=== PATIENT | female | born 1970 | race African-American/Black ===

== ENCOUNTER 2017-08-26 23:00 | Emergency (ER) | payer SELFPAY ==
[~2017-08-26] VITALS: Ht 157.5 cm; Wt 52.2 kg
[~2017-08-26 23:00] MED LIST: AMOXICILLIN500 MG; AZITHROMYCIN600 MG; BACTRIM-DS1 EA ORAL; CEFUROXIME250 MG; FLUCONAZOLE100 MG; FLUCONAZOLE100 MG ORAL; GARAMYCIN 0.3%1 DROP; IBUPROFEN600 MG ORAL; NYSTATIN100000 UN1; PERCOCET 5-3251 EACH ORAL; SULFAMETHOXAZO1 EAC2; TIVICAY50 MG PO; TRAMADOL HCL50 MG; TRUVADA 200 MG1 EAC1 ORAL; VALCYTE450 MG ORAL; ZITHROMAX600 MG ORAL
[2017-08-26 23:10] VITALS: BP 125/87
[2017-08-27] MEDS ORDERED: TRUFORM COMPRE1 EAC1 MC (00:12)
[2017-08-27 00:20] VITALS: BP 122/84
--- NOTE | 2017-08-28 00:44 | Emergency Room Report ---
History of Present Illness General Chief Complaint: Pain Source: Medical Record Present Illness HPI 47-year-old female presents ED for evaluation. Brought in by EMS. States she feels generalized weakness for many weeks now. Also complaining of swelling in her bilateral legs. On-and-off for years. Denies chest pain or shortness of breath. Denies fevers or chills. No other aggravating relieving factors. Denies any other associated symptoms Allergies: Coded Allergies: AZITHROMYCIN (Verified Adverse Reaction, Unknown, aphasic, altered, ) Patient History Past Medical History: none Past Surgical History: none Pertinent Family History: none Social History: Denies: smoking, alcohol use, drug use Last Menstrual Period: spotted this month Now: No Immunizations: UTD Reviewed Nursing Documentation: PMH: Agreed, PSxH: Agreed Nursing Documentation-PMH Hx Cardiac Problems: No Hx Cancer: No Hx Gastrointestinal Problems: No Hx Neurological Problems: Yes - cmv Hx Head Trauma: Yes Review of Systems All Other Systems: negative except mentioned in HPI Physical Exam Vital Signs Date Time Temp Pulse Resp B/P (MAP) Pulse Ox O2 Delivery O2 Flow Rate FiO2 08/26/17 22:58 98.5 92 18 127/88 99 Room Air 98.4 Sp02 EP Interpretation: reviewed, normal General Appearance: no apparent distress, alert, GCS 15, non-toxic Head: normocephalic, atraumatic Eyes: bilateral eye normal inspection, bilateral eye PERRL ENT: hearing grossly normal, normal pharynx, no angioedema, normal voice Neck: full range of motion, supple/symm/no masses Respiratory: chest non-tender, lungs clear, normal breath sounds, speaking full sentences Cardiovascular #1: regular rate, rhythm, no edema Cardiovascular #2: 2+ carotid (R), 2+ carotid (L), 2+ radial (R), 2+ radial (L) , 2+ dorsalis pedis (R), 2+ dorsalis pedis (L) Gastrointestinal: normal bowel sounds, non tender, soft, non-distended, no guarding, no rebound Rectal: deferred Genitourinary: normal inspection, no CVA tenderness Musculoskeletal: back normal, gait/station normal, normal range of motion, non- tender, swelling - 1+ pitting edema b/l LEs Neurologic: alert, oriented x3, responsive, motor strength/tone normal, sensory intact, speech normal Psychiatric: judgement/insight normal, memory normal, mood/affect normal, no suicidal/homicidal ideation Reflexes: 3+ bicep (R), 3+ bicep (L), 3+ tricep (R), 3+ tricep (L), 3+ knee (R) , 3+ knee (L) Skin: normal color, no rash, warm/dry, well hydrated Lymphatic: no adenopathy Medical Decision Making Diagnostic Impression: Primary Impression: Pedal edema ER Course 47-year-old female presents ED complaining of generalized weakness, also complaining of bilateral leg swelling DifferentialCHF, viral syndrome, dehydration, Patient placed in chair. Initial history and physical reveals a middle-aged female in no acute distress. Lungs clear. Heart sounds normal. Abdomen soft. Mucous membranes are moist. Good capillary refill. There is 1+ pitting edema to bilateral lower extremities. No calf tenderness. Patient states his condition is chronic for years. Suspicion for DVT is low. We will prescribe compression stockings Diagnosispedal edema Stable and discharged home with compression stockings. Follow-up with PMD. Return to ED if symptoms recur or worsen Last Vital Signs Date Time Temp Pulse Resp B/P (MAP) Pulse Ox O2 Delivery O2 Flow Rate FiO2 08/27/17 00:20 [id number] 78 16 122/84 100 Room Air 208.8 Status: improved Disposition: HOME, SELF-CARE Condition: Stable Scripts Comp.stocking,Knee,Regular,Med (Truform Compression Stocking) 1 Each Each EACH , #2 Prov: JOON JENKINS M.D. 08/27/17 Referrals: NOT CHOSEN MIO/,REFERRING (PCP) Patient Instructions: Edema, [id number] JOON JENKINS M.D. Aug 28, 2017 00:44
== END 2017-08-27 00:25 | disposition home or self-care (01) ==
LOC: EDBD 23:00 → EMR 23:16
DX: R60.0 Localized edema (principal); R53.1 Weakness; Z88.1 Allergy status to other antibiotic agents
CPT/HCPCS: 99283

== ENCOUNTER 2017-12-12 20:15 | Inpatient (IN) | payer SELFPAY ==
[~2017-12-12] VITALS: Ht 157.5 cm; Wt 52.2 kg
[~2017-12-12 20:15] MED LIST changes: +TRUFORM COMPRE1 EAC1 MC
[2017-12-12] MEDS ORDERED: Cefepime HCl 1 GM in NS 55 ML IV STA (20:26)
[2017-12-12 20:30] VITALS: BP 130/64
[2017-12-12] MEDS ORDERED: NS 1000ml 1,600 ML IVLG ONE (20:30)
[2017-12-12 21:11] LABS: APPEARANCE,URINE CLOUDY; BILIRUBIN, URINE NEGATIVE (NEGATIVE); COLOR,URINE PALE YELLOW; GLUCOSE, URINE (UA) NEGATIVE (NEGATIVE); HEMATOCRIT 19.5 % (37.0-47.0); KETONES,URINE NEGATIVE (NEGATIVE); LEUKOCYTE ESTERASE ,URINE 3+ (NEGATIVE); MEAN CORPUSCULAR VOLUME 87 FL (80-99); NITRITE,URINE NEGATIVE (NEGATIVE); PH,URINE 6 (4.5-8.0); PLATELET COUNT 287 K/UL (150-450); PROTEIN,URINE 3+ (NEGATIVE); RED BLOOD COUNT 2.23 M/UL (4.20-5.40); RED CELL DISTRIBUTION WIDTH 20.3 % (11.6-14.8); UROBILINOGEN,URINE 1 MG/DL (0.0-1.0); WHITE BLOOD COUNT 7.2 K/UL (4.8-10.8)
[2017-12-12 21:23] LABS: INR 1.1 (0.9-1.1)
[2017-12-12 21:30] VITALS: BP 114/60
[2017-12-12 21:37] LABS: ALANINE AMINOTRANSFERASE 14 U/L (12-78); ALBUMIN 2.4 G/DL (3.4-5.0); ALBUMIN/GLOBULIN RATIO 0.4 (1.0-2.7); ALKALINE PHOSPHATASE 68 U/L (46-116); ANION GAP 8 mmol/L (5-15); ASPARTATE AMINO TRANSFERASE 18 U/L (15-37); BILIRUBIN,TOTAL 0.3 MG/DL (0.2-1.0); BLOOD UREA NITROGEN 5 mg/dL (7-18); CALCIUM 9.1 MG/DL (8.5-10.1); CARBON DIOXIDE 28 MMOL/L (21-32); CHLORIDE 99 MMOL/L (98-107); CREATINE KINASE 35 U/L (26-308); SODIUM 136 MMOL/L (136-145)
[2017-12-12 21:40] LABS: POTASSIUM 2.6 MMOL/L (3.5-5.1)
--- NOTE | 2017-12-12 21:47 | Emergency Room Report ---
History of Present Illness General Chief Complaint: Generalized Weakness Source: Patient Present Illness HPI Patient presents with fevers chills weakness and myalgias and arthralgias. According to paramedics she had similar complaints and was taken to [facility] last week. She states she was kept there for 2 days and then discharged. She had complained to paramedics of generalized weakness. O2 sat 98% in field. She denies pain to RN. She states she was on antivirals in the past for HIV, then states she was stopped and no longer taking. She claims the h/o HIV was in error. She was admitted in 2013 with AIDS. Seen in August with edema and generalized weakness. No cough, sore throat, headache, NVD, dysuria, extremity pain. Denies depression. Some questionable answers to questions by RN, suggesting some delusional thinking. 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 - according to paramedics, she is homeless Last Menstrual Period: n/a Reviewed Nursing Documentation: PMH: Agreed; PSxH: Agreed Nursing Documentation-PMH Past Medical History: No Stated History Hx Cardiac Problems: No Hx Cancer: No Hx Gastrointestinal Problems: No Hx Neurological Problems: Yes - cmv Hx Head Trauma: Yes Review of Systems All Other Systems: negative except mentioned in HPI Physical Exam Vital Signs Date Time Temp Pulse Resp B/P (MAP) Pulse Ox O2 Delivery O2 Flow Rate FiO2 12/12/17 20:14 102.8 121 16 123/65 95 Room Air 102.7 Sp02 EP Interpretation: reviewed, normal General Appearance: no apparent distress, GCS 15, thin, Chronically Ill Head: normocephalic Eyes: bilateral eye PERRL, bilateral eye EOMI, bilateral eye conjunctivae pale ENT: moist mucus membranes Neck: supple Respiratory: lungs clear, normal breath sounds Cardiovascular #1: tachycardia Cardiovascular #2: 2+ radial (R) Gastrointestinal: normal inspection, normal bowel sounds, non tender, no mass, non-distended, scaphoid Rectal: heme negative stool Genitourinary: no CVA tenderness Musculoskeletal: back normal, gait/station normal, normal range of motion Neurologic: alert, motor strength/tone normal, DTRs symmetric, sensory intact, normal gait - hesitant with weakness, speech normal, oriented - X2 Psychiatric: no suicidal/homicidal ideation, other - slightly delusional Skin: normal inspection, warm/dry Medical Decision Making Diagnostic Impression: Primary Impression: Sepsis Qualified Codes: A41.9 - Sepsis, unspecified organism Additional Impressions: Profound anemia Qualified Codes: D64.9 - Anemia, unspecified Hypokalemia H/O human immunodeficiency virus infection UTI (urinary tract infection) Qualified Codes: N39.0 - Urinary tract infection, site not specified Protein calorie malnutrition Qualified Codes: E44.0 - Moderate protein-calorie malnutrition Delusions ER Course Patient presents with fever and chills and weakness with possible HIV and non- compliance. DDx: pna, uti, sepsis, electrolyte abnormalities amongst others. Evaluation with BC, lactate, CXR, EKG. Treatment with IV hydration and tylenol. Will consider antibiotics based on findings. The fact she might be immune compromised will necesitate broad spectrum antibiotics. Her history is variable and she is somewhat delusional telling RN "I am white and my skin color will change in a few minutes". May need psychiatric consultation. Not suicidal. EKG without injury. CXR clear. Labs with normal WBC (seen in past with leukopenia) with L shift, profound anemia, low potassium, pyuria. Initial lactate slightly elevated. (Prior H/H was normal 2013.) Potassium given PO. Antibiotics begun to cover urine. Blood ordered as expected drop in H/H with hydration. No evidence of active bleeding. Discussed risks and benefits of blood. Patient agrees with transfusion. Transfusion ordered. Patient clinically improved but still somewhat delusional. VS somewhat improved. Admit tele Dr. Jeffery. Laboratory Tests Test 12/12/17 20:40 White Blood Count 7.2 K/UL (4.8-10.8) Red Blood Count 2.23 M/UL (4.20-5.40) L Hemoglobin 6.0 G/DL (12.0-16.0) *L Hematocrit 19.5 % (37.0-47.0) L Mean Corpuscular Volume 87 FL (80-99) Mean Corpuscular Hemoglobin 26.8 PG (27.0-31.0) L Mean Corpuscular Hemoglobin Concent 30.6 G/DL (32.0-36.0) L Red Cell Distribution Width 20.3 % (11.6-14.8) H Platelet Count 287 K/UL (150-450) Mean Platelet Volume 6.5 FL (6.5-10.1) Neutrophils (%) (Auto) % (45.0-75.0) Lymphocytes (%) (Auto) % (20.0-45.0) Monocytes (%) (Auto) % (1.0-10.0) Eosinophils (%) (Auto) % (0.0-3.0) Basophils (%) (Auto) % (0.0-2.0) Differential Total Cells Counted 100 Neutrophils % (Manual) 81 % (45-75) H Lymphocytes % (Manual) 11 % (20-45) L Monocytes % (Manual) 7 % (1-10) Eosinophils % (Manual) 0 % (0-3) Basophils % (Manual) 0 % (0-2) Band Neutrophils 1 % (0-8) Platelet Estimate Adequate Platelet Morphology Normal Polychromasia 1+ Hypochromasia 2+ Anisocytosis 2+ Prothrombin Time 11.4 SEC (9.30-11.50) Prothrombin Time INR 1.1 (0.9-1.1) PTT 35 SEC (23-33) H Urine Color Pale yellow Urine Appearance Cloudy Urine pH 6 (4.5-8.0) Urine Specific [place] 1.010 (1.005-1.035) Urine Protein 3+ (NEGATIVE) H Urine Glucose (UA) Negative (NEGATIVE) Urine Ketones Negative (NEGATIVE) Urine Occult Blood 3+ (NEGATIVE) H Urine Nitrite Negative (NEGATIVE) Urine Bilirubin Negative (NEGATIVE) Urine Urobilinogen 1 MG/DL (0.0-1.0) H Urine Leukocyte Esterase 3+ (NEGATIVE) H Urine RBC 2-4 /HPF (0 - 2) H Urine WBC Tntc /HPF (0 - 2) H Urine Squamous Epithelial Cells Few /LPF (NONE/OCC) Urine Bacteria Many /HPF (NONE) H Sodium Level 136 MMOL/L (136-145) Potassium Level 2.6 MMOL/L (3.5-5.1) *L Chloride Level 99 MMOL/L (98-107) Carbon Dioxide Level 28 MMOL/L (21-32) Anion Gap 8 mmol/L (5-15) Blood Urea Nitrogen 5 mg/dL (7-18) L Creatinine 1.0 MG/DL (0.55-1.30) Estimate Glomerular Filtration Rate > 60 mL/min (>60) Glucose Level 90 MG/DL (74-106) Lactic Acid Level 2.10 mmol/L (0.4-2.0) H Calcium Level 9.1 MG/DL (8.5-10.1) Total Bilirubin 0.3 MG/DL (0.2-1.0) Aspartate Amino Transferase (AST) 18 U/L (15-37) Alanine Aminotransferase (ALT) 14 U/L (12-78) Alkaline Phosphatase 68 U/L (46-116) Total Creatine Kinase 35 U/L (26-308) Pro-B-Type Natriuretic Peptide 179 pg/mL (0-125) H Total Protein 7.8 G/DL (6.4-8.2) Albumin 2.4 G/DL (3.4-5.0) L Globulin 5.4 g/dL Albumin/Globulin Ratio 0.4 (1.0-2.7) L EKG Diagnostic Results Rate: tachycardiac ST Segments: no acute changes Rhythm Strip Diag. Results EP Interpretation: yes Rhythm: no PVC's, no ectopy, other - ST Chest X-Ray Diagnostic Results Chest X-Ray Diagnostic Results : Chest X-Ray Ordered: Yes # of Views/Limited/Complete: 1 View Indication: Other EP Interpretation: Yes Interpretation: no consolidation, no effusion, no pneumothorax Impression: No acute disease Electronically Signed by: Electronically signed by Yonas Soto MD Last Vital Signs Date Time Temp Pulse Resp B/P (MAP) Pulse Ox O2 Delivery O2 Flow Rate FiO2 12/13/17 00:00 98.4 89 18 98.4 12/12/17 22:30 112/67 99 Room Air Status: improved Disposition: ADMITTED INPATIENT Condition: Serious Referrals: NOT CHOSEN MIO/,REFERRING (PCP) Yonas Soto M.D. Dec 12, 2017 21:47
[2017-12-12 22:30] VITALS: BP 112/67
[2017-12-12 23:30] VITALS: BP 110/63
[2017-12-13 00:30] VITALS: BP 104/66
[2017-12-13 04:00] VITALS: BP 102/67
--- NOTE | 2017-12-13 07:39 | Infectious Diseases Prog Note ---
Assessment/Plan Problems: (1) Sepsis Assessment & Plan: will send blood culture and start vancomycin with cefepime empirically , add zithromax to cover for possible atypical pneumonia since she is immunocompromised (2) UTI (urinary tract infection) Assessment & Plan: will start cefepime pending urine culture (3) Fever Assessment & Plan: due to the above , continue antibiotics , and tylenol (4) HIV (human immunodeficiency virus infection) Assessment & Plan: not on any treatment since 2016, will order viral load and CD4 to assess her compliance and stage , will screen for syphilis, chlamydia and gonorrhoea Subjective Allergies: Coded Allergies: No Known Allergies (Unverified , 12/12/17) Objective Vital Signs Last 24 Hour Vital Signs Date Time Temp Pulse Resp B/P (MAP) Pulse Ox O2 Delivery O2 Flow Rate FiO2 12/13/17 04:00 97.2 75 18 102/67 98 Room Air 97.2 12/13/17 04:00 78 12/13/17 01:15 98.4 88 16 104/64 98 Room Air 12/13/17 00:30 98.4 78 18 104/66 99 Room Air 98.4 12/13/17 00:00 98.4 89 18 98.4 12/12/17 23:45 98.4 87 16 98.4 12/12/17 23:30 98.8 87 16 110/63 99 Room Air 98.8 12/12/17 22:30 99.4 89 16 112/67 99 Room Air 99.4 12/12/17 21:30 99.9 108 16 114/60 98 Room Air 99.9 12/12/17 21:07 102.7 12/12/17 20:30 102.7 121 16 130/64 97 Room Air 102.7 12/12/17 20:14 102.8 121 16 123/65 95 Room Air 102.7 Height (Feet): 5 Height (Inches): 2.00 Weight (Pounds): 115 Laboratory Tests Test 12/12/17 20:40 12/12/17 22:45 White Blood Count 7.2 K/UL (4.8-10.8) Red Blood Count 2.23 M/UL (4.20-5.40) L Hemoglobin 6.0 G/DL (12.0-16.0) *L Hematocrit 19.5 % (37.0-47.0) L Mean Corpuscular Volume 87 FL (80-99) Mean Corpuscular Hemoglobin 26.8 PG (27.0-31.0) L Mean Corpuscular Hemoglobin Concent 30.6 G/DL (32.0-36.0) L Red Cell Distribution Width 20.3 % (11.6-14.8) H Platelet Count 287 K/UL (150-450) Mean Platelet Volume 6.5 FL (6.5-10.1) Neutrophils (%) (Auto) % (45.0-75.0) Lymphocytes (%) (Auto) % (20.0-45.0) Monocytes (%) (Auto) % (1.0-10.0) Eosinophils (%) (Auto) % (0.0-3.0) Basophils (%) (Auto) % (0.0-2.0) Differential Total Cells Counted 100 Neutrophils % (Manual) 81 % (45-75) H Lymphocytes % (Manual) 11 % (20-45) L Monocytes % (Manual) 7 % (1-10) Eosinophils % (Manual) 0 % (0-3) Basophils % (Manual) 0 % (0-2) Band Neutrophils 1 % (0-8) Platelet Estimate Adequate Platelet Morphology Normal Polychromasia 1+ Hypochromasia 2+ Anisocytosis 2+ Prothrombin Time 11.4 SEC (9.30-11.50) Prothromb Time International Ratio 1.1 (0.9-1.1) Activated Partial Thromboplast Time 35 SEC (23-33) H Urine Color Pale yellow Urine Appearance Cloudy Urine pH 6 (4.5-8.0) Urine Specific [place] 1.010 (1.005-1.035) Urine Protein 3+ (NEGATIVE) H Urine Glucose (UA) Negative (NEGATIVE) Urine Ketones Negative (NEGATIVE) Urine Occult Blood 3+ (NEGATIVE) H Urine Nitrite Negative (NEGATIVE) Urine Bilirubin Negative (NEGATIVE) Urine Urobilinogen 1 MG/DL (0.0-1.0) H Urine Leukocyte Esterase 3+ (NEGATIVE) H Urine RBC 2-4 /HPF (0 - 2) H Urine WBC Tntc /HPF (0 - 2) H Urine Squamous Epithelial Cells Few /LPF (NONE/OCC) Urine Bacteria Many /HPF (NONE) H Sodium Level 136 MMOL/L (136-145) Potassium Level 2.6 MMOL/L (3.5-5.1) *L Chloride Level 99 MMOL/L (98-107) Carbon Dioxide Level 28 MMOL/L (21-32) Anion Gap 8 mmol/L (5-15) Blood Urea Nitrogen 5 mg/dL (7-18) L Creatinine 1.0 MG/DL (0.55-1.30) Estimat Glomerular Filtration Rate > 60 mL/min (>60) Glucose Level 90 MG/DL (74-106) Lactic Acid Level 2.10 mmol/L (0.4-2.0) H 0.90 mmol/L (0.66-2.22) Calcium Level 9.1 MG/DL (8.5-10.1) Total Bilirubin 0.3 MG/DL (0.2-1.0) Aspartate Amino Transf (AST/SGOT) 18 U/L (15-37) Alanine Aminotransferase (ALT/SGPT) 14 U/L (12-78) Alkaline Phosphatase 68 U/L (46-116) Total Creatine Kinase 35 U/L (26-308) Pro-B-Type Natriuretic Peptide 179 pg/mL (0-125) H Total Protein 7.8 G/DL (6.4-8.2) Albumin 2.4 G/DL (3.4-5.0) L Globulin 5.4 g/dL Albumin/Globulin Ratio 0.4 (1.0-2.7) L Current Medications Medications (Trade) Dose Ordered Sig/Thierno Route PRN Reason Start Time Stop Time Status Last Admin Dose Admin Acetaminophen (Tylenol) 650 mg Q6H PRN ORAL Mild Pain/Temp > 100.5 12/13/17 07:00 01/12/18 06:59 Azithromycin (Zithromax) 250 mg DAILY ORAL 12/13/17 09:00 12/20/17 08:59 UNV Cefepime HCl 2 gm/ Dextrose 55 ml @ 110 mls/hr EVERY 12 HOURS IVPB 12/13/17 09:00 12/20/17 08:59 UNV Pantoprazole (Protonix) 40 mg DAILY IVP 12/13/17 09:00 01/12/18 08:59 Sodium Chloride 1,000 ml @ 100 mls/hr Q10H IV 12/13/17 08:00 01/12/18 07:59 Vancomycin HCl (Vanco rx to dose) 1 ea DAILY PRN MISC Per rx protocol 12/13/17 07:45 01/12/18 07:44 Vesta Valiente M.D. Dec 13, 2017 07:39
[2017-12-13 07:55] VITALS: BP 107/73
[2017-12-13] MEDS: Cefepime HCl 2 GM in D5W 110 ML IVPB SCH ×2 (08:44→22:04)
[2017-12-13] MEDS: Pantoprazole Inj IVP SCH (08:44)
[2017-12-13] MEDS: Azithromycin 250mg tab ORAL SCH (08:45)
--- NOTE | 2017-12-13 08:54 | General Progress Note ---
Assessment/Plan Assessment/Plan patient is seen and examined. Dictation in progress Subjective Allergies: Coded Allergies: No Known Allergies (Unverified , 12/12/17) Objective Last 24 Hour Vital Signs Date Time Temp Pulse Resp B/P (MAP) Pulse Ox O2 Delivery O2 Flow Rate FiO2 12/13/17 07:55 99.6 88 18 107/73 100 Room Air 99.6 12/13/17 04:00 97.2 75 18 102/67 98 Room Air 97.2 12/13/17 04:00 78 12/13/17 01:15 98.4 88 16 104/64 98 Room Air 12/13/17 00:30 98.4 78 18 104/66 99 Room Air 98.4 12/13/17 00:00 98.4 89 18 98.4 12/12/17 23:45 98.4 87 16 98.4 12/12/17 23:30 98.8 87 16 110/63 99 Room Air 98.8 12/12/17 22:30 99.4 89 16 112/67 99 Room Air 99.4 12/12/17 21:30 99.9 108 16 114/60 98 Room Air 99.9 12/12/17 21:07 102.7 12/12/17 20:30 102.7 121 16 130/64 97 Room Air 102.7 12/12/17 20:14 102.8 121 16 123/65 95 Room Air 102.7 Intake and Output 12/12/17 12/13/17 19:00 07:00 Intake Total 1000 ml Balance 1000 ml IV Total 1000 ml # Voids 6 # Bowel Movements 1 Laboratory Tests 12/12/17 20:40: White Blood Count 7.2, Red Blood Count 2.23L, Hemoglobin 6.0*L, Hematocrit 19.5L , Mean Corpuscular Volume 87, Mean Corpuscular Hemoglobin 26.8L, Mean Corpuscular Hemoglobin Concent 30.6L, Red Cell Distribution Width 20.3H, Platelet Count 287, Mean Platelet Volume 6.5, Neutrophils (%) (Auto) , Lymphocytes (%) (Auto) , Monocytes (%) (Auto) , Eosinophils (%) (Auto) , Basophils (%) (Auto) , Differential Total Cells Counted 100, Neutrophils % ( Manual) 81H, Lymphocytes % (Manual) 11L, Monocytes % (Manual) 7, Eosinophils % ( Manual) 0, Basophils % (Manual) 0, Band Neutrophils 1, Platelet Estimate Adequate, Platelet Morphology Normal, Polychromasia 1+, Hypochromasia 2+, Anisocytosis 2+, Prothrombin Time 11.4, Prothromb Time International Ratio 1.1, Activated Partial Thromboplast Time 35H, Urine Color Pale yellow, Urine Appearance Cloudy, Urine pH 6, Urine Specific [place] 1.010, Urine Protein 3+H, Urine Glucose (UA) Negative, Urine Ketones Negative, Urine Occult Blood 3+H, Urine Nitrite Negative, Urine Bilirubin Negative, Urine Urobilinogen 1H, Urine Leukocyte Esterase 3+H, Urine RBC 2-4H, Urine WBC TntcH, Urine Squamous Epithelial Cells Few, Urine Bacteria ManyH, Sodium Level 136, Potassium Level 2.6*L, Chloride Level 99, Carbon Dioxide Level 28, Anion Gap 8, Blood Urea Nitrogen 5L, Creatinine 1.0, Estimat Glomerular Filtration Rate > 60, Glucose Level 90, Lactic Acid Level 2.10H, Calcium Level 9.1, Total Bilirubin 0.3, Aspartate Amino Transf (AST/SGOT) 18, Alanine Aminotransferase (ALT/SGPT) 14, Alkaline Phosphatase 68, Total Creatine Kinase 35, Pro-B-Type Natriuretic Peptide 179H, Total Protein 7.8, Albumin 2.4L, Globulin 5.4, Albumin/Globulin Ratio 0.4L 12/12/17 22:45: Lactic Acid Level 0.90 Height (Feet): 5 Height (Inches): 2.00 Weight (Pounds): 115 Padmini Jeffery MD Dec 13, 2017 08:54
[2017-12-13] MEDS ORDERED: Cefepime HCl 1 GM in D5W 55 ML IVPB SCH (09:00)
[2017-12-13] MEDS ORDERED: Vancomycin 1250mg/D5W 250ml IVPB ONE (10:00)
[2017-12-13 10:55] LABS: HEMATOCRIT 28.3 % (37.0-47.0); MEAN CORPUSCULAR VOLUME 90 FL (80-99); PLATELET COUNT 255 K/UL (150-450); RED BLOOD COUNT 3.14 M/UL (4.20-5.40); RED CELL DISTRIBUTION WIDTH 16.8 % (11.6-14.8); WHITE BLOOD COUNT 5.2 K/UL (4.8-10.8)
[2017-12-13 10:58] LABS: HEMOGLOBIN 8.9 G/DL (12.0-16.0)
--- NOTE | 2017-12-13 11:13 | Diagnostic Imaging Report ---
Indication: Dyspnea Comparison: 09/20/2013 A single view chest radiograph was obtained. Findings: Cardiomediastinal appearance is within normal limits for age. Pulmonary vascularity is appropriate. The diaphragmatic contour is smooth and costophrenic angles are sharp. No pleural effusions are identified. The bones are unremarkable. Impression: No acute findings
[2017-12-13 11:15] LABS: ALANINE AMINOTRANSFERASE 12 U/L (12-78); ALBUMIN 2.1 G/DL (3.4-5.0); ALBUMIN/GLOBULIN RATIO 0.5 (1.0-2.7); ALKALINE PHOSPHATASE 62 U/L (46-116); ANION GAP 14 mmol/L (5-15); ASPARTATE AMINO TRANSFERASE 14 U/L (15-37); BILIRUBIN,TOTAL 0.3 MG/DL (0.2-1.0); BLOOD UREA NITROGEN 6 mg/dL (7-18); CALCIUM 7.7 MG/DL (8.5-10.1); CARBON DIOXIDE 21 MMOL/L (21-32); CHLORIDE 107 MMOL/L (98-107); CREATININE 0.7 MG/DL (0.55-1.30); POTASSIUM 3.3 MMOL/L (3.5-5.1); SODIUM 142 MMOL/L (136-145)
[2017-12-13] MEDS ORDERED: LORazepam 1mg tab ORAL PRN (12:00)
[2017-12-13 12:03] VITALS: BP 110/70
--- NOTE | 2017-12-13 12:41 | Consultation ---
History of Present Illness General Date patient seen: Dec 13, 2017 Chief Complaint: Generalized Weakness Present Illness HPI 47 yo female with hx of schizophrenia and mmp who presents with fevers chills weakness and myalgias and arthralgias. The pt has anxiety and agitation. In addition, the pt is delusional and was disorganized. the pt was unable to have a rational conversation. The pt has poor insight. the pt was responding to internal. Allergies: Coded Allergies: No Known Allergies (Unverified , 12/12/17) Medication History Scheduled Dolutegravir Sodium (Tivicay), 50 MG PO DAILY, (Reported) Emtricitabine/Tenofovir 200-300MG* (Truvada 200-300MG*), 1 TAB ORAL DAILY, ( Reported) Durable Medical Equipment Comp.stocking,Knee,Regular,Med (Truform Compression Stocking), EACH [facility], (DME) Patient History Limited by: medical condition History Provided By: Patient, Medical Record, PMD Healthcare decision maker Resuscitation status Full Code Advanced Directive on File Past Medical/Surgical History Past Medical/Surgical History: (1) [id number] (2) Head trauma (3) Adverse drug reaction (4) Altered level of consciousness (5) Acute HIV infection syndrome (6) Acute confusion due to infection (7) Thrush (8) Leucopenia (9) 65129 (10) 297102 (11) Headache (12) Headache (13) Pedal edema (14) HIV (human immunodeficiency virus infection) (15) Protein calorie malnutrition (16) H/O human immunodeficiency virus infection (17) Profound anemia (18) Hypokalemia (19) Fever (20) Sepsis (21) UTI (urinary tract infection) Review of Systems Psychiatric: Reports: prior hx, anxiety, depressed feelings, emotional problems Physical Exam General Appearance: no apparent distress, alert, confused, agitated Last 24 Hour Vital Signs Date Time Temp Pulse Resp B/P (MAP) Pulse Ox O2 Delivery O2 Flow Rate FiO2 12/13/17 12:03 98.2 83 18 110/70 (83) 100 98.2 12/13/17 09:00 Room Air 12/13/17 08:00 81 12/13/17 07:55 99.6 88 18 107/73 100 Room Air 99.6 12/13/17 04:00 97.2 75 18 102/67 98 Room Air 97.2 12/13/17 04:00 78 12/13/17 01:15 98.4 88 16 104/64 98 Room Air 12/13/17 00:30 98.4 78 18 104/66 99 Room Air 98.4 12/13/17 00:00 98.4 89 18 98.4 12/12/17 23:45 98.4 87 16 98.4 12/12/17 23:30 98.8 87 16 110/63 99 Room Air 98.8 12/12/17 22:30 99.4 89 16 112/67 99 Room Air 99.4 12/12/17 21:30 99.9 108 16 114/60 98 Room Air 99.9 12/12/17 21:07 102.7 12/12/17 20:30 102.7 121 16 130/64 97 Room Air 102.7 12/12/17 20:14 102.8 121 16 123/65 95 Room Air 102.7 Intake and Output 12/12/17 12/13/17 19:00 07:00 Intake Total 1000 ml Balance 1000 ml IV Total 1000 ml # Voids 6 # Bowel Movements 1 Laboratory Tests Test 12/12/17 20:40 12/12/17 22:45 12/13/17 10:10 White Blood Count 7.2 K/UL (4.8-10.8) 5.2 K/UL (4.8-10.8) Red Blood Count 2.23 M/UL (4.20-5.40) L 3.14 M/UL (4.20-5.40) L Hemoglobin 6.0 G/DL (12.0-16.0) *L 8.9 G/DL (12.0-16.0) #L Hematocrit 19.5 % (37.0-47.0) L 28.3 % (37.0-47.0) #L Mean Corpuscular Volume 87 FL (80-99) 90 FL (80-99) Mean Corpuscular Hemoglobin 26.8 PG (27.0-31.0) L 28.3 PG (27.0-31.0) Mean Corpuscular Hemoglobin Concent 30.6 G/DL (32.0-36.0) L 31.5 G/DL (32.0-36.0) L Red Cell Distribution Width 20.3 % (11.6-14.8) H 16.8 % (11.6-14.8) H Platelet Count 287 K/UL (150-450) 255 K/UL (150-450) Mean Platelet Volume 6.5 FL (6.5-10.1) 6.5 FL (6.5-10.1) Neutrophils (%) (Auto) % (45.0-75.0) % (45.0-75.0) Lymphocytes (%) (Auto) % (20.0-45.0) % (20.0-45.0) Monocytes (%) (Auto) % (1.0-10.0) % (1.0-10.0) Eosinophils (%) (Auto) % (0.0-3.0) % (0.0-3.0) Basophils (%) (Auto) % (0.0-2.0) % (0.0-2.0) Differential Total Cells Counted 100 Neutrophils % (Manual) 81 % (45-75) H Pending Lymphocytes % (Manual) 11 % (20-45) L Pending Monocytes % (Manual) 7 % (1-10) Eosinophils % (Manual) 0 % (0-3) Basophils % (Manual) 0 % (0-2) Band Neutrophils 1 % (0-8) Platelet Estimate Adequate Pending Platelet Morphology Normal Pending Polychromasia 1+ Hypochromasia 2+ Anisocytosis 2+ Prothrombin Time 11.4 SEC (9.30-11.50) Prothromb Time International Ratio 1.1 (0.9-1.1) Activated Partial Thromboplast Time 35 SEC (23-33) H Urine Color Pale yellow Urine Appearance Cloudy Urine pH 6 (4.5-8.0) Urine Specific [place] 1.010 (1.005-1.035) Urine Protein 3+ (NEGATIVE) H Urine Glucose (UA) Negative (NEGATIVE) Urine Ketones Negative (NEGATIVE) Urine Occult Blood 3+ (NEGATIVE) H Urine Nitrite Negative (NEGATIVE) Urine Bilirubin Negative (NEGATIVE) Urine Urobilinogen 1 MG/DL (0.0-1.0) H Urine Leukocyte Esterase 3+ (NEGATIVE) H Urine RBC 2-4 /HPF (0 - 2) H Urine WBC Tntc /HPF (0 - 2) H Urine Squamous Epithelial Cells Few /LPF (NONE/OCC) Urine Bacteria Many /HPF (NONE) H Sodium Level 136 MMOL/L (136-145) 142 MMOL/L (136-145) Potassium Level 2.6 MMOL/L (3.5-5.1) *L 3.3 MMOL/L (3.5-5.1) L Chloride Level 99 MMOL/L (98-107) 107 MMOL/L (98-107) Carbon Dioxide Level 28 MMOL/L (21-32) 21 MMOL/L (21-32) Anion Gap 8 mmol/L (5-15) 14 mmol/L (5-15) Blood Urea Nitrogen 5 mg/dL (7-18) L 6 mg/dL (7-18) L Creatinine 1.0 MG/DL (0.55-1.30) 0.7 MG/DL (0.55-1.30) Estimat Glomerular Filtration Rate > 60 mL/min (>60) > 60 mL/min (>60) Glucose Level 90 MG/DL (74-106) 83 MG/DL (74-106) Lactic Acid Level 2.10 mmol/L (0.4-2.0) H 0.90 mmol/L (0.66-2.22) Calcium Level 9.1 MG/DL (8.5-10.1) 7.7 MG/DL (8.5-10.1) L Total Bilirubin 0.3 MG/DL (0.2-1.0) 0.3 MG/DL (0.2-1.0) Aspartate Amino Transf (AST/SGOT) 18 U/L (15-37) 14 U/L (15-37) L Alanine Aminotransferase (ALT/SGPT) 14 U/L (12-78) 12 U/L (12-78) Alkaline Phosphatase 68 U/L (46-116) 62 U/L (46-116) Total Creatine Kinase 35 U/L (26-308) Pro-B-Type Natriuretic Peptide 179 pg/mL (0-125) H Total Protein 7.8 G/DL (6.4-8.2) 6.7 G/DL (6.4-8.2) Albumin 2.4 G/DL (3.4-5.0) L 2.1 G/DL (3.4-5.0) L Globulin 5.4 g/dL 4.6 g/dL Albumin/Globulin Ratio 0.4 (1.0-2.7) L 0.5 (1.0-2.7) L Lymphocytes Pending Percent CD3 Cells Pending Absolute CD3 Count Pending Percent CD4 Cells Pending Absolute CD4 Count Pending T-Lymphocyte CD4/CD8 Ratio Pending Percent CD8 Cells Pending Absolute CD8 Count Pending Rapid Plasma Reagin Pending HIV-1 RNA (PCR) log10 Value Pending HIV-1 RNA Ultraquantitative (PCR) Pending Microbiology Date/Time Source Procedure Growth Status 12/12/17 20:40 Urine,Clean Catch Urine Culture - Preliminary Gram Negative Bacillus 1 Resulted Height (Feet): 5 Height (Inches): 2.00 Weight (Pounds): 115 Medications Current Medications Medications (Trade) Dose Ordered Sig/Thierno Route PRN Reason Start Time Stop Time Status Last Admin Dose Admin Acetaminophen (Tylenol) 650 mg Q6H PRN ORAL Mild Pain/Temp > 100.5 12/13/17 07:00 01/12/18 06:59 Azithromycin (Zithromax) 250 mg DAILY ORAL 12/13/17 09:00 12/20/17 08:59 12/13/17 08:45 Cefepime HCl 2 gm/ Dextrose 110 ml @ 220 mls/hr EVERY 12 HOURS IVPB 12/13/17 09:00 12/20/17 08:59 12/13/17 08:44 Dextrose 1,000 ml @ 100 mls/hr Q10H IV 12/13/17 08:45 01/12/18 08:44 12/13/17 08:45 Haloperidol Decanoate (Haldol) 50 mg ONCE ONCE IM 12/13/17 14:00 12/13/17 14:01 Lorazepam (Ativan) 2 mg Q6H PRN ORAL For Anxiety 12/13/17 12:00 12/20/17 11:59 Pantoprazole (Protonix) 40 mg DAILY IVP 12/13/17 09:00 01/12/18 08:59 12/13/17 08:44 Risperidone (RisperDAL) 2 mg BEDTIME ORAL 12/13/17 21:00 01/12/18 20:59 Vancomycin HCl (Vanco rx to dose) 1 ea DAILY PRN MISC Per rx protocol 12/13/17 07:45 01/12/18 07:44 Vancomycin HCl 1 gm/Dextrose 275 ml @ 183.708 mls/hr Q24H IVPB 12/14/17 10:00 12/19/17 09:59 Assessment/Plan Status: stable Assessment/Plan Schizophrenia Haldol dec risperdal 2mg qhs the pt should be discharged after medically cleared. Wesley Pérez MD Dec 13, 2017 12:41
[2017-12-13] MEDS ORDERED: Haloperidol Decanoate 50mg Inj IM ONE (14:00)
[2017-12-13 16:03] VITALS: BP 100/63
--- NOTE | 2017-12-13 19:40 | Cardiology Progress Note ---
Assessment/Plan Assessment/Plan The patient is seen and examined, full consult note will be dictated. Objective Last 24 Hour Vital Signs Date Time Temp Pulse Resp B/P (MAP) Pulse Ox O2 Delivery O2 Flow Rate FiO2 12/13/17 16:03 98.5 82 18 100/63 (75) 100 98.5 12/13/17 16:00 94 12/13/17 12:03 98.2 83 18 110/70 (83) 100 98.2 12/13/17 12:00 73 12/13/17 09:00 Room Air 12/13/17 08:00 81 12/13/17 07:55 99.6 88 18 107/73 100 Room Air 99.6 12/13/17 04:00 97.2 75 18 102/67 98 Room Air 97.2 12/13/17 04:00 78 12/13/17 01:15 98.4 88 16 104/64 98 Room Air 12/13/17 00:30 98.4 78 18 104/66 99 Room Air 98.4 12/13/17 00:00 98.4 89 18 98.4 12/12/17 23:45 98.4 87 16 98.4 12/12/17 23:30 98.8 87 16 110/63 99 Room Air 98.8 12/12/17 22:30 99.4 89 16 112/67 99 Room Air 99.4 12/12/17 21:30 99.9 108 16 114/60 98 Room Air 99.9 12/12/17 21:07 102.7 12/12/17 20:30 102.7 121 16 130/64 97 Room Air 102.7 12/12/17 20:14 102.8 121 16 123/65 95 Room Air 102.7 Intake and Output 12/12/17 12/13/17 19:00 07:00 Intake Total 1000 ml Balance 1000 ml IV Total 1000 ml # Voids 6 # Bowel Movements 1 Laboratory Tests Test 12/12/17 20:40 12/12/17 22:45 12/13/17 10:10 White Blood Count 7.2 K/UL (4.8-10.8) 5.2 K/UL (4.8-10.8) Red Blood Count 2.23 M/UL (4.20-5.40) L 3.14 M/UL (4.20-5.40) L Hemoglobin 6.0 G/DL (12.0-16.0) *L 8.9 G/DL (12.0-16.0) #L Hematocrit 19.5 % (37.0-47.0) L 28.3 % (37.0-47.0) #L Mean Corpuscular Volume 87 FL (80-99) 90 FL (80-99) Mean Corpuscular Hemoglobin 26.8 PG (27.0-31.0) L 28.3 PG (27.0-31.0) Mean Corpuscular Hemoglobin Concent 30.6 G/DL (32.0-36.0) L 31.5 G/DL (32.0-36.0) L Red Cell Distribution Width 20.3 % (11.6-14.8) H 16.8 % (11.6-14.8) H Platelet Count 287 K/UL (150-450) 255 K/UL (150-450) Mean Platelet Volume 6.5 FL (6.5-10.1) 6.5 FL (6.5-10.1) Neutrophils (%) (Auto) % (45.0-75.0) % (45.0-75.0) Lymphocytes (%) (Auto) % (20.0-45.0) % (20.0-45.0) Monocytes (%) (Auto) % (1.0-10.0) % (1.0-10.0) Eosinophils (%) (Auto) % (0.0-3.0) % (0.0-3.0) Basophils (%) (Auto) % (0.0-2.0) % (0.0-2.0) Differential Total Cells Counted 100 100 Neutrophils % (Manual) 81 % (45-75) H 86 % (45-75) H Lymphocytes % (Manual) 11 % (20-45) L 7 % (20-45) L Monocytes % (Manual) 7 % (1-10) 7 % (1-10) Eosinophils % (Manual) 0 % (0-3) 0 % (0-3) Basophils % (Manual) 0 % (0-2) 0 % (0-2) Band Neutrophils 1 % (0-8) 0 % (0-8) Platelet Estimate Adequate Adequate Platelet Morphology Normal Normal Polychromasia 1+ Hypochromasia 2+ 2+ Anisocytosis 2+ 1+ Prothrombin Time 11.4 SEC (9.30-11.50) Prothromb Time International Ratio 1.1 (0.9-1.1) Activated Partial Thromboplast Time 35 SEC (23-33) H Urine Color Pale yellow Urine Appearance Cloudy Urine pH 6 (4.5-8.0) Urine Specific [place] 1.010 (1.005-1.035) Urine Protein 3+ (NEGATIVE) H Urine Glucose (UA) Negative (NEGATIVE) Urine Ketones Negative (NEGATIVE) Urine Occult Blood 3+ (NEGATIVE) H Urine Nitrite Negative (NEGATIVE) Urine Bilirubin Negative (NEGATIVE) Urine Urobilinogen 1 MG/DL (0.0-1.0) H Urine Leukocyte Esterase 3+ (NEGATIVE) H Urine RBC 2-4 /HPF (0 - 2) H Urine WBC Tntc /HPF (0 - 2) H Urine Squamous Epithelial Cells Few /LPF (NONE/OCC) Urine Bacteria Many /HPF (NONE) H Sodium Level 136 MMOL/L (136-145) 142 MMOL/L (136-145) Potassium Level 2.6 MMOL/L (3.5-5.1) *L 3.3 MMOL/L (3.5-5.1) L Chloride Level 99 MMOL/L (98-107) 107 MMOL/L (98-107) Carbon Dioxide Level 28 MMOL/L (21-32) 21 MMOL/L (21-32) Anion Gap 8 mmol/L (5-15) 14 mmol/L (5-15) Blood Urea Nitrogen 5 mg/dL (7-18) L 6 mg/dL (7-18) L Creatinine 1.0 MG/DL (0.55-1.30) 0.7 MG/DL (0.55-1.30) Estimat Glomerular Filtration Rate > 60 mL/min (>60) > 60 mL/min (>60) Glucose Level 90 MG/DL (74-106) 83 MG/DL (74-106) Lactic Acid Level 2.10 mmol/L (0.4-2.0) H 0.90 mmol/L (0.66-2.22) Calcium Level 9.1 MG/DL (8.5-10.1) 7.7 MG/DL (8.5-10.1) L Total Bilirubin 0.3 MG/DL (0.2-1.0) 0.3 MG/DL (0.2-1.0) Aspartate Amino Transf (AST/SGOT) 18 U/L (15-37) 14 U/L (15-37) L Alanine Aminotransferase (ALT/SGPT) 14 U/L (12-78) 12 U/L (12-78) Alkaline Phosphatase 68 U/L (46-116) 62 U/L (46-116) Total Creatine Kinase 35 U/L (26-308) Pro-B-Type Natriuretic Peptide 179 pg/mL (0-125) H Total Protein 7.8 G/DL (6.4-8.2) 6.7 G/DL (6.4-8.2) Albumin 2.4 G/DL (3.4-5.0) L 2.1 G/DL (3.4-5.0) L Globulin 5.4 g/dL 4.6 g/dL Albumin/Globulin Ratio 0.4 (1.0-2.7) L 0.5 (1.0-2.7) L Lymphocytes Pending Percent CD3 Cells Pending Absolute CD3 Count Pending Percent CD4 Cells Pending Absolute CD4 Count Pending T-Lymphocyte CD4/CD8 Ratio Pending Percent CD8 Cells Pending Absolute CD8 Count Pending Rapid Plasma Reagin Pending HIV-1 RNA (PCR) log10 Value Pending HIV-1 RNA Ultraquantitative (PCR) Pending Microbiology Date/Time Source Procedure Growth Status 12/12/17 20:40 Urine,Clean Catch Urine Culture - Preliminary Gram Negative Bacillus 1 Resulted Ander Gallardo MD Dec 13, 2017 19:40
[2017-12-13 20:00] VITALS: BP 109/72
--- NOTE | 2017-12-13 21:15 | Consultation ---
DATE OF CONSULTATION: 12/13/2017 INFECTIOUS DISEASE CONSULTATION CONSULTING PHYSICIAN: Vesta Dunn M.D. REQUESTING PHYSICIAN: Padmini Jeffery M.D. REASON FOR CONSULTATION: Fever, chills, sepsis, and possible pneumonia in HIV patient. Recommendation for antibiotics treatment. HISTORY OF PRESENT ILLNESS: The patient is a 47-year-old female with history of human immunodeficiency virus since 2013, who has not been on any anti-retroviral treatment since 2016 , presented to [facility] with fever, chills, weakness, malaise, and arthralgia. The patient was evaluated at [facility] last week and she was monitored for two days over there and discharged home. The patient complained of cough productive of yellowish phlegm. No hemoptysis. No diarrhea. No nausea or vomiting. In the emergency room, the patient had a chest x-ray that showed no acute infiltration, but her temperature was significantly elevated at 102.8 with normal white count. So, she was started on antibiotics treatment and Infectious Disease consultation was requested for further evaluation and management. PAST MEDICAL HISTORY: Significant for human immunodeficiency virus since 2013, stopped treatment in 2015 and head trauma. PAST SURGICAL HISTORY: Not on record. MEDICATIONS: She received cefepime in the emergency room. For the rest of her medications, please refer to [facility]. ALLERGIES: No known drug allergy. SOCIAL HISTORY: The patient lives at home by herself. Denied using any drugs, tobacco, or alcohol currently. REVIEW OF SYSTEMS: A 14-point of system reviewed were all negative apart from the one I mentioned above in my History and Physical. PHYSICAL EXAMINATION: VITAL SIGNS: Temperature 98.5, down from 102.8. GENERAL: A middle-aged female, lying in bed, awake, alert, coughing, not in acute distress. HEENT: Normocephalic and atraumatic. Pupils reactive to light equally. Moist oral mucosa. No exudate. No thrush. NECK: Supple. No lymphadenopathy. CARDIOVASCULAR: Regular rate and rhythm. No murmur. LUNGS: She has wheezing diffusely with diminished breathing sounds at the bases. No rhonchi. ABDOMEN: Soft, nontender, and nondistended. Normal bowel sounds. No hepatosplenomegaly or ascites. EXTREMITY: No edema or cyanosis. SKIN: No rash. No hives. LABORATORY DATA: Laboratory showed white count of 5.2,, hemoglobin of 8.9, and platelet count of 255,00. BUN of 6 and creatinine of 0.7. Urinalysis, positive for infection with +3 leukocyte esterase and many bacteria. MICROBIOLOGY: Urine culture is growing gram-negative bacillus. IMAGING: Chest x-ray showed no acute findings. ASSESSMENT AND RECOMMENDATION: 1. Sepsis, unclear source at this point. We will send blood culture and start vancomycin with cefepime empiric coverage. We will add Zithromax to cover for possible atypical pneumonia since she is immunocompromised. 2. Urinary tract infection. We will start cefepime pending urine culture. 3. Fever due to the above. Continue antibiotics and Tylenol as needed. 4. Human immunodeficiency virus. The patient has not been on treatment since 2016 thinking that she does not have it. We will confirm with viral load and CD4 count to assess her compliance and we will screen for syphilis since she is homeless and we will order Chlamydia and gonorrhea test. Thank you for the consult. ID will continue to follow. Vesta Dunn M.D. DR: SEDA JOB#: [id number] CC:
[2017-12-14] VITALS: BP 131/73
--- NOTE | 2017-12-14 03:15 | Consultation ---
DATE OF CONSULTATION: 12/13/2017 CONSULTING PHYSICIAN: Ander Gallardo M.D. REFERRING PHYSICIAN: Dr. Padmini Jeffery. REASON FOR CONSULTATION: Management of tachycardia. HISTORY OF PRESENT ILLNESS: The patient is a very unfortunate 47-year-old lady who presents to the hospital with complaints of fever, chills, weakness, myalgias, and arthralgias. She was having similar symptoms just about a week ago and was taken to [facility]. She stayed there for about a couple of days and was discharged home. At the time of arrival to the hospital, vital signs revealed blood pressure 133/65 mmHg, heart rate of 121, O2 saturation 95% on room air. She was admitted to telemetry for further evaluation and management of possible sepsis. Cardiology consultation was made to assess and evaluate tachycardia. At the time of arrival to the hospital, a 12-lead electrocardiogram revealed sinus tachycardia, rate of [address] and T-wave abnormalities and normal QT interval. PAST MEDICAL HISTORY: 1. HIV disease/AIDS. 2. CMV. 3. Noncompliance with medication. SOCIAL HISTORY: She is apparently homeless. Currently lives with her who is depressed. She has a report of alcohol use, but denies any tobacco or illicit drug use. PAST SURGICAL HISTORY: None. MEDICATIONS: List of medication, Tivicay 50 mg p.o. daily, Truvada 200-300 one tablet by mouth daily, Truform compression stockings. The patient although despite the above medication claims that she does not take any HIV medications. REVIEW OF SYSTEMS: A 12-system review done, essentially negative except what is mentioned in the history of present illness. PHYSICAL EXAMINATION: VITAL SIGNS: Blood pressure was 133/65, respirations of 16, pulse of 121, temperature 102.8 degrees Fahrenheit, and O2 saturation 95% on room air. GENERAL: The patient is a very cachectic 47-year-old female, chronically ill. No apparent respiratory distress. Alert and oriented x4. HEENT: Atraumatic and normocephalic. Anicteric. Pupils are equal, round, and reactive to light and accommodation. Bitemporal wasting. Conjunctival pallor. NECK: JVP less than 5 cm. No carotid bruits. Carotid upstrokes 2+ bilaterally. CARDIOVASCULAR: Normal S1 and S2. Tachycardic. No murmurs, gallops, or rubs. LUNGS: Clear to auscultation bilaterally. ABDOMEN: Soft, nontender, and nondistended. No hepatosplenomegaly. Positive bowel sounds. EXTREMITIES: No evidence of edema, clubbing, or cyanosis. LABORATORY FINDINGS: WBC 7.2, hemoglobin of 6.0, hematocrit of 19.5, and platelet count is 287, low indices. Sodium is 136, potassium is 2.6, chloride 99, bicarbonate 28, BUN of 5, creatinine 1.0, glucose is 90, ProBNP was 179, albumin is 2.4, and INR is 1.1. Chest x-ray shows no acute cardiopulmonary disease. A 12-lead electrocardiogram shows sinus tachycardia, rate of 112, no ST and T-wave abnormalities. ASSESSMENT AND PLAN: The patient is a very unfortunate 47-year-old female, seen in Cardiology consultation at the request of Dr. Jeffery. 1. Sinus tachycardia. This is most likely secondary to intravascular volume depletion. There is presence of contraction alkalosis. Also clinically, the patient appears to be hypovolemic. 1.1. We will replace electrolytes and administer hydration, mainly D5NS. 1.2. Continue monitoring chemistry in the next few days. 2. HIV/AIDS. 3. Hypokalemia, potassium supplements were ordered. 4. Protein-calorie malnutrition. 5. History of CMV. 6. Dysphagia, possibly [place] esophagitis. I will recommend gastrointestinal consultation for possible endoscopy. I would like to thank Dr. Jeffery for the courtesy of this consultation. Ander Gallardo M.D. DR: TALITA JOB#: [id number] CC:
[2017-12-14 04:00] VITALS: BP 110/76
[2017-12-14 08:00] VITALS: BP 109/77
[2017-12-14] MEDS: Pantoprazole Inj IVP SCH (08:42)
[2017-12-14] MEDS: Azithromycin 250mg tab ORAL SCH (08:42)
[2017-12-14] MEDS: Cefepime HCl 2 GM in D5W 110 ML IVPB SCH ×2 (08:42→20:35)
--- NOTE | 2017-12-14 08:45 | Consultation ---
DATE OF CONSULTATION: 12/13/2017 HEMATOLOGY/ONCOLOGY CONSULTATION CONSULTING PHYSICIAN: Selvin Mahmood M.D. REQUESTING PHYSICIAN: Padmini Jeffery M.D. REASON FOR CONSULTATION: Management of anemia. IDENTIFYING DATA: Dear Dr. Jeffery, The patient is a pleasant 47-year-old female with history of HIV since 2013, stopped treatment of anti-retroviral therapy for two years, who at this time presents to [facility] with fevers, malaise, weakness, failure to thrive. She is noted to have a fever. Chest x-ray showed no acute infiltrate. Normal white count. Temperature elevated at this time to 102.8. Started her on antibiotics. Hematology Service was consulted for further evaluation and treatment. PAST MEDICAL HISTORY: HIV/AIDS, stopped treatment in 2015. SURGICAL HISTORY: None noted. MEDICATIONS: Reviewed. SOCIAL HISTORY: Lives at home. No alcohol, tobacco, or illicit drug use. REVIEW OF SYSTEMS: CONSTITUTIONAL: No fevers, chills, or night sweats. SKIN: No rashes, bumps, or itching. HEENT: No headache, hearing or vision changes. BREASTS: No lumps, pain, or discharge. PULMONARY: No cough, sputum, or shortness of breath. GASTROINTESTINAL: No nausea, vomiting, or diarrhea. GENITOURINARY: No dysuria, frequency, or urgency. MUSCULOSKELETAL: No muscle pain, joint swelling, or trauma. PHYSICAL EXAMINATION: VITAL SIGNS: Reviewed. GENERAL: No acute distress. PULMONARY: Decreased breath sounds. CARDIOVASCULAR: Regular rate. No S3 or S4. ABDOMEN: Soft, nontender, and nondistended. EXTREMITIES: A 1+ edema. LABORATORY DATA: , hemoglobin 8.9, hematocrit , and platelet count . ASSESSMENT AND RECOMMENDATIONS: 1. 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 Obtain anemia workup. 2. . 3. Leukocytosis, history of UTI . 4. HIV/AIDS. She has been off of treatment. Further monitor with ID Service. due to above. On antibiotics. Tylenol as needed. Selvin Mahmood M.D. DR: EMEKA JOB#: [id number] CC:
[2017-12-14 08:59] LABS: HEMATOCRIT 27.3 % (37.0-47.0); HEMOGLOBIN 8.5 G/DL (12.0-16.0); MEAN CORPUSCULAR VOLUME 90 FL (80-99); PLATELET COUNT 272 K/UL (150-450); RED BLOOD COUNT 3.05 M/UL (4.20-5.40); RED CELL DISTRIBUTION WIDTH 17.2 % (11.6-14.8); WHITE BLOOD COUNT 2.3 K/UL (4.8-10.8)
[2017-12-14 09:22] LABS: ALANINE AMINOTRANSFERASE 12 U/L (12-78); ALBUMIN/GLOBULIN RATIO 0.4 (1.0-2.7); ALKALINE PHOSPHATASE 58 U/L (46-116); ANION GAP 9 mmol/L (5-15); ASPARTATE AMINO TRANSFERASE 17 U/L (15-37); BILIRUBIN,TOTAL 0.2 MG/DL (0.2-1.0); BLOOD UREA NITROGEN 7 mg/dL (7-18); CALCIUM 8.4 MG/DL (8.5-10.1); CARBON DIOXIDE 24 MMOL/L (21-32); CHLORIDE 107 MMOL/L (98-107); CREATININE 0.9 MG/DL (0.55-1.30); POTASSIUM 3.4 MMOL/L (3.5-5.1); SODIUM 140 MMOL/L (136-145)
[2017-12-14 09:37] LABS: FERRITIN 1102 NG/ML (8-388); LACTATE DEHYDROGENASE 161 U/L (81-234)
[2017-12-14 09:43] LABS: % IRON SATURATION 33 % (15-50); IRON 45 ug/dL (50-175); TOTAL IRON BINDING CAPACITY 138 ug/dL (250-450)
[2017-12-14] MEDS ORDERED: Vancomycin 1gm/D5W 275ml IVPB SCH ×2 (10:00)
--- NOTE | 2017-12-14 11:12 | General Progress Note ---
Assessment/Plan Assessment/Plan patient is seen and examined. Dictation in progress Subjective Allergies: Coded Allergies: No Known Allergies (Unverified , 12/12/17) Objective Last 24 Hour Vital Signs Date Time Temp Pulse Resp B/P (MAP) Pulse Ox O2 Delivery O2 Flow Rate FiO2 12/14/17 04:00 98.1 77 18 110/76 (87) 100 98.1 12/14/17 04:00 84 12/14/17 00:00 98.4 84 18 131/73 (92) 100 98.4 12/14/17 00:00 80 12/13/17 21:00 Room Air 12/13/17 20:00 98.7 79 19 109/72 (84) 100 98.7 12/13/17 20:00 83 12/13/17 16:03 98.5 82 18 100/63 (75) 100 98.5 12/13/17 16:00 94 12/13/17 12:03 98.2 83 18 110/70 (83) 100 98.2 12/13/17 12:00 73 Intake and Output 12/13/17 12/14/17 19:00 07:00 Intake Total 1030 ml Balance 1030 ml Intake Oral 120 ml IV Total 910 ml # Voids 3 3 # Bowel Movements 4 Laboratory Tests 12/14/17 07:10: White Blood Count 2.3#L, Red Blood Count 3.05L, Hemoglobin 8.5L, Hematocrit 27.3L, Mean Corpuscular Volume 90, Mean Corpuscular Hemoglobin 27.9, Mean Corpuscular Hemoglobin Concent 31.1L, Red Cell Distribution Width 17.2H, Platelet Count 272, Mean Platelet Volume 6.5, Neutrophils (%) (Auto) , Lymphocytes (%) (Auto) , Monocytes (%) (Auto) , Eosinophils (%) (Auto) , Basophils (%) (Auto) , Neutrophils % (Manual) [Pending], Lymphocytes % (Manual) [Pending], Platelet Estimate [Pending], Platelet Morphology [Pending], Reticulocyte Count [Pending], Fibrinogen 532H, Sodium Level 140, Potassium Level 3.4L, Chloride Level 107, Carbon Dioxide Level 24, Anion Gap 9, Blood Urea Nitrogen 7, Creatinine 0.9, Estimat Glomerular Filtration Rate > 60, Glucose Level 82, Calcium Level 8.4L, Iron Level 45L, Total Iron Binding Capacity 138L, Percent Iron Saturation 33, Unsaturated Iron Binding 93L, Ferritin 1102H, Total Bilirubin 0.2, Aspartate Amino Transf (AST/SGOT) 17, Alanine Aminotransferase (ALT/SGPT) 12, Alkaline Phosphatase 58, Lactate Dehydrogenase 161, Total Protein 6.9, Albumin 2.0L, Globulin 4.9, Albumin/ Globulin Ratio 0.4L, Folate 6.4L, Thyroid Stimulating Hormone (TSH) 1.413 Height (Feet): 5 Height (Inches): 2.00 Weight (Pounds): 115 Padmini Jeffery MD Dec 14, 2017 11:11
[2017-12-14 12:00] VITALS: BP 122/78
--- NOTE | 2017-12-14 12:43 | General Progress Note ---
Assessment/Plan Status: stable Assessment/Plan #. 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 Poor control of HIV/AIDS, CD4 count of 1 --> Anemia workup has been reviewed, will rend daily --> hgb goal >7 --> 7 Hgb stable at 8.5 --> evaluate for opportunistic infections given low cd4 count #. Leukopenia likely related to underlying hiv/aids, history of UTI --> Pt on antibiotics #. Coagulopathy, elevated ptt --> evaluate with a new ptt/inr #. HIV/AIDS. She has been off of treatment. --> Further monitor with ID Service. Subjective Date patient seen: Dec 14, 2017 ROS Limited/Unobtainable: Yes Hematologic/Lymphatic: Reports: anemia Allergies: Coded Allergies: No Known Allergies (Unverified , 12/12/17) All Systems: reviewed and negative except above Subjective Pt is a/o x3, verbally responsive. No sob. No acute events. Vitals are stable. Objective Last 24 Hour Vital Signs Date Time Temp Pulse Resp B/P (MAP) Pulse Ox O2 Delivery O2 Flow Rate FiO2 12/14/17 04:00 98.1 77 18 110/76 (87) 100 98.1 12/14/17 04:00 84 12/14/17 00:00 98.4 84 18 131/73 (92) 100 98.4 12/14/17 00:00 80 12/13/17 21:00 Room Air 12/13/17 20:00 98.7 79 19 109/72 (84) 100 98.7 12/13/17 20:00 83 12/13/17 16:03 98.5 82 18 100/63 (75) 100 98.5 12/13/17 16:00 94 Intake and Output 12/13/17 12/14/17 19:00 07:00 Intake Total 1030 ml Balance 1030 ml Intake Oral 120 ml IV Total 910 ml # Voids 3 3 # Bowel Movements 4 Laboratory Tests 12/14/17 07:10: White Blood Count 2.3#L, Red Blood Count 3.05L, Hemoglobin 8.5L, Hematocrit 27.3L, Mean Corpuscular Volume 90, Mean Corpuscular Hemoglobin 27.9, Mean Corpuscular Hemoglobin Concent 31.1L, Red Cell Distribution Width 17.2H, Platelet Count 272, Mean Platelet Volume 6.5, Neutrophils (%) (Auto) , Lymphocytes (%) (Auto) , Monocytes (%) (Auto) , Eosinophils (%) (Auto) , Basophils (%) (Auto) , Differential Total Cells Counted 100, Neutrophils % ( Manual) 66, Lymphocytes % (Manual) 21, Monocytes % (Manual) 13H, Eosinophils % ( Manual) 0, Basophils % (Manual) 0, Band Neutrophils 0, Platelet Estimate Adequate, Platelet Morphology Normal, Hypochromasia 2+, Anisocytosis 1+, Reticulocyte Count [Pending], Fibrinogen 532H, Sodium Level 140, Potassium Level 3.4L, Chloride Level 107, Carbon Dioxide Level 24, Anion Gap 9, Blood Urea Nitrogen 7, Creatinine 0.9, Estimat Glomerular Filtration Rate > 60, Glucose Level 82, Calcium Level 8.4L, Iron Level 45L, Total Iron Binding Capacity 138L, Percent Iron Saturation 33, Unsaturated Iron Binding 93L, Ferritin 1102H, Total Bilirubin 0.2, Aspartate Amino Transf (AST/SGOT) 17, Alanine Aminotransferase (ALT/SGPT) 12, Alkaline Phosphatase 58, Lactate Dehydrogenase 161, Total Protein 6.9, Albumin 2.0L, Globulin 4.9, Albumin/ Globulin Ratio 0.4L, Folate 6.4L, Thyroid Stimulating Hormone (TSH) 1.413 Height (Feet): 5 Height (Inches): 2.00 Weight (Pounds): 115 General Appearance: no apparent distress, alert EENT: PERRL/EOMI Neck: normal alignment Cardiovascular: normal peripheral pulses Respiratory/Chest: no respiratory distress Abdomen: non tender Selvin Mahmood MD Dec 14, 2017 12:43
--- NOTE | 2017-12-14 15:19 | Infectious Diseases Prog Note ---
Assessment/Plan Problems: (1) Sepsis Assessment & Plan: with gram negative rods , source suspect UTI , already on cefepime empirically , await final culture. stop vancomycin (2) UTI (urinary tract infection) Assessment & Plan: with pansensitive E coli , continue cefepime pending final blood culture (3) Fever Assessment & Plan: due to the above , improving , continue antibiotics , and tylenol (4) HIV (human immunodeficiency virus infection) Assessment & Plan: with AIDS, not on any treatment since 2016, await viral load , CD4 is 1 , screening for syphilis is negative , screening for chlamydia and gonorrhoea is pending . D/W son and patiet the need to establish care with HIV provider so she can start ART as soon as possible . Subjective Constitutional: Reports: fatigue, anorexia HEENT: Reports: no symptoms Respiratory: Reports: productive cough Breasts: Reports: no symptoms Cardiovascular: Reports: no symptoms Gastrointestinal/Abdominal: Reports: bloating Genitourinary: Reports: no symptoms Neurologic: Reports: headache, weakness Psychiatric: Reports: depression Skin: Reports: no symptoms Endocrine: Reports: no symptoms Hematologic: Reports: no symptoms Musculoskeletal: Reports: no symptoms Allergies: Coded Allergies: No Known Allergies (Unverified , 12/12/17) Objective Vital Signs Last 24 Hour Vital Signs Date Time Temp Pulse Resp B/P (MAP) Pulse Ox O2 Delivery O2 Flow Rate FiO2 12/14/17 12:00 97.0 74 18 122/78 (93) 100 97.0 12/14/17 09:00 Room Air 12/14/17 08:00 97.3 78 18 109/77 (88) 100 97.3 12/14/17 04:00 98.1 77 18 110/76 (87) 100 98.1 12/14/17 04:00 84 12/14/17 00:00 98.4 84 18 131/73 (92) 100 98.4 12/14/17 00:00 80 12/13/17 21:00 Room Air 12/13/17 20:00 98.7 79 19 109/72 (84) 100 98.7 12/13/17 20:00 83 12/13/17 16:03 98.5 82 18 100/63 (75) 100 98.5 12/13/17 16:00 94 Height (Feet): 5 Height (Inches): 2.00 Weight (Pounds): 115 General Appearance: WD/WN, no acute distress, cachetic HEENT: normocephalic, atraumatic, anicteric, mucous membranes moist Respiratory/Chest: chest wall non-tender, no respiratory distress, no accessory muscle use, decreased breath sounds, crackles/rales Cardiovascular: normal peripheral pulses, normal rate, regular rhythm, no JVD Abdomen: normal bowel sounds, soft, non tender, no organomegaly, non distended , no mass, no scars Extremities: no cyanosis, no clubbing Skin: no rash, no lesions, no ulcers Neurologic/Psychiatric: alert, oriented x 3 Microbiology Date/Time Source Procedure Growth Status 12/12/17 20:40 Blood Blood Culture - Preliminary Resulted 12/12/17 20:25 Blood Blood Culture - Preliminary Resulted 12/12/17 22:22 Nasal Nares MRSA Culture - Final NO METHICILLIN RESISTANT STAPH AUREUS... Complete 12/12/17 20:40 Urine,Clean Catch Urine Culture - Final Escherichia Coli Complete Laboratory Tests Test 12/14/17 07:10 White Blood Count 2.3 K/UL (4.8-10.8) #L Red Blood Count 3.05 M/UL (4.20-5.40) L Hemoglobin 8.5 G/DL (12.0-16.0) L Hematocrit 27.3 % (37.0-47.0) L Mean Corpuscular Volume 90 FL (80-99) Mean Corpuscular Hemoglobin 27.9 PG (27.0-31.0) Mean Corpuscular Hemoglobin Concent 31.1 G/DL (32.0-36.0) L Red Cell Distribution Width 17.2 % (11.6-14.8) H Platelet Count 272 K/UL (150-450) Mean Platelet Volume 6.5 FL (6.5-10.1) Neutrophils (%) (Auto) % (45.0-75.0) Lymphocytes (%) (Auto) % (20.0-45.0) Monocytes (%) (Auto) % (1.0-10.0) Eosinophils (%) (Auto) % (0.0-3.0) Basophils (%) (Auto) % (0.0-2.0) Differential Total Cells Counted 100 Neutrophils % (Manual) 66 % (45-75) Lymphocytes % (Manual) 21 % (20-45) Monocytes % (Manual) 13 % (1-10) H Eosinophils % (Manual) 0 % (0-3) Basophils % (Manual) 0 % (0-2) Band Neutrophils 0 % (0-8) Platelet Estimate Adequate Platelet Morphology Normal Hypochromasia 2+ Anisocytosis 1+ Reticulocyte Count 1.3 % (0.0-2.0) Fibrinogen 532 mg/dL (200-400) H Sodium Level 140 MMOL/L (136-145) Potassium Level 3.4 MMOL/L (3.5-5.1) L Chloride Level 107 MMOL/L (98-107) Carbon Dioxide Level 24 MMOL/L (21-32) Anion Gap 9 mmol/L (5-15) Blood Urea Nitrogen 7 mg/dL (7-18) Creatinine 0.9 MG/DL (0.55-1.30) Estimat Glomerular Filtration Rate > 60 mL/min (>60) Glucose Level 82 MG/DL (74-106) Calcium Level 8.4 MG/DL (8.5-10.1) L Iron Level 45 ug/dL (50-175) L Total Iron Binding Capacity 138 ug/dL (250-450) L Percent Iron Saturation 33 % (15-50) Unsaturated Iron Binding 93 ug/dL (112-346) L Ferritin 1102 NG/ML (8-388) H Total Bilirubin 0.2 MG/DL (0.2-1.0) Aspartate Amino Transf (AST/SGOT) 17 U/L (15-37) Alanine Aminotransferase (ALT/SGPT) 12 U/L (12-78) Alkaline Phosphatase 58 U/L (46-116) Lactate Dehydrogenase 161 U/L (81-234) Total Protein 6.9 G/DL (6.4-8.2) Albumin 2.0 G/DL (3.4-5.0) L Globulin 4.9 g/dL Albumin/Globulin Ratio 0.4 (1.0-2.7) L Folate 6.4 NG/ML (8.6-58.9) L Thyroid Stimulating Hormone (TSH) 1.413 uiU/mL (0.358-3.740) Current Medications Medications (Trade) Dose Ordered Sig/Thierno Route PRN Reason Start Time Stop Time Status Last Admin Dose Admin Acetaminophen (Tylenol) 650 mg Q6H PRN ORAL Mild Pain/Temp > 100.5 12/13/17 07:00 01/12/18 06:59 Azithromycin (Zithromax) 250 mg DAILY ORAL 12/13/17 09:00 12/20/17 08:59 12/14/17 08:42 Cefepime HCl 2 gm/ Dextrose 110 ml @ 220 mls/hr EVERY 12 HOURS IVPB 12/13/17 09:00 12/20/17 08:59 12/14/17 08:42 Dextrose 1,000 ml @ 100 mls/hr Q10H IV 12/13/17 08:45 01/12/18 08:44 12/14/17 04:45 Lorazepam (Ativan) 2 mg Q6H PRN ORAL For Anxiety 12/13/17 12:00 12/20/17 11:59 Pantoprazole (Protonix) 40 mg DAILY IVP 12/13/17 09:00 01/12/18 08:59 12/14/17 08:42 Risperidone (RisperDAL) 2 mg BEDTIME ORAL 12/13/17 21:00 01/12/18 20:59 Vancomycin HCl (Vanco rx to dose) 1 ea DAILY PRN MISC Per rx protocol 12/13/17 07:45 01/12/18 07:44 Vancomycin HCl 1 gm/Dextrose 275 ml @ 183.708 mls/hr Q24H IVPB 12/14/17 10:00 12/19/17 09:59 12/14/17 10:20 Vesta Dunn M.D. Dec 14, 2017 15:19
[2017-12-14 16:00] VITALS: BP 141/92
--- NOTE | 2017-12-14 19:45 | History and Physical Report ---
DATE OF ADMISSION: 12/12/2017 SOURCE OF INFORMATION: The patient and EMR. HISTORY OF PRESENT ILLNESS: The patient is a 47-year-old female with history of HIV, who presented to the hospital after passing out. She was transferred through the 911 call. At the time of initial evaluation, the patient was found to be markedly anemic. The patient received blood transfusion and was transferred to the floor. PAST MEDICAL HISTORY: HIV, otherwise denies. MEDICATIONS: Current hospital medications including, but not limited to Risperdal, potassium supplements, cefepime, and D5W. ALLERGIES: NKDA. SOCIAL HISTORY: The patient denies history of illicit drug abuse, smoking, or alcohol abuse. FAMILY HISTORY: Reviewed and noncontributory. PHYSICAL EXAMINATION: VITAL SIGNS: Blood pressure 105/80, temperature 98.2 degrees, pulse oximetry 98% on room air, respiratory rate 18, and temperature 98.2 degrees. GENERAL: The patient is cachectic. HEAD AND NECK: Atraumatic and normocephalic. CHEST: Clear to auscultation. HEART: S1 and S2. Regular rate and rhythm. ABDOMEN: Soft. LABORATORY DATA: Labs dated 12/12/2017 shows WBC 7.2, hemoglobin of 6, and platelets of 286,000. Sodium 142, potassium 3.3, BUN 6, and creatinine 0.7. Lactic acid of 2.5. UA is positive for 3+ for bacteria. ASSESSMENT: 1. Sepsis, source unknown. 2. Human immunodeficiency virus. 3. Anemia. 4. Hypokalemia. 5. Gastrointestinal and deep vein thrombosis prophylaxes. PLAN OF CARE: Agree with the telemetry admission. We will start the empiric antibiotic treatment. Infectious Disease, Nephrology, and Oncology have been consulted. COMMENTS: This dictation has been done at the time of admission on 12/12/2017. The original dictation cannot be found. Therefore, this duplicate dictation is provided. Padmini Jeffery M.D. DR: Sanchez JOB#: [id number] CC:
[2017-12-14 20:00] VITALS: BP 128/86
[2017-12-15] VITALS: BP 123/87
[2017-12-15 04:00] VITALS: BP 125/84
[2017-12-15 08:00] VITALS: BP 110/68
[2017-12-15] MEDS: Pantoprazole Inj IVP SCH (08:57)
[2017-12-15] MEDS: Cefepime HCl 2 GM in D5W 110 ML IVPB SCH (08:58)
[2017-12-15] MEDS: Azithromycin 250mg tab ORAL SCH (08:59)
--- NOTE | 2017-12-15 11:02 | General Progress Note ---
Assessment/Plan Status: stable Assessment/Plan #. 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 Poor control of HIV/AIDS, CD4 count of 1 --> Anemia workup has been reviewed, will rend daily --> hgb goal >7 --> closely monitor for improvement --> evaluate for opportunistic infections given low cd4 count #. Leukopenia likely related to underlying hiv/aids, history of UTI --> Pt on antibiotics #. Coagulopathy, elevated ptt --> evaluate with a new ptt/inr #. HIV/AIDS. She has been off of treatment. --> Further monitor with ID Service. The time the note was entered does not necessarily correspond to the time the patient was seen. Subjective Date patient seen: Dec 15, 2017 Hematologic/Lymphatic: Reports: anemia Allergies: Coded Allergies: No Known Allergies (Unverified , 12/12/17) All Systems: reviewed and negative except above Subjective No acute events. Vitals are stable. Objective Last 24 Hour Vital Signs Date Time Temp Pulse Resp B/P (MAP) Pulse Ox O2 Delivery O2 Flow Rate FiO2 12/15/17 09:00 Room Air 12/15/17 08:00 98.1 86 20 110/68 (82) 100 98.1 12/15/17 05:28 99.0 12/15/17 04:00 99.0 89 20 125/84 (98) 100 99.0 12/15/17 04:00 76 12/15/17 00:00 74 12/15/17 00:00 99.3 80 20 123/87 (99) 100 99.3 12/14/17 21:00 Room Air 12/14/17 20:00 100.0 84 20 128/86 (100) 100 100.0 12/14/17 20:00 74 12/14/17 16:00 75 12/14/17 16:00 97.2 70 18 141/92 (108) 100 97.2 12/14/17 12:00 92 12/14/17 12:00 97.0 74 18 122/78 (93) 100 97.0 Intake and Output 12/14/17 12/15/17 19:00 07:00 Intake Total 970 ml 1770 ml Balance 970 ml 1770 ml Intake Oral 960 ml 450 ml IV Total 10 ml 1320 ml # Voids 3 # Bowel Movements 4 Height (Feet): 5 Height (Inches): 2.00 Weight (Pounds): 115 General Appearance: no apparent distress, alert EENT: PERRL/EOMI Neck: normal alignment, supple Cardiovascular: normal peripheral pulses, normal rate, regular rhythm Respiratory/Chest: normal breath sounds, no respiratory distress Abdomen: soft Selvin Mahmood MD Dec 15, 2017 11:02
[2017-12-15 12:00] VITALS: BP 140/82
--- NOTE | 2017-12-15 12:10 | Cardiology Progress Note ---
Assessment/Plan Assessment/Plan 1. Sinus tachycardia, likely secondary to intravascular volume depletion, resolved, continue hydration. 2. HIV/AIDS with low CD4 counts. 3. Hypokalemia, will replace potassium. 4. Protein-calorie malnutrition. 5. History of CMV. 6. Dysphagia, possibly [place] esophagitis. Subjective Subjective Sinus rhythm at 86. Objective Last 24 Hour Vital Signs Date Time Temp Pulse Resp B/P (MAP) Pulse Ox O2 Delivery O2 Flow Rate FiO2 12/15/17 09:00 Room Air 12/15/17 08:00 98.1 86 20 110/68 (82) 100 98.1 12/15/17 05:28 99.0 12/15/17 04:00 99.0 89 20 125/84 (98) 100 99.0 12/15/17 04:00 76 12/15/17 00:00 74 12/15/17 00:00 99.3 80 20 123/87 (99) 100 99.3 12/14/17 21:00 Room Air 12/14/17 20:00 100.0 84 20 128/86 (100) 100 100.0 12/14/17 20:00 74 12/14/17 16:00 75 12/14/17 16:00 97.2 70 18 141/92 (108) 100 97.2 Intake and Output 12/14/17 12/15/17 19:00 07:00 Intake Total 970 ml 1770 ml Balance 970 ml 1770 ml Intake Oral 960 ml 450 ml IV Total 10 ml 1320 ml # Voids 3 # Bowel Movements 4 Microbiology Date/Time Source Procedure Growth Status 12/12/17 20:40 Blood Blood Culture - Preliminary Gram Negative Bacillus 1 Resulted 12/12/17 20:25 Blood Blood Culture - Preliminary Gram Negative Bacillus 1 Resulted 12/12/17 22:22 Nasal Nares MRSA Culture - Final NO METHICILLIN RESISTANT STAPH AUREUS... Complete 12/12/17 20:40 Urine,Clean Catch Urine Culture - Final Escherichia Coli Complete 12/12/17 22:22 Rectum VRE Culture - Final NO VANCOMYCIN RESISTANT ENTEROCOCCUS ... Complete 12/12/17 22:22 Rectum - Final NO CARBAPENEM-RESISTANT ENTEROBACTERI... Complete Objective HEENT: Atraumatic and normocephalic. Anicteric. Pupils are equal, round, and reactive to light and accommodation. Bitemporal wasting. Conjunctival pallor. NECK: JVP less than 5 cm. No carotid bruits. Carotid upstrokes 2+ bilaterally. CARDIOVASCULAR: Normal S1 and S2. Tachycardic. No murmurs, gallops, or rubs. LUNGS: Clear to auscultation bilaterally. ABDOMEN: Soft, nontender, and nondistended. No hepatosplenomegaly. Positive bowel sounds. EXTREMITIES: No evidence of edema, clubbing, or cyanosis. Ander Gallardo MD Dec 15, 2017 12:09
--- NOTE | 2017-12-15 13:09 | General Progress Note ---
Assessment/Plan Assessment/Plan S: I want to go home O: Lack of insight . Appears comfortable. PHYSICAL EXAMINATION:GENERAL: The patient is cachectic. HEAD AND NECK: Atraumatic and normocephalic. CHEST: Clear to auscultation. HEART: S1 and S2. Regular rate and rhythm. ABDOMEN: Soft. meds: Reviewed and reconciled including Cefepim ASSESSMENT: 1. Sepsis, source unknown. 2. Human immunodeficiency virus. 3. Anemia. 4. Hypokalemia. 5. Gastrointestinal and deep vein thrombosis prophylaxes. 6. Refusal of care: Refusing IV line PLAN OF CARE: Current psych management Ok to Transfer to Med surge Ok to change the Meds to PO Subjective Allergies: Coded Allergies: No Known Allergies (Unverified , 12/12/17) Objective Last 24 Hour Vital Signs Date Time Temp Pulse Resp B/P (MAP) Pulse Ox O2 Delivery O2 Flow Rate FiO2 12/15/17 09:00 Room Air 12/15/17 08:00 98.1 86 20 110/68 (82) 100 98.1 12/15/17 05:28 99.0 12/15/17 04:00 99.0 89 20 125/84 (98) 100 99.0 12/15/17 04:00 76 12/15/17 00:00 74 12/15/17 00:00 99.3 80 20 123/87 (99) 100 99.3 12/14/17 21:00 Room Air 12/14/17 20:00 100.0 84 20 128/86 (100) 100 100.0 12/14/17 20:00 74 12/14/17 16:00 75 12/14/17 16:00 97.2 70 18 141/92 (108) 100 97.2 Intake and Output 12/14/17 12/15/17 19:00 07:00 Intake Total 970 ml 1770 ml Balance 970 ml 1770 ml Intake Oral 960 ml 450 ml IV Total 10 ml 1320 ml # Voids 3 # Bowel Movements 4 Height (Feet): 5 Height (Inches): 2.00 Weight (Pounds): 115 Padmini Jeffery MD Dec 15, 2017 13:09
--- NOTE | 2017-12-15 14:48 | Infectious Diseases Prog Note ---
Assessment/Plan Problems: (1) Sepsis Assessment & Plan: with gram negative rods , source suspect UTI , already on cefepime empirically , will switch to ceftriaxon IM pending final culture. stop cefepime (2) UTI (urinary tract infection) Assessment & Plan: with pansensitive E coli , continue cefepime pending final blood culture (3) Fever Assessment & Plan: due to the above , improving , continue antibiotics , and tylenol (4) HIV (human immunodeficiency virus infection) Assessment & Plan: with AIDS, not on any treatment since 2016, await viral load , CD4 is 1 , screening for syphilis is negative , screening for chlamydia and gonorrhoea is pending . D/W son and patiet the need to establish care with HIV provider so she can start ART as soon as possible . prognosis is poor . Subjective Constitutional: Reports: fatigue HEENT: Reports: no symptoms Respiratory: Reports: no symptoms Breasts: Reports: no symptoms Cardiovascular: Reports: no symptoms Gastrointestinal/Abdominal: Reports: no symptoms Genitourinary: Reports: no symptoms Neurologic: Reports: weakness, confusion Psychiatric: Reports: anxiety Skin: Reports: no symptoms Endocrine: Reports: no symptoms Hematologic: Reports: no symptoms Musculoskeletal: Reports: no symptoms Allergies: Coded Allergies: No Known Allergies (Unverified , 12/12/17) Objective Vital Signs Last 24 Hour Vital Signs Date Time Temp Pulse Resp B/P (MAP) Pulse Ox O2 Delivery O2 Flow Rate FiO2 12/15/17 12:00 97.9 89 20 140/82 (101) 100 97.9 12/15/17 12:00 79 12/15/17 09:00 Room Air 12/15/17 08:00 98.1 86 20 110/68 (82) 100 98.1 12/15/17 08:00 87 12/15/17 05:28 99.0 12/15/17 04:00 99.0 89 20 125/84 (98) 100 99.0 12/15/17 04:00 76 12/15/17 00:00 74 12/15/17 00:00 99.3 80 20 123/87 (99) 100 99.3 12/14/17 21:00 Room Air 12/14/17 20:00 100.0 84 20 128/86 (100) 100 100.0 12/14/17 20:00 74 7/7/18 16:00 75 12/14/17 16:00 97.2 70 18 141/92 (108) 100 97.2 Height (Feet): 5 Height (Inches): 2.00 Weight (Pounds): 115 General Appearance: WD/WN, no acute distress HEENT: normocephalic, atraumatic, anicteric, mucous membranes moist Respiratory/Chest: chest wall non-tender, normal breath sounds, no respiratory distress, no accessory muscle use, decreased breath sounds Cardiovascular: normal peripheral pulses, normal rate, regular rhythm, no gallop/murmur, no JVD Abdomen: normal bowel sounds, soft, non tender, no organomegaly, non distended , no mass, no scars Extremities: no cyanosis, no clubbing Skin: no rash, no lesions, no ulcers Neurologic/Psychiatric: alert, oriented x 3 Microbiology Date/Time Source Procedure Growth Status 12/12/17 20:40 Blood Blood Culture - Preliminary Gram Negative Bacillus 1 Resulted 12/12/17 20:25 Blood Blood Culture - Preliminary Gram Negative Bacillus 1 Resulted 12/12/17 22:22 Nasal Nares MRSA Culture - Final NO METHICILLIN RESISTANT STAPH AUREUS... Complete 12/12/17 20:40 Urine,Clean Catch Urine Culture - Final Escherichia Coli Complete 12/12/17 22:22 Rectum VRE Culture - Final NO VANCOMYCIN RESISTANT ENTEROCOCCUS ... Complete 12/12/17 22:22 Rectum - Final NO CARBAPENEM-RESISTANT ENTEROBACTERI... Complete Current Medications Medications (Trade) Dose Ordered Sig/Thierno Route PRN Reason Start Time Stop Time Status Last Admin Dose Admin Acetaminophen (Tylenol) 650 mg Q6H PRN ORAL Mild Pain/Temp > 100.5 12/13/17 07:00 01/12/18 06:59 12/15/17 05:28 Azithromycin (Zithromax) 250 mg DAILY ORAL 12/13/17 09:00 12/20/17 08:59 12/15/17 08:59 Cefepime HCl 2 gm/ Dextrose 110 ml @ 220 mls/hr EVERY 12 HOURS IVPB 12/13/17 09:00 12/20/17 08:59 12/15/17 08:58 Lorazepam (Ativan) 2 mg Q6H PRN ORAL For Anxiety 12/13/17 12:00 12/20/17 11:59 12/15/17 10:36 Pantoprazole (Protonix) 40 mg DAILY IVP 12/13/17 09:00 01/12/18 08:59 12/15/17 08:57 Risperidone (RisperDAL) 2 mg BEDTIME ORAL 12/13/17 21:00 01/12/18 20:59 12/14/17 20:35 Vesta Dunn M.D. Dec 15, 2017 14:48
[2017-12-15 16:00] VITALS: BP 119/80
[2017-12-15] MEDS ORDERED: LORazepam 1mg tab ORAL PRN (17:00)
[2017-12-15 20:00] VITALS: BP 128/87
[2017-12-16 00:52] VITALS: BP 116/74
[2017-12-16 04:12] VITALS: BP 128/88
[2017-12-16 07:38] LABS: HEMOGLOBIN 9.3 G/DL (12.0-16.0); MEAN CORPUSCULAR VOLUME 90 FL (80-99); PLATELET COUNT 302 K/UL (150-450); RED BLOOD COUNT 3.32 M/UL (4.20-5.40); RED CELL DISTRIBUTION WIDTH 17.5 % (11.6-14.8)
[2017-12-16 07:53] LABS: ALANINE AMINOTRANSFERASE 14 U/L (12-78); ALBUMIN 2.4 G/DL (3.4-5.0); ALBUMIN/GLOBULIN RATIO 0.4 (1.0-2.7); ALKALINE PHOSPHATASE 76 U/L (46-116); ANION GAP 5 mmol/L (5-15); ASPARTATE AMINO TRANSFERASE 16 U/L (15-37); BILIRUBIN,TOTAL 0.2 MG/DL (0.2-1.0); BLOOD UREA NITROGEN 6 mg/dL (7-18); CALCIUM 8.9 MG/DL (8.5-10.1); CARBON DIOXIDE 28 MMOL/L (21-32); CHLORIDE 106 MMOL/L (98-107); CREATININE 0.8 MG/DL (0.55-1.30); SODIUM 139 MMOL/L (136-145)
[2017-12-16 08:00] VITALS: BP 128/74
[2017-12-16] MEDS ORDERED: Azithromycin 250mg tab ORAL SCH (09:00)
[2017-12-16] MEDS ORDERED: Pantoprazole Inj IVP SCH (09:00)
[2017-12-16] MEDS ORDERED: Lidocaine 1% MPF 10mg/ml 5ml INJ SCH ×2 (09:00)
--- NOTE | 2017-12-16 09:45 | History and Physical Report ---
DATE OF ADMISSION: 12/12/2017 SOURCE OF INFORMATION: The patient and EMR. HISTORY OF PRESENT ILLNESS: The patient is a 47-year-old female who was transferred by a bystander, 911 called. Per the patient, she was feeling dizzy, very weak, and was lying down on the street curbside. Denies any nausea or vomiting. Denies any diarrhea or constipation. Positive for fever. Denies any abnormal bleeding. PAST SURGICAL HISTORY: Denies. ALLERGIES: NKDA. FAMILY HISTORY: Reviewed and noncontributory. SOCIAL HISTORY: The patient denies history of illicit drug abuse, smoking, or alcohol abuse. CURRENT HOME MEDICATIONS: Tivicay and Truvada. PAST MEDICAL HISTORY: HIV, otherwise denies. PHYSICAL EXAMINATION: VITAL SIGNS: Blood pressure 120/60, pulse rate 120. Temperature 102, 100, and 102.8. Pulse oximetry 95% on room air. HEAD AND NECK: Atraumatic and normocephalic. CHEST: Clear to auscultation. No wheezes, no crackles. HEART: S1 and S2. Tachycardic. Negative for S3. Negative for S4. ABDOMEN: Soft. No organomegaly. MUSCULOSKELETAL: No gross lateralized motor deficit. NEUROLOGIC: The patient is awake, alert, and oriented x3. LABORATORY DATA: Labs dated December 12, shows WBC 7.2, hemoglobin of 6, platelets of 287,000. Sodium 136, potassium , BUN , creatinine 1. UA is positive for bacteria and wbc. ASSESSMENT: 1. Sepsis. 2. UTI. 3. HIV - status unknown. 4. Hypokalemia. 5. Severe anemia. 6. GI and DVT prophylaxis. PLAN OF CARE: Continue with the electrolyte supplementation. Status post transfusion. We will monitor. Infectious Disease has been consulted. Padmini Jeffery M.D. DR: Brandan JOB#: [id number] CC:
--- NOTE | 2017-12-16 10:51 | Diagnostic Imaging Report ---
Indication: Altered level of consciousness Technique: Contiguous 5 mm thick transaxial imaging of the head obtained in a Siemens Sensation [address] scanner. Soft tissue and bone windows generated. Automatic Exposure Control was utilized. Total Dose length Product (DLP): 1305.[address] Dose Index Volume (CTDIvol): 70.38 mGy Comparison: 12/08/2013 Findings: There is mild prominence of the ventricles, basal cisterns, and cerebral sulci consistent with atrophy. Mild, nonspecific, white matter hypoattenuation is noted throughout the brain consistent with chronic small vessel disease. There is no midline shift, edema, acute hemorrhage, mass effect, or abnormal extra-axial fluid collections. Bones and extra osseous soft tissues are unremarkable. There is mucosal thickening and opacification of a portion of the left ethmoid sinus and left sphenoid sinus. Impression: No acute intracranial bleed, mass effect or edema. Mild atrophy of the brain. Nonspecific white matter hypoattenuation probably due to chronic small vessel disease. Left ethmoid/sphenoid sinusitis The CT scanner at [facility] is accredited by the [employer] and the scans are performed using dose optimization techniques as appropriate to a performed exam including Automatic Exposure control.
[2017-12-16] MEDS: Cephalexin 500mg cap ORAL SCH ×2 (11:02→13:00)
--- NOTE | 2017-12-16 12:19 | General Progress Note ---
Assessment/Plan Assessment/Plan S: I want to go home O: Appears comfortable. PHYSICAL EXAMINATION:GENERAL: The patient is cachectic. HEAD AND NECK: Atraumatic and normocephalic. CHEST: Clear to auscultation. HEART: S1 and S2. Regular rate and rhythm. ABDOMEN: Soft. meds: Reviewed and reconciled including Keflex. ASSESSMENT: 1. Sepsis, source unknown. 2. AIDS 3. Anemia. 4. Hypokalemia. 5. Gastrointestinal and deep vein thrombosis prophylaxes. 6. Refusal of care: Refusing IV line PLAN OF CARE: Once psych cleares I Medically stable to followup as outpatient for AIDS treatment Subjective Allergies: Coded Allergies: No Known Allergies (Unverified , 12/12/17) Objective Last 24 Hour Vital Signs Date Time Temp Pulse Resp B/P (MAP) Pulse Ox O2 Delivery O2 Flow Rate FiO2 12/16/17 08:00 99.2 94 20 128/74 (92) 100 99.2 12/16/17 04:12 97.9 98 18 128/88 (101) 100 97.9 12/16/17 00:52 99.1 97 18 116/74 (88) 97 99.1 12/15/17 22:52 Room Air 12/15/17 20:00 98.3 95 18 128/87 (101) 98 98.3 12/15/17 16:00 99.0 89 20 119/80 (93) 98 99.0 Intake and Output 12/15/17 12/16/17 19:00 07:00 Intake Total 1160 ml 240 ml Balance 1160 ml 240 ml Intake Oral 1160 ml 240 ml # Voids 5 3 # Bowel Movements 1 Laboratory Tests 12/15/17 19:44: Stool Occult Blood Negative 12/15/17 21:30: Chlamydia trachomatis RNA [Pending] 12/16/17 06:25: White Blood Count 3.0L, Red Blood Count 3.32L, Hemoglobin 9.3L, Hematocrit 30.0L , Mean Corpuscular Volume 90, Mean Corpuscular Hemoglobin 28.1, Mean Corpuscular Hemoglobin Concent 31.0L, Red Cell Distribution Width 17.5H, Platelet Count 302, Mean Platelet Volume 6.6, Neutrophils (%) (Auto) , Lymphocytes (%) (Auto) , Monocytes (%) (Auto) , Eosinophils (%) (Auto) , Basophils (%) (Auto) , Differential Total Cells Counted 100, Neutrophils % ( Manual) 69, Lymphocytes % (Manual) 15L, Monocytes % (Manual) 16H, Eosinophils % (Manual) 0, Basophils % (Manual) 0, Band Neutrophils 0, Platelet Estimate Adequate, Platelet Morphology Normal, Hypochromasia 1+, Anisocytosis 1+, Microcytosis 1+, Ovalocytes 1+, Sodium Level 139, Potassium Level 4.0, Chloride Level 106, Carbon Dioxide Level 28, Anion Gap 5, Blood Urea Nitrogen 6L, Creatinine 0.8, Estimat Glomerular Filtration Rate > 60, Glucose Level 89, Calcium Level 8.9, Total Bilirubin 0.2, Aspartate Amino Transf (AST/SGOT) 16, Alanine Aminotransferase (ALT/SGPT) 14, Alkaline Phosphatase 76, Total Protein 7.8, Albumin 2.4L, Globulin 5.4, Albumin/Globulin Ratio 0.4L Height (Feet): 5 Height (Inches): 2.00 Weight (Pounds): 115 Padmini Jeffery MD Dec 16, 2017 12:19
--- NOTE | 2017-12-16 13:14 | General Progress Note ---
Assessment/Plan Status: stable Assessment/Plan #. 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 Poor control of HIV/AIDS, CD4 count of 1 --> Anemia workup has been reviewed, will rend daily --> hgb goal >7 --> closely monitor for improvement --> evaluate for opportunistic infections given low cd4 count #. Leukopenia likely related to underlying hiv/aids, history of UTI --> Pt on antibiotics #. Coagulopathy, elevated ptt --> evaluate with a new ptt/inr #. HIV/AIDS. She has been off of treatment. --> Further monitor with ID Service. The time the note was entered does not necessarily correspond to the time the patient was seen. Subjective Date patient seen: Dec 16, 2017 Hematologic/Lymphatic: Reports: anemia Allergies: Coded Allergies: No Known Allergies (Unverified , 12/12/17) All Systems: reviewed and negative except above Subjective No acute events. Head CT shows no acute intracranial bleed, mass effect or edema. Objective Last 24 Hour Vital Signs Date Time Temp Pulse Resp B/P (MAP) Pulse Ox O2 Delivery O2 Flow Rate FiO2 12/16/17 08:00 99.2 94 20 128/74 (92) 100 99.2 12/16/17 04:12 97.9 98 18 128/88 (101) 100 97.9 12/16/17 00:52 99.1 97 18 116/74 (88) 97 99.1 12/15/17 22:52 Room Air 12/15/17 20:00 98.3 95 18 128/87 (101) 98 98.3 12/15/17 16:00 99.0 89 20 119/80 (93) 98 99.0 Intake and Output 12/15/17 12/16/17 19:00 07:00 Intake Total 1160 ml 240 ml Balance 1160 ml 240 ml Intake Oral 1160 ml 240 ml # Voids 5 3 # Bowel Movements 1 Laboratory Tests 12/15/17 19:44: Stool Occult Blood Negative 12/15/17 21:30: Chlamydia trachomatis RNA [Pending] 12/16/17 06:25: White Blood Count 3.0L, Red Blood Count 3.32L, Hemoglobin 9.3L, Hematocrit 30.0L , Mean Corpuscular Volume 90, Mean Corpuscular Hemoglobin 28.1, Mean Corpuscular Hemoglobin Concent 31.0L, Red Cell Distribution Width 17.5H, Platelet Count 302, Mean Platelet Volume 6.6, Neutrophils (%) (Auto) , Lymphocytes (%) (Auto) , Monocytes (%) (Auto) , Eosinophils (%) (Auto) , Basophils (%) (Auto) , Differential Total Cells Counted 100, Neutrophils % ( Manual) 69, Lymphocytes % (Manual) 15L, Monocytes % (Manual) 16H, Eosinophils % (Manual) 0, Basophils % (Manual) 0, Band Neutrophils 0, Platelet Estimate Adequate, Platelet Morphology Normal, Hypochromasia 1+, Anisocytosis 1+, Microcytosis 1+, Ovalocytes 1+, Sodium Level 139, Potassium Level 4.0, Chloride Level 106, Carbon Dioxide Level 28, Anion Gap 5, Blood Urea Nitrogen 6L, Creatinine 0.8, Estimat Glomerular Filtration Rate > 60, Glucose Level 89, Calcium Level 8.9, Total Bilirubin 0.2, Aspartate Amino Transf (AST/SGOT) 16, Alanine Aminotransferase (ALT/SGPT) 14, Alkaline Phosphatase 76, Total Protein 7.8, Albumin 2.4L, Globulin 5.4, Albumin/Globulin Ratio 0.4L Height (Feet): 5 Height (Inches): 2.00 Weight (Pounds): 115 General Appearance: no apparent distress, alert EENT: PERRL/EOMI Cardiovascular: normal peripheral pulses Respiratory/Chest: normal breath sounds, no respiratory distress Abdomen: soft Selvin Mahmood MD Dec 16, 2017 13:14
[2017-12-16] MEDS ORDERED: CEPHALEXIN500 MG ORAL (14:54)
[2017-12-16 16:00] VITALS: BP 124/84
--- NOTE | 2017-12-17 11:16 | Discharge Summary ---
Discharge Summary Discharge Summary _ DATE OF ADMISSION: 12/12/2017 DATE OF DISCHARGE: 12/16/2017. Patient signed AGAINST MEDICAL ADVICE REASON FOR ADMISSION: 47 years old female with a history of HIV , not on any ART, presented with fever, chills ,generalized weakness. Chest x-ray was stable, no evidence of acute cardiopulmonary pathology. EKG revealed no acute ischemic changes No leukocytosis , left shift Profound anemia with hemoglobin 6.0 and hematocrit 19.5 Low potassium 2.6, urinalysis with evidence of UTI Initial lactate slightly elevated 2.1. In emergency department patient received potassium replacement. Transfusion was ordered , and patient was admitted to telemetry floor with diagnosis of sepsis, UTI, profound anemia, HIV status, hypokalemia, noncompliance. CONSULTANTS: senior teller Dr. Gallardo ID specialist staff radiologist/oncologist Dr. Mahmood psychiatrist [facility] COURSE: Patient admitted. Patient started on IV hydration and empiric antibiotics. ID specialist closely followed. Blood culture were positive for Escherichia coli , urine culture was positive for Escherichia coli . Patient was on IV antibiotic but then refused to place new IV line. T cell subsets reveal extremely low CD4 of 1. Patient s not on any anti-retroviral therapy since 2016. Viral load high. Screen for syphilis negative . Screening for chlamydia and gonorrhea still pending Infectious disease specialist discussed with the son need to establish care with HIV provider so she patient can start ART as soon as possible since prognosis extremely poor. Patient at risk for multiply opportunistic infections, given extremely low CD4 count. Potassium was replaced. Renal parameters electrolytes were closely monitored, and nephrotoxins were avoided as needed . Hemoglobin and hematocrit were closely monitored Rheostat Assembler closely followed. Anemia workup was consistent with anemia of chronic disease Patient received 2 units of packed red blood cells. Prior to signing AGAINST MEDICAL ADVICE hemoglobin 9.3 hematocrit 30.0. Stool for occult blood was negative. According to staff radiologist , patient had anemia secondary to myelosuppression and HIV/ AIDS. Patient also noted to have leukopenia secondary to underlying HIV disease . CT of the head revealed no acute intracranial pathology. Patient noted to have sinus tachycardia which was likely secondary to intravascular volume depletion as per senior teller. Patient was continued to be hydrated, but later refused to start new IV line. Psychiatrist seen and evaluated , and diagnosed patient with schizophrenia . Psychiatrist optimized psychiatric medication regimen. Patient decided to sign AGAINST MEDICAL ADVICE. Fever resolved. She stated she felt better and refused any further treatment. The risks and consequences of signing AGAINST MEDICAL ADVICE were discussed with patient in detail. . Patient verbalized understanding, nevertheless signed AMA form and left. 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 I was not involved in the patient's management. Iraida Arteaga NP Dec 17, 2017 11:16
[2017-12-17] MEDS ORDERED: UNOBMED (17:32)
== END 2017-12-16 16:03 | disposition left against medical advice (07) | DRG 975 ==
LOC: EDBD 20:15 → EMR 20:45 → 2E 21:23 → EDBEDREQSVC 21:41 → EDBEDREQ 23:04 → 2E 12-13 12:40 → 4W 12-15 15:57
PROC: 30233N1 Transfusion of Nonautologous Red Blood Cells into Peripheral Vein, Percutaneous Approach (ICD-10-PCS; principal; 2017-12-12)
DX: A41.9 Sepsis, unspecified organism (principal); B20 Human immunodeficiency virus [HIV] disease; N39.0 Urinary tract infection, site not specified; E46 Unspecified protein-calorie malnutrition; B96.20 Unspecified Escherichia coli [E. coli] as the cause of diseases classified elsewhere; D64.9 Anemia, unspecified; E87.6 Hypokalemia; Z91.19 Patient's noncompliance with other medical treatment and regimen; Z53.29 Procedure and treatment not carried out because of patient's decision for other reasons; R00.0 Tachycardia, unspecified; R13.10 Dysphagia, unspecified; K20.9 Esophagitis, unspecified; F20.9 Schizophrenia, unspecified; D63.8 Anemia in other chronic diseases classified elsewhere; E86.9 Volume depletion, unspecified
CPT/HCPCS: 36415; 70450; 71045; 80053; 81003; 82270; 82550; 82728; 82746; 83540; 83550; 83605; 83615; 83880; 84443; 85007; 85025; 85044; 85060; 85384; 85610; 85730; 86360; 86592; 86850; 86900; 86901; 86920; 87040; 87081; 87086; 87181; 87491; 87536; 99285; J8499

== ENCOUNTER 2017-12-17 13:20 | Inpatient (IN) | payer MEDICAID ==
[~2017-12-17] VITALS: Ht 152.4 cm; Wt 49.4 kg
[~2017-12-17 13:20] MED LIST changes: +CEPHALEXIN500 MG ORAL
[2017-12-17 13:47] VITALS: BP 144/92
[2017-12-17 15:34] LABS: BASOPHILS % (AUTO) 0.4 % (0.0-2.0); EOSINOPHILS % (AUTO) 1.3 % (0.0-3.0); HEMATOCRIT 31.4 % (37.0-47.0); HEMOGLOBIN 9.6 G/DL (12.0-16.0); LYMPHOCYTES % (AUTO) 7.7 % (20.0-45.0); MEAN CORPUSCULAR VOLUME 90 FL (80-99); MONOCYTES % (AUTO) 7.3 % (1.0-10.0); NEUTROPHILS % (AUTO) 83.3 % (45.0-75.0); PLATELET COUNT 269 K/UL (150-450); RED BLOOD COUNT 3.48 M/UL (4.20-5.40); RED CELL DISTRIBUTION WIDTH 17.6 % (11.6-14.8)
[2017-12-17 15:39] LABS: ANION GAP 9 mmol/L (5-15); BLOOD UREA NITROGEN 7 mg/dL (7-18); CARBON DIOXIDE 29 MMOL/L (21-32); CHLORIDE 99 MMOL/L (98-107); CREATININE 0.7 MG/DL (0.55-1.30); POTASSIUM 3.3 MMOL/L (3.5-5.1); SODIUM 137 MMOL/L (136-145)
[2017-12-17 15:44] LABS: ALANINE AMINOTRANSFERASE 14 U/L (12-78); ALBUMIN 2.7 G/DL (3.4-5.0); ALBUMIN/GLOBULIN RATIO 0.5 (1.0-2.7); ALKALINE PHOSPHATASE 77 U/L (46-116); ASPARTATE AMINO TRANSFERASE 21 U/L (15-37); BILIRUBIN,TOTAL 0.2 MG/DL (0.2-1.0)
--- NOTE | 2017-12-17 16:35 | Diagnostic Imaging Report ---
Indication: Pain, altered mental status Technique: MRI the brain performed utilizing T1 sagittal, T2 axial, T1 FLAIR axial, T2 FLAIR axial, T2*GRE and diffusion axial images without gadolinium. Comparison: Noncontrast CT of the head 12/16/2017 Findings: No diffusion abnormalities are seen on diffusion weighted imaging. No evidence of focal signal dropout on GRE to suggest acute intracranial hemorrhage. The sulci, ventricles and cisterns are mildly prominent consistent with very mild atrophy. Very mild periventricular white matter T2 hyperintensity seen without mass effect. There is no shift of midline structures. No significant extra-axial collections of fluid or blood are demonstrated. Expected signal flow voids are seen of the vessels of the skull base. Visualized mastoid air cells unremarkable. There is mucosal thickening involving the left sphenoid sinus and some ethmoid air cells. No focal bony calvarium or soft tissue lesions are seen. IMPRESSION: No evidence of acute infarct. No acute intracranial hemorrhage, mass effect or midline shift. Mild atrophy. Correlate clinically. Left sphenoid and ethmoid sinusitis.
[2017-12-17] MEDS ORDERED: UNOBMED (17:32)
[2017-12-17 19:00] VITALS: BP 122/77
--- NOTE | 2017-12-17 20:56 | Emergency Room Report ---
History of Present Illness General Chief Complaint: General Complaint Source: Family Member Present Illness HPI 47-year-old female presents to the emergency department complaining of imbalance /having her equilibrium off. Patient has generalized complaint she also reports 6/10 in severity sore throat. Patient is HIV positive and left AMA from the hospital today after CAT scan. Patient was noted to have severe leukopenia and was being seen by several specialists. Patient is not on HIV medications. Patient also will make bizarre, stating that "she just gave and is breast-feeding", she also reports that it is not safe for her "womb here " patient denies fevers or chills. She denies neck pain or stiffness. Denies rash. Patient denies recent ear infection. Denies CP, Palpitations, LOC, Changes in Vision, Sensation, paresthesias, or a sudden severe headache. Denies hallucinations. Denies SI/HI Allergies: Coded Allergies: SULFAMETHOXAZOLE (Verified Allergy, Unknown, 12/17/17) TRIMETHOPRIM (Verified Allergy, Unknown, 12/17/17) Patient History Past Medical History: see triage record, psych hx - recent schizophrenia dx. , HIV Past Surgical History: none Pertinent Family History: none Now: No Reviewed Nursing Documentation: PMH: Agreed; PSxH: Agreed Nursing Documentation-PMH Past Medical History: No Stated History Hx Cardiac Problems: No Hx Cancer: No Hx Gastrointestinal Problems: No History Of Psychiatric Problem: Yes - schizophrenia Hx Neurological Problems: Yes - cmv Hx Head Trauma: Yes Review of Systems All Other Systems: negative except mentioned in HPI Physical Exam Vital Signs Date Time Temp Pulse Resp B/P (MAP) Pulse Ox O2 Delivery O2 Flow Rate FiO2 12/17/17 13:37 98.1 100 18 144/92 100 Room Air 98.1 Sp02 EP Interpretation: reviewed, normal General Appearance: alert, GCS 15, non-toxic, thin, Chronically Ill Head: normocephalic, atraumatic Eyes: bilateral eye normal inspection, bilateral eye PERRL ENT: hearing grossly normal, normal voice, TMs + canals normal, uvula midline, other - thick white plaque on the post. pharynx and some on the inner left cheek. able to scrape off with tongue depressor. Neck: full range of motion, no meningismus, no bony tend Respiratory: lungs clear, normal breath sounds, no wheezing, speaking full sentences Cardiovascular #1: regular rate, rhythm Gastrointestinal: non tender, soft Rectal: deferred Genitourinary: normal inspection, no CVA tenderness Musculoskeletal: back normal, gait/station normal, normal range of motion, non- tender Neurologic: alert, oriented x3, responsive, motor strength/tone normal, sensory intact, normal gait - Pt. has slightly widened gait, mild stagger on occasion, able to perform heel to toe, and walk with heel to toe. Negative pronator drift, no facial droop, equal command post superintendent strength. , speech normal, grossly normal Psychiatric: no suicidal/homicidal ideation, other - Patient is alert and oriented and able to answer questions however on occasion she is very bizarre responses. noted to have a bit of a flat affect. Reflexes: 2+ knee (R), 2+ knee (L) Skin: normal color, no rash, warm/dry, well hydrated Medical Decision Making PA Attestation Dr. rosen is my supervising Physician whom patient management has been discussed with. Diagnostic Impression: Primary Impression: Altered mental status Qualified Codes: R41.82 - Altered mental status, unspecified Additional Impressions: Leukopenia Qualified Codes: D72.810 - Lymphocytopenia Thrush ER Course 47-year-old female presents to the emergency department complaining of imbalance /having her equilibrium off. Patient has generalized complaint she also reports 6/10 in severity sore throat. Patient is HIV positive and left AMA from the hospital today after CAT scan. Patient was noted to have severe leukopenia and was being seen by several specialists. Patient is not on HIV medications. Patient also will make bizarre, stating that "she just gave and is breast-feeding", she also reports that it is not safe for her "womb here " patient denies fevers or chills. She denies neck pain or stiffness. Denies rash. Patient denies recent ear infection. Denies CP, Palpitations, LOC, Changes in Vision, Sensation, paresthesias, or a sudden severe headache. Denies hallucinations. Denies SI/HI Ddx considered but are not limited to Mnire's, BPPV, labyrinthitis, cerebellar stroke, hypovolemia,Infection, psychotic episode, schizophrenia just to name a few. It appears patient was being treated for UTI here in the hospital. Also had psychiatric evaluation of his diagnosis schizophrenia. - CD4 count was noted to be : 1 Vital signs: are WNL, pt. is afebrile H&PE are most consistent with : medication and medical treatment plan non- compliance, psychiatric disorder, chronic illness. Pt. has grossly normal neurological examination. ORDERS: -MRI Brain with contrast: unremarkable -CMP: unremarkable - CBC: Leukopenia --lab results are consistent with recent laboratory trend. ED INTERVENTIONS: I feel this patient would greatly benefit from hospital admission. She has severely depleted immune system and is not currently being managed by infectious disease doctor and not on HIV medications. In addition to severe chronic illness, patient also noted to have moderate psychiatric symptoms as well which can hinder her outpatient compliance. DISPOSITION: at this time pt. will be admitted to Dr. Jeffery for AMS, Leukopenia. Dr. Jeffery agreed to admit the pt. and to continue pt. care management. Labs Test 12/17/17 15:10 White Blood Count 4.0 K/UL (4.8-10.8) Red Blood Count 3.48 M/UL (4.20-5.40) Hemoglobin 9.6 G/DL (12.0-16.0) Hematocrit 31.4 % (37.0-47.0) Mean Corpuscular Volume 90 FL (80-99) Mean Corpuscular Hemoglobin 27.6 PG (27.0-31.0) Mean Corpuscular Hemoglobin Concent 30.7 G/DL (32.0-36.0) Red Cell Distribution Width 17.6 % (11.6-14.8) Platelet Count 269 K/UL (150-450) Mean Platelet Volume 6.2 FL (6.5-10.1) Neutrophils (%) (Auto) 83.3 % (45.0-75.0) Lymphocytes (%) (Auto) 7.7 % (20.0-45.0) Monocytes (%) (Auto) 7.3 % (1.0-10.0) Eosinophils (%) (Auto) 1.3 % (0.0-3.0) Basophils (%) (Auto) 0.4 % (0.0-2.0) Sodium Level 137 MMOL/L (136-145) Potassium Level 3.3 MMOL/L (3.5-5.1) Chloride Level 99 MMOL/L (98-107) Carbon Dioxide Level 29 MMOL/L (21-32) Anion Gap 9 mmol/L (5-15) Blood Urea Nitrogen 7 mg/dL (7-18) Creatinine 0.7 MG/DL (0.55-1.30) Estimat Glomerular Filtration Rate > 60 mL/min (>60) Glucose Level 85 MG/DL (74-106) Calcium Level 9.0 MG/DL (8.5-10.1) Total Bilirubin 0.2 MG/DL (0.2-1.0) Aspartate Amino Transf (AST/SGOT) 21 U/L (15-37) Alanine Aminotransferase (ALT/SGPT) 14 U/L (12-78) Alkaline Phosphatase 77 U/L (46-116) Total Protein 8.2 G/DL (6.4-8.2) Albumin 2.7 G/DL (3.4-5.0) Globulin 5.5 g/dL Albumin/Globulin Ratio 0.5 (1.0-2.7) CT/MRI/US Diagnostic Results CT/MRI/US Diagnostic Results : Imaging Test Ordered: -MRI Brain with contrast Impression Unremarkable Per official radiology report- Please see report for specific details. Last Vital Signs Date Time Temp Pulse Resp B/P (MAP) Pulse Ox O2 Delivery O2 Flow Rate FiO2 12/17/17 19:00 99.3 82 18 122/77 98 Room Air 99.3 Disposition: ADMITTED INPATIENT Condition: Serious Referrals: NON PHYSICIAN (PCP) Daniella Durant Dec 17, 2017 20:56
[2017-12-17 20:59] VITALS: BP 145/87
[2017-12-17] MEDS ORDERED: LORazepam Inj 2mg/ml 1ml IV PRN (21:45)
[2017-12-17] MEDS: D5NS 1,000 ML IV SCH (23:29)
[2017-12-17] MEDS: Cefepime HCl 2 GM in D5W 55 ML IVPB SCH (23:30)
[2017-12-18] VITALS: BP 116/63
[2017-12-18] MEDS: Vancomycin 500mg in D5W 275ml IVPB SCH ×2 (00:56→12:00)
[2017-12-18 04:00] VITALS: BP 134/84
[2017-12-18 07:08] LABS: APPEARANCE,URINE SLIGHTLY CLOUDY; BILIRUBIN, URINE NEGATIVE (NEGATIVE); COLOR,URINE PALE YELLOW; GLUCOSE, URINE (UA) NEGATIVE (NEGATIVE); KETONES,URINE NEGATIVE (NEGATIVE); LEUKOCYTE ESTERASE ,URINE NEGATIVE (NEGATIVE); NITRITE,URINE NEGATIVE (NEGATIVE); PH,URINE 8 (4.5-8.0); PROTEIN,URINE 1+ (NEGATIVE); UROBILINOGEN,URINE NORMAL MG/DL (0.0-1.0)
[2017-12-18 08:00] VITALS: BP 130/76
[2017-12-18] MEDS: Cefepime HCl 2 GM in D5W 55 ML IVPB SCH (09:00)
[2017-12-18] MEDS ORDERED: Pantoprazole Inj IVP SCH (09:00)
--- NOTE | 2017-12-18 09:49 | Nephrology Progress Note ---
Assessment/Plan Assessment/Plan Patient seen and examined. Full consult dictated Subjective Allergies: Coded Allergies: SULFAMETHOXAZOLE (Verified Allergy, Unknown, 12/17/17) TRIMETHOPRIM (Verified Allergy, Unknown, 12/17/17) Objective Last 24 Hour Vital Signs Date Time Temp Pulse Resp B/P (MAP) Pulse Ox O2 Delivery O2 Flow Rate FiO2 12/18/17 04:00 98.4 96 18 134/84 (101) 98.4 12/18/17 01:46 Room Air 12/18/17 00:00 99.5 90 19 116/63 (80) 99.5 12/17/17 20:59 99.8 103 22 145/87 (106) 100 99.8 12/17/17 20:55 99.3 82 18 122/77 98 Room Air 99.3 12/17/17 19:00 99.3 82 18 122/77 98 Room Air 99.3 12/17/17 13:47 98.1 72 18 144/92 100 Room Air 98.1 12/17/17 13:37 98.1 100 18 144/92 100 Room Air 98.1 Intake and Output 12/17/17 12/18/17 19:00 07:00 Intake Total 0 ml 510 ml Balance 0 ml 510 ml Intake Oral 0 ml IV Total 510 ml # Voids 3 Laboratory Tests 12/17/17 15:10: White Blood Count 4.0L, Red Blood Count 3.48L, Hemoglobin 9.6L, Hematocrit 31.4L , Mean Corpuscular Volume 90, Mean Corpuscular Hemoglobin 27.6, Mean Corpuscular Hemoglobin Concent 30.7L, Red Cell Distribution Width 17.6H, Platelet Count 269, Mean Platelet Volume 6.2L, Neutrophils (%) (Auto) 83.3H, Lymphocytes (%) (Auto) 7.7L, Monocytes (%) (Auto) 7.3, Eosinophils (%) (Auto) 1.3, Basophils (%) (Auto) 0.4, Sodium Level 137, Potassium Level 3.3L, Chloride Level 99, Carbon Dioxide Level 29, Anion Gap 9, Blood Urea Nitrogen 7, Creatinine 0.7, Estimat Glomerular Filtration Rate > 60, Glucose Level 85, Calcium Level 9.0, Total Bilirubin 0.2, Aspartate Amino Transf (AST/SGOT) 21, Alanine Aminotransferase (ALT/SGPT) 14, Alkaline Phosphatase 77, Troponin I 0.000, Total Protein 8.2, Albumin 2.7L, Globulin 5.5, Albumin/Globulin Ratio 0.5L 12/18/17 06:15: Urine Color Pale yellow, Urine Appearance Slightly cloudy, Urine pH 8, Urine Specific Bud 1.010, Urine Protein 1+H, Urine Glucose (UA) Negative, Urine Ketones Negative, Urine Occult Blood Negative, Urine Nitrite Negative, Urine Bilirubin Negative, Urine Urobilinogen Normal, Urine Leukocyte Esterase Negative , Urine RBC 0-2, Urine WBC 2-4, Urine Squamous Epithelial Cells Few, Urine Bacteria Few Height (Feet): 5 Height (Inches): 0.00 Weight (Pounds): 109 Sohail Jett M.D. Dec 18, 2017 09:49
[2017-12-18 12:00] VITALS: BP 138/91
--- NOTE | 2017-12-18 12:55 | Consultation ---
History of Present Illness General Date patient seen: Dec 18, 2017 Chief Complaint: General Complaint Present Illness HPI 47-year-old female presents to the emergency department complaining of imbalance /having her equilibrium off. Allergies: Coded Allergies: SULFAMETHOXAZOLE (Verified Allergy, Unknown, 12/17/17) TRIMETHOPRIM (Verified Allergy, Unknown, 12/17/17) Medication History Scheduled Cephalexin* (Keflex*), 500 MG ORAL EVERY 6 HOURS, (Reported) Dolutegravir Sodium (Tivicay), 50 MG PO DAILY, (Reported) Emtricitabine/Tenofovir 200-300MG* (Truvada 200-300MG*), 1 TAB ORAL DAILY, ( Reported) Miscellaneous Medications Unable to Obtain Medications (Unable To Obtain Meds), (Reported) Durable Medical Equipment Comp.stocking,Knee,Regular,Med (Truform Compression Stocking), EACH [facility], (DME) Patient History Limited by: medical condition History Provided By: Patient, Medical Record, PMD Healthcare decision maker Resuscitation status Full Code Advanced Directive on File Past Medical/Surgical History Past Medical/Surgical History: (1) Fever (2) Sepsis (3) UTI (urinary tract infection) (4) [id number] (5) Thrush (6) Adverse drug reaction (7) Headache (8) Leucopenia (9) 65888 (10) Head trauma (11) Altered level of consciousness (12) 134578 (13) Pedal edema (14) Acute HIV infection syndrome (15) Acute confusion due to infection (16) Headache (17) Leukopenia (18) Altered mental status Review of Systems Psychiatric: Reports: prior hx, anxiety, depressed feelings, emotional problems , hallucinations Physical Exam General Appearance: no apparent distress, alert Neurologic: oriented x 3, responsive, depressed affect Last 24 Hour Vital Signs Date Time Temp Pulse Resp B/P (MAP) Pulse Ox O2 Delivery O2 Flow Rate FiO2 12/18/17 12:00 99.6 102 18 138/91 (107) 100 99.6 12/18/17 09:00 Room Air 12/18/17 08:00 99.4 98 18 130/76 (94) 99 99.4 12/18/17 04:00 98.4 96 18 134/84 (101) 98.4 12/18/17 01:46 Room Air 12/18/17 00:00 99.5 90 19 116/63 (80) 99.5 12/17/17 20:59 99.8 103 22 145/87 (106) 100 99.8 12/17/17 20:55 99.3 82 18 122/77 98 Room Air 99.3 12/17/17 19:00 99.3 82 18 122/77 98 Room Air 99.3 12/17/17 13:47 98.1 72 18 144/92 100 Room Air 98.1 12/17/17 13:37 98.1 100 18 144/92 100 Room Air 98.1 Intake and Output 12/17/17 12/18/17 19:00 07:00 Intake Total 0 ml 510 ml Balance 0 ml 510 ml Intake Oral 0 ml IV Total 510 ml # Voids 3 Laboratory Tests Test 12/17/17 15:10 12/18/17 06:15 White Blood Count 4.0 K/UL (4.8-10.8) L Red Blood Count 3.48 M/UL (4.20-5.40) L Hemoglobin 9.6 G/DL (12.0-16.0) L Hematocrit 31.4 % (37.0-47.0) L Mean Corpuscular Volume 90 FL (80-99) Mean Corpuscular Hemoglobin 27.6 PG (27.0-31.0) Mean Corpuscular Hemoglobin Concent 30.7 G/DL (32.0-36.0) L Red Cell Distribution Width 17.6 % (11.6-14.8) H Platelet Count 269 K/UL (150-450) Mean Platelet Volume 6.2 FL (6.5-10.1) L Neutrophils (%) (Auto) 83.3 % (45.0-75.0) H Lymphocytes (%) (Auto) 7.7 % (20.0-45.0) L Monocytes (%) (Auto) 7.3 % (1.0-10.0) Eosinophils (%) (Auto) 1.3 % (0.0-3.0) Basophils (%) (Auto) 0.4 % (0.0-2.0) Sodium Level 137 MMOL/L (136-145) Potassium Level 3.3 MMOL/L (3.5-5.1) L Chloride Level 99 MMOL/L (98-107) Carbon Dioxide Level 29 MMOL/L (21-32) Anion Gap 9 mmol/L (5-15) Blood Urea Nitrogen 7 mg/dL (7-18) Creatinine 0.7 MG/DL (0.55-1.30) Estimat Glomerular Filtration Rate > 60 mL/min (>60) Glucose Level 85 MG/DL (74-106) Calcium Level 9.0 MG/DL (8.5-10.1) Total Bilirubin 0.2 MG/DL (0.2-1.0) Aspartate Amino Transf (AST/SGOT) 21 U/L (15-37) Alanine Aminotransferase (ALT/SGPT) 14 U/L (12-78) Alkaline Phosphatase 77 U/L (46-116) Troponin I 0.000 ng/mL (0.000-0.056) Total Protein 8.2 G/DL (6.4-8.2) Albumin 2.7 G/DL (3.4-5.0) L Globulin 5.5 g/dL Albumin/Globulin Ratio 0.5 (1.0-2.7) L Urine Color Pale yellow Urine Appearance Slightly cloudy Urine pH 8 (4.5-8.0) Urine Specific [place] 1.010 (1.005-1.035) Urine Protein 1+ (NEGATIVE) H Urine Glucose (UA) Negative (NEGATIVE) Urine Ketones Negative (NEGATIVE) Urine Occult Blood Negative (NEGATIVE) Urine Nitrite Negative (NEGATIVE) Urine Bilirubin Negative (NEGATIVE) Urine Urobilinogen Normal MG/DL (0.0-1.0) Urine Leukocyte Esterase Negative (NEGATIVE) Urine RBC 0-2 /HPF (0 - 2) Urine WBC 2-4 /HPF (0 - 2) Urine Squamous Epithelial Cells Few /LPF (NONE/OCC) Urine Bacteria Few /HPF (NONE) Height (Feet): 5 Height (Inches): 0.00 Weight (Pounds): 109 Medications Current Medications Medications (Trade) Dose Ordered Sig/Thierno Route PRN Reason Start Time Stop Time Status Last Admin Dose Admin Acetaminophen (Tylenol) 650 mg Q6H PRN ORAL Mild Pain/Temp > 100.5 12/17/17 22:00 01/16/18 21:59 Cefepime HCl 2 gm/ Dextrose 55 ml @ 110 mls/hr EVERY 12 HOURS IVPB 12/17/17 22:45 12/24/17 22:44 12/17/17 23:30 Dextrose/Sodium Chloride 1,000 ml @ 60 mls/hr [id number] IV 12/17/17 21:30 01/16/18 21:29 12/17/17 23:29 Ertapenem (INVanz) 1 gm DAILY IM 12/18/17 13:00 12/23/17 12:59 Lidocaine (Xylocaine 1% MPF 5ml) 3.2 ml DAILY INJ 12/18/17 13:00 01/17/18 12:59 Lorazepam (Ativan 2mg/ml 1ml) 1 mg Q8H PRN IV For Anxiety 12/17/17 21:45 12/24/17 21:44 Pantoprazole (Protonix) 40 mg DAILY ORAL 12/19/17 09:00 01/18/18 08:59 Potassium Chloride (K-Dur) 20 meq DAILY ORAL 12/19/17 10:30 01/18/18 10:29 Risperidone (RisperDAL) 1 mg BID ORAL 12/18/17 13:00 01/17/18 12:59 UNV Risperidone (RisperDAL) 2 mg BEDTIME ORAL 12/18/17 21:00 01/17/18 20:59 Vancomycin HCl (Vanco rx to dose) 1 ea DAILY PRN MISC Per rx protocol 12/17/17 22:45 01/16/18 22:44 Vancomycin HCl 500 mg/Dextrose 275 ml @ 275 mls/hr Q12H IVPB 12/18/17 00:00 12/23/17 00:00 12/18/17 00:56 Assessment/Plan Status: stable Assessment/Plan Schizophrenia Agitation risperdal 1mg po bid haldol dec 50mg x 1 time. Wesley Pérez MD Dec 18, 2017 12:55
[2017-12-18] MEDS ORDERED: Lidocaine 1% MPF 10mg/ml 5ml INJ SCH (13:00)
[2017-12-18] MEDS ORDERED: Ertapenem (INVanz) 1gm Inj IM SCH (13:00)
[2017-12-18] MEDS ORDERED: LORazepam 1mg tab ORAL PRN (13:00)
--- NOTE | 2017-12-18 13:27 | History & Physical ---
History and Physical History & Physicial HISTORY OF PRESENT ILLNESS: The patient is a 47-year-old female who came to Hospital feeling imbalance. She did leave the hospital AMA, yesterday. Today, she Denies any nausea or vomiting. Denies any diarrhea or constipation. Positive for fever. Denies any abnormal bleeding. PAST SURGICAL HISTORY: Denies. ALLERGIES: NKDA. FAMILY HISTORY: Reviewed and noncontributory. SOCIAL HISTORY: The patient denies history of illicit drug abuse, smoking, or alcohol abuse. CURRENT HOME MEDICATIONS: Tivicay and Truvada. PAST MEDICAL HISTORY: HIV, otherwise denies.Non compliance and leaving AMA PHYSICAL EXAMINATION: VITAL SIGNS: Blood pressure 120/60, pulse rate 120. Temperature 102, 100, and 102.8. Pulse oximetry 95% on room air. HEAD AND NECK: Atraumatic and normocephalic. CHEST: Clear to auscultation. No wheezes, no crackles. HEART: S1 and S2. Tachycardic. Negative for S3. Negative for S4. ABDOMEN: Soft. No organomegaly. MUSCULOSKELETAL: No gross lateralized motor deficit. NEUROLOGIC: The patient is awake, alert, and oriented x3. LABORATORY DATA: reviewed in the chart meds: reviewed and reconciled ASSESSMENT: 1. Dehydration 2. UTI. 3. HIV - CD 4 less than 100 4. Hypokalemia. 5. Severe anemia. 6. GI and DVT prophylaxis. 7. Non compliance and refusal of medication PLAN OF CARE: Continue with the electrolyte supplementation per nephrology. Status post AMA days ago and transfusion in that admission . We will monitor. Infectious Disease has been consulted. Padmini Jeffery MD Dec 18, 2017 13:27
[2017-12-18] MEDS: D5NS 1,000 ML IV SCH (14:10)
[2017-12-18 15:53] VITALS: BP 132/87
[2017-12-18] MEDS ORDERED: D5NS 1000ml IV ONE (16:43)
[2017-12-18] MEDS ORDERED: Tubing IV Secondary IV ONE (16:43)
--- NOTE | 2017-12-18 17:15 | Consultation ---
DATE OF CONSULTATION: 12/18/2017 CONSULTING PHYSICIAN: Sohail Jett M.D. REFERRING PHYSICIAN: Padmini Jeffery M.D. REASON FOR CONSULTATION: 1. Hypokalemia. 2. Dehydration. HISTORY OF PRESENT ILLNESS: The patient is a 47-year-old female, presented to emergency room with imbalance and not feeling well with her equilibrium off. The patient has generalized body aches and sore throat. She is HIV positive and had recently left AMA from the hospital after a CT scan. The patient had severe leukopenia. Noted to have hypokalemia, potassium 3.3. No nausea, vomiting, or diarrhea. ALLERGIES: 1. Sulfamethoxazole. 2. Trimethoprim. PAST MEDICAL HISTORY: 1. HIV. 2. Schizophrenia. FAMILY HISTORY: Noncontributory. PAST SURGICAL HISTORY: None. REVIEW OF SYSTEMS: NEUROLOGIC: The patient is complaining of some lightheadedness and dizziness. CARDIOVASCULAR: No current chest pain, palpitation, or angina. PULMONARY: No difficulty breathing, productive cough, or sputum. GASTROINTESTINAL/GENITOURINARY: No change in urinary or bowel habits. No nausea, vomiting, or diarrhea. ENDOCRINOLOGY: No night sweats, fevers, or chills. MUSCULOSKELETAL: The patient is feeling weak, tired, and fatigued. LABORATORY AND DIAGNOSTIC DATA: Labs dated 12/17/2017, potassium 3.3, sodium 137, creatinine 0.7. Troponin 0. Hemoglobin 9.6, platelet count 269, white cell count 4.0. PHYSICAL EXAMINATION: VITAL SIGNS: Blood pressure 134/84, respiratory rate 18, pulse 96, temperature 98.4. GENERAL: The patient is somnolent, arousable, in no apparent distress. HEENT: Extraocular muscles intact. No lymphadenopathy noted. CARDIOVASCULAR: S1 and S2. No rubs or gallops. PULMONARY: Clear to auscultation bilaterally. No rales, rhonchi, or wheezes. ABDOMINAL: Nondistended and nontender. EXTREMITIES: No edema noted. ASSESSMENT AND PLAN: 1. Hypokalemia. At this time, morning labs are pending. We will place the patient on daily by mouth potassium supplementation. Renal function currently stable. 2. Human immunodeficiency virus. Continue highly active anti-retroviral therapy. 3. Disequilibrium. We will continue IV hydration. Defer management to primary care physician. I would take this opportunity to thank Dr. Mosley for allowing to assist in the care of this patient. Sohail Jett MD DR: FORREST JOB#: [id number] CC:
--- NOTE | 2017-12-18 17:37 | Infectious Diseases Prog Note ---
Assessment/Plan Problems: (1) Bacteremia due to Gram-negative bacteria Assessment & Plan: she grew E coli on her last blood culture, will start cefepime empirically and repeat blood culture to confirm (2) Fever Assessment & Plan: due to the above, continue tylenol empiric coverage , and antibiotics (3) UTI (urinary tract infection) Assessment & Plan: due to E coli, will start cefepime empirically and repeat urine culture (4) Altered level of consciousness Assessment & Plan: suspect metabolic, MRI of the brain ruled out any pathology (5) AIDS Assessment & Plan: patient is poorly complaint with MEDS in general and has no insight, will start her on atovaquon for now and check her G6PD for PJP prophylaxis , will send blood culture for MAC to rule out active disease before we start her on any prophylaxis , she will need referal to HIV specialist to start ART as soon as possible , elementary school social worker to assess and to help for referral and other sources Subjective Allergies: Coded Allergies: SULFAMETHOXAZOLE (Verified Allergy, Unknown, 12/17/17) TRIMETHOPRIM (Verified Allergy, Unknown, 12/17/17) Objective Vital Signs Last 24 Hour Vital Signs Date Time Temp Pulse Resp B/P (MAP) Pulse Ox O2 Delivery O2 Flow Rate FiO2 12/18/17 15:53 98.0 98 20 132/87 (102) 96 98.0 12/18/17 12:00 99.6 102 18 138/91 (107) 100 99.6 12/18/17 09:00 Room Air 12/18/17 08:00 99.4 98 18 130/76 (94) 99 99.4 12/18/17 04:00 98.4 96 18 134/84 (101) 98.4 12/18/17 01:46 Room Air 12/18/17 00:00 99.5 90 19 116/63 (80) 99.5 12/17/17 20:59 99.8 103 22 145/87 (106) 100 99.8 12/17/17 20:55 99.3 82 18 122/77 98 Room Air 99.3 12/17/17 19:00 99.3 82 18 122/77 98 Room Air 99.3 Height (Feet): 5 Height (Inches): 0.00 Weight (Pounds): 109 Laboratory Tests Test 12/18/17 06:15 Urine Color Pale yellow Urine Appearance Slightly cloudy Urine pH 8 (4.5-8.0) Urine Specific [place] 1.010 (1.005-1.035) Urine Protein 1+ (NEGATIVE) H Urine Glucose (UA) Negative (NEGATIVE) Urine Ketones Negative (NEGATIVE) Urine Occult Blood Negative (NEGATIVE) Urine Nitrite Negative (NEGATIVE) Urine Bilirubin Negative (NEGATIVE) Urine Urobilinogen Normal MG/DL (0.0-1.0) Urine Leukocyte Esterase Negative (NEGATIVE) Urine RBC 0-2 /HPF (0 - 2) Urine WBC 2-4 /HPF (0 - 2) Urine Squamous Epithelial Cells Few /LPF (NONE/OCC) Urine Bacteria Few /HPF (NONE) Current Medications Medications (Trade) Dose Ordered Sig/Thierno Route PRN Reason Start Time Stop Time Status Last Admin Dose Admin Acetaminophen (Tylenol) 650 mg Q6H PRN ORAL Mild Pain/Temp > 100.5 12/17/17 22:00 01/16/18 21:59 Cefepime HCl 2 gm/ Dextrose 55 ml @ 110 mls/hr EVERY 12 HOURS IVPB 12/17/17 22:45 12/24/17 22:44 12/17/17 23:30 Dextrose/Sodium Chloride 1,000 ml @ 60 mls/hr [id number] IV 12/17/17 21:30 01/16/18 21:29 12/17/17 23:29 Ertapenem (INVanz) 1 gm DAILY IM 12/18/17 13:00 12/23/17 12:59 12/18/17 15:26 Haloperidol Decanoate (Haldol) 50 mg ONCE ONCE IM 12/18/17 13:00 12/18/17 13:01 UNV Lidocaine (Xylocaine 1% MPF 5ml) 3.2 ml DAILY INJ 12/18/17 13:00 01/17/18 12:59 12/18/17 15:26 Lorazepam (Ativan) 2 mg Q6H PRN ORAL For Anxiety 12/18/17 13:00 12/25/17 12:59 Pantoprazole (Protonix) 40 mg DAILY ORAL 12/19/17 09:00 01/18/18 08:59 Potassium Chloride (K-Dur) 20 meq DAILY ORAL 12/19/17 10:30 01/18/18 10:29 Risperidone (RisperDAL) 1 mg BID ORAL 12/18/17 14:00 01/17/18 13:59 12/18/17 16:06 Vancomycin HCl (Vanco rx to dose) 1 ea DAILY PRN MISC Per rx protocol 12/17/17 22:45 01/16/18 22:44 Vancomycin HCl 500 mg/Dextrose 275 ml @ 275 mls/hr Q12H IVPB 12/18/17 00:00 12/23/17 00:00 12/18/17 00:56 Vesta Dunn M.D. Dec 18, 2017 17:37
[2017-12-18] MEDS ORDERED: Haloperidol Decanoate 50mg Inj IM ONE (18:30)
[2017-12-18] MEDS: Atovaquone 750mg/5ml Susp ORAL SCH (18:32)
[2017-12-18 20:00] VITALS: BP 114/67
--- NOTE | 2017-12-18 22:30 | Consultation ---
DATE OF CONSULTATION: 12/18/2017 INFECTIOUS DISEASE CONSULTATION CONSULTING PHYSICIAN: Vesta Dunn M.D. REQUESTING PHYSICIAN: Padmini Jeffery M.D. REASON FOR CONSULTATION: Recent bacteremia with E. coli and urinary tract infection in AIDS patient who has not been on any anti-retroviral therapy. Recommendation for antibiotics treatment. HISTORY OF PRESENT ILLNESS: The patient is a 47-year-old female with past medical history of HIV, stopped taking her medications since 2016 with no followup or treatment since then for her HIV condition in fact she has AIDS based on her CD4 count, which was checked on her last admission and was one significantly elevated viral load, was readmitted again to [facility] emergency room for altered mental status and weakness. The patient signed AMA recently from [facility] after she had a CT scan of the brain and she was found lethargic and weak. So, she was brought into the hospital. Infectious Disease consultation was requested for antibiotics continuation and further management. REVIEW OF SYSTEMS: Unable to obtain. She is a poor historian. PAST MEDICAL HISTORY: Significant for schizophrenia, HIV was diagnosed around in 2008 and she has stopped taking medication in 2016 since she does not believe in them. PAST SURGICAL HISTORY: Negative. FAMILY HISTORY: Unable to obtain. SOCIAL HISTORY: The patient is homeless. She has a son, which I met on her last admission, unclear whether she was using drugs, tobacco or alcohol. ALLERGIES: She is allergic to Bactrim, unknown what kind of allergy. MEDICATIONS: The patient was on oral Keflex when she was discharged home. For the rest of the medications, please refer to MAR. LABORATORY AND DIAGNOSTIC DATA: Labs showed white count of 4000, hemoglobin of 9.6 and platelet count of 269. BUN of 7 and creatinine of 0.7. Urinalysis negative for UTI. Imaging, brain MRI, which was done yesterday showed left sphenoid and ethmoid sinusitis, mild atrophy. No evidence of acute infarct. No acute intracranial hemorrhage, mass effect or midline shift. PHYSICAL EXAMINATION: VITAL SIGNS: Temperature 99.6 degrees, pulse 102, respiration 18, blood pressure 138/91 and saturation 100% on room air. GENERAL: Middle-aged female cachectic lying in bed, confused, noncompliant, not in acute distress. HEENT: Normocephalic and atraumatic. Pupils reactive to light. Moist oral mucosa. NECK: Supple. No lymphadenopathy. CARDIOVASCULAR: Regular rate and rhythm. Mildly tachycardic. S1 and S2 normal. LUNGS: She had diminished breathing sounds at the bases. No wheezing or rhonchi. ABDOMEN: Soft, nontender, nondistended. Normal bowel sounds. EXTREMITY: No edema. No cyanosis. ASSESSMENT AND RECOMMENDATION: 1. Bacteremia due to gram-negative bacteria, mainly E. coli, pansensitive on her last blood culture. We will start the patient on cefepime empiric coverage if she agrees to take IV, otherwise we will switch her to IM ceftriaxone to complete her course of treatment pending repeated blood culture. We will give vancomycin empiric coverage for now pending repeated blood culture too. 2. Fever suspect due to the above in a poorly compliant patient. No evidence of brain pathology on MRI. We will repeat blood culture and urine does not show any evidence of infection at this point. Continue Tylenol as needed. 3. UTI, previously due to E. coli. The patient will be on cefepime empirically or ceftriaxone if she refused to take IV. 4. Altered mental status. Suspect metabolic MRI of the brain. Rule out any pathology. 5. AIDS, untreated with low CD4 count. The patient had significant allergy to Bactrim. We will attempt to choose alternative for prophylaxis including dapsone or atovaquone whatever she can afford and we will start Zithromax weekly for MAC prophylaxis too. Thank you for the consult. ID will continue to follow. Vesta Dunn M.D. DR: ELIEL JOB#: [id number] CC:
[2017-12-19] VITALS: BP 112/71
[2017-12-19 04:00] VITALS: BP 105/64
[2017-12-19] MEDS: D5NS 1,000 ML IV SCH ×2 (06:44→23:30)
[2017-12-19 08:00] VITALS: BP 123/77
--- NOTE | 2017-12-19 08:56 | Nephrology Progress Note ---
Assessment/Plan Assessment/Plan 1. Hypokalemia, E- ABN - relplaced - patient declining ALL LAB DRAWS 2. UTI- Abx per ID 3. Dehydration- patient driking good amount of fluids 4. HIV Subjective Date patient seen: Dec 19, 2017 Time patient seen: 08:52 ROS Limited/Unobtainable: No Allergies: Coded Allergies: SULFAMETHOXAZOLE (Verified Allergy, Unknown, 12/17/17) TRIMETHOPRIM (Verified Allergy, Unknown, 12/17/17) All Systems: reviewed and negative except above Subjective Patient feels much better and is eating and drinking well Objective Last 24 Hour Vital Signs Date Time Temp Pulse Resp B/P (MAP) Pulse Ox O2 Delivery O2 Flow Rate FiO2 12/19/17 04:00 97.3 76 19 105/64 (78) 99 97.3 12/19/17 00:00 97.3 85 19 112/71 (85) 100 97.3 12/18/17 21:58 97.7 12/18/17 21:00 Room Air 12/18/17 20:59 101.5 12/18/17 20:00 101.5 100 19 114/67 (83) 98 101.5 12/18/17 15:53 98.0 98 20 132/87 (102) 96 98.0 12/18/17 12:00 99.6 102 18 138/91 (107) 100 99.6 12/18/17 09:00 Room Air Intake and Output 12/18/17 12/19/17 19:00 07:00 Intake Total 200 ml Output Total 400 ml Balance -200 ml Intake Oral 200 ml Output Urine Total 400 ml Stool Total 0 ml # Voids 3 Height (Feet): 5 Height (Inches): 0.00 Weight (Pounds): 109 General Appearance: no apparent distress, alert EENT: normal ENT inspection Neck: non-tender, normal alignment, supple Cardiovascular: normal rate, regular rhythm Respiratory/Chest: lungs clear, normal breath sounds Abdomen: normal bowel sounds, non tender, soft Edema: no edema noted Arm (L), no edema noted Arm (R), no edema noted Leg (L), no edema noted Leg (R), no edema noted Pedal (L), no edema noted Pedal (R), no edema noted Generalized Sohail Jett M.D. Dec 19, 2017 08:56
[2017-12-19] MEDS: Atovaquone 750mg/5ml Susp ORAL SCH ×2 (09:36→17:14)
--- NOTE | 2017-12-19 11:31 | General Progress Note ---
Assessment/Plan Assessment/Plan S: I want to go home O: appears comfortable, Denies any sob or chest pain . PHYSICAL EXAMINATION: HEAD AND NECK: Atraumatic and normocephalic. CHEST: Clear to auscultation. No wheezes, no crackles. HEART: S1 and S2. Tachycardic. Negative for S3. Negative for S4. ABDOMEN: Soft. No organomegaly. MUSCULOSKELETAL: No gross lateralized motor deficit. NEUROLOGIC: The patient is awake, alert, and oriented x3. LABORATORY DATA: reviewed in the chart meds: reviewed and reconciled ASSESSMENT: 1. Dehydration 2. UTI. 3. HIV - CD 4 less than 100 4. Hypokalemia. 5. Severe anemia. 6. GI and DVT prophylaxis. 7. Non compliance and refusal of medication Plan: I had a detailed conversation with the sister yesterday . Agree to followup as out patient Subjective Allergies: Coded Allergies: SULFAMETHOXAZOLE (Verified Allergy, Unknown, 12/17/17) TRIMETHOPRIM (Verified Allergy, Unknown, 12/17/17) Objective Last 24 Hour Vital Signs Date Time Temp Pulse Resp B/P (MAP) Pulse Ox O2 Delivery O2 Flow Rate FiO2 12/19/17 09:00 Room Air 12/19/17 08:00 99.7 103 21 123/77 (92) 100 99.7 12/19/17 04:00 97.3 76 19 105/64 (78) 99 97.3 12/19/17 00:00 97.3 85 19 112/71 (85) 100 97.3 12/18/17 21:58 97.7 12/18/17 21:00 Room Air 12/18/17 20:59 101.5 12/18/17 20:00 101.5 100 19 114/67 (83) 98 101.5 12/18/17 15:53 98.0 98 20 132/87 (102) 96 98.0 12/18/17 12:00 99.6 102 18 138/91 (107) 100 99.6 Intake and Output 12/18/17 12/19/17 19:00 07:00 Intake Total 200 ml Output Total 400 ml Balance -200 ml Intake Oral 200 ml Output Urine Total 400 ml Stool Total 0 ml # Voids 3 Height (Feet): 5 Height (Inches): 0.00 Weight (Pounds): 109 Padmini Jeffery MD 12, 2018 11:31
--- NOTE | 2017-12-19 11:49 | General Progress Note ---
Assessment/Plan Status: stable Assessment/Plan Schizophrenia Agitation risperdal 1mg po bid haldol dec 50mg x 1 time. Subjective Date patient seen: Dec 19, 2017 Neurologic/Psychiatric: Reports: anxiety, depressed, emotional problems Allergies: Coded Allergies: SULFAMETHOXAZOLE (Verified Allergy, Unknown, 12/17/17) TRIMETHOPRIM (Verified Allergy, Unknown, 12/17/17) Subjective the pt is hallucinating and is delusional the pt is refusing care and labs Objective Last 24 Hour Vital Signs Date Time Temp Pulse Resp B/P (MAP) Pulse Ox O2 Delivery O2 Flow Rate FiO2 12/19/17 09:00 Room Air 12/19/17 08:00 99.7 103 21 123/77 (92) 100 99.7 12/19/17 04:00 97.3 76 19 105/64 (78) 99 97.3 12/19/17 00:00 97.3 85 19 112/71 (85) 100 97.3 12/18/17 21:58 97.7 12/18/17 21:00 Room Air 12/18/17 20:59 101.5 12/18/17 20:00 101.5 100 19 114/67 (83) 98 101.5 12/18/17 15:53 98.0 98 20 132/87 (102) 96 98.0 12/18/17 12:00 99.6 102 18 138/91 (107) 100 99.6 Intake and Output 12/18/17 12/19/17 19:00 07:00 Intake Total 200 ml Output Total 400 ml Balance -200 ml Intake Oral 200 ml Output Urine Total 400 ml Stool Total 0 ml # Voids 3 Height (Feet): 5 Height (Inches): 0.00 Weight (Pounds): 109 General Appearance: WD/WN, no apparent distress, alert, confused Neurologic: depressed affect Wesley Pérez MD Dec 19, 2017 11:49
[2017-12-19 12:00] VITALS: BP 110/70
[2017-12-19] MEDS ORDERED: Lidocaine 1% MPF 10mg/ml 5ml INJ SCH (15:00)
--- NOTE | 2017-12-19 15:49 | Infectious Diseases Prog Note ---
Assessment/Plan Problems: (1) Bacteremia due to Gram-negative bacteria Assessment & Plan: she grew E coli on her last blood culture, continue ceftriaxon IM for now pending blood culture (2) Fever Assessment & Plan: due to the above, continue tylenol empiric coverage , and antibiotics (3) UTI (urinary tract infection) Assessment & Plan: due to E coli, will start cefepime empirically and repeat urine culture (4) Altered level of consciousness Assessment & Plan: suspect metabolic, MRI of the brain ruled out any pathology (5) AIDS Assessment & Plan: patient is poorly complaint with MEDS in general and has no insight, she stopped taking HIV meds since 2016 . and now has AIDS , will continue atovaquon for now for PJP prophylaxis pending G6PD level , await blood culture for MAC to rule out active disease before we start her on any prophylaxis , she will need referral to HIV specialist to start ART as soon as possible , social studies department chair to assess and to help for referral and other sources . D/W mother in details the need to reestablish her HIV care with [facility] since she has been followed by them in the past . Subjective Constitutional: Reports: no symptoms HEENT: Reports: no symptoms Respiratory: Reports: no symptoms Breasts: Reports: no symptoms Cardiovascular: Reports: no symptoms Gastrointestinal/Abdominal: Reports: no symptoms Genitourinary: Reports: no symptoms Neurologic: Reports: weakness, confusion Psychiatric: Reports: no symptoms Skin: Reports: no symptoms Endocrine: Reports: no symptoms Hematologic: Reports: no symptoms Musculoskeletal: Reports: no symptoms Allergies: Coded Allergies: SULFAMETHOXAZOLE (Verified Allergy, Unknown, 12/17/17) TRIMETHOPRIM (Verified Allergy, Unknown, 12/17/17) Objective Vital Signs Last 24 Hour Vital Signs Date Time Temp Pulse Resp B/P (MAP) Pulse Ox O2 Delivery O2 Flow Rate FiO2 12/19/17 09:00 Room Air 12/19/17 08:00 99.7 103 21 123/77 (92) 100 99.7 12/19/17 04:00 97.3 76 19 105/64 (78) 99 97.3 12/19/17 00:00 97.3 85 19 112/71 (85) 100 97.3 12/18/17 21:58 97.7 12/18/17 21:00 Room Air 12/18/17 20:59 101.5 12/18/17 20:00 101.5 100 19 114/67 (83) 98 101.5 12/18/17 15:53 98.0 98 20 132/87 (102) 96 98.0 Height (Feet): 5 Height (Inches): 0.00 Weight (Pounds): 109 General Appearance: WD/WN, no acute distress HEENT: normocephalic, atraumatic, anicteric, mucous membranes moist, PERRL Respiratory/Chest: chest wall non-tender, lungs clear, normal breath sounds, no respiratory distress, no accessory muscle use Cardiovascular: normal peripheral pulses, normal rate, regular rhythm Abdomen: normal bowel sounds, soft, non tender, no organomegaly, non distended Genitourinary: normal external genitalia Extremities: no cyanosis, no clubbing Skin: no rash, no lesions, no ulcers Neurologic/Psychiatric: alert Current Medications Medications (Trade) Dose Ordered Sig/Thierno Route PRN Reason Start Time Stop Time Status Last Admin Dose Admin Acetaminophen (Tylenol) 650 mg Q6H PRN ORAL Mild Pain/Temp > 100.5 12/17/17 22:00 01/16/18 21:59 12/18/17 20:59 Atovaquone (Mepron Susp) 750 mg TWICE A DAY ORAL 12/18/17 18:00 01/17/18 17:59 12/19/17 09:36 Ceftriaxone Sodium (Rocephin) 2 gm DAILY@1500 IM 12/19/17 15:00 12/26/17 14:59 Dextrose/Sodium Chloride 1,000 ml @ 60 mls/hr [id number] IV 12/17/17 21:30 01/16/18 21:29 12/17/17 23:29 Lidocaine (Xylocaine 1% MPF 5ml) 4.2 ml Q24H INJ 12/19/17 15:00 01/17/18 12:59 Lorazepam (Ativan) 2 mg Q6H PRN ORAL For Anxiety 12/18/17 13:00 12/25/17 12:59 12/19/17 09:36 Pantoprazole (Protonix) 40 mg DAILY ORAL 12/19/17 09:00 01/18/18 08:59 12/19/17 09:36 Potassium Chloride (K-Dur) 20 meq DAILY ORAL 12/19/17 10:30 01/18/18 10:29 12/19/17 09:41 Risperidone (RisperDAL) 1 mg BID ORAL 12/18/17 14:00 01/17/18 13:59 12/19/17 09:39 Vesta Dunn M.D. Dec 19, 2017 15:49
[2017-12-19 16:00] VITALS: BP 110/60
[2017-12-19] MEDS: Lidocaine 1% MPF 10mg/ml 5ml INJ SCH (16:30)
[2017-12-19 20:00] VITALS: BP 108/60
[2017-12-20] VITALS: BP 122/75
[2017-12-20 04:00] VITALS: BP 122/79
[2017-12-20] MEDS: Atovaquone 750mg/5ml Susp ORAL SCH (08:11)
[2017-12-20 08:50] VITALS: BP 131/82
--- NOTE | 2017-12-20 10:47 | General Progress Note ---
Assessment/Plan Status: stable, progressing Assessment/Plan Schizophrenia Agitation risperdal 2mg po bid haldol dec 50mg x 1 time. Subjective Date patient seen: Dec 20, 2017 Neurologic/Psychiatric: Reports: anxiety, depressed, emotional problems Allergies: Coded Allergies: SULFAMETHOXAZOLE (Verified Allergy, Unknown, 12/17/17) TRIMETHOPRIM (Verified Allergy, Unknown, 12/17/17) Subjective the pt is hallucinating . agreed to labs/xray Objective Last 24 Hour Vital Signs Date Time Temp Pulse Resp B/P (MAP) Pulse Ox O2 Delivery O2 Flow Rate FiO2 12/20/17 10:00 102.7 12/20/17 08:50 101.0 121 23 131/82 (98) 99 101.0 12/20/17 08:00 Room Air 12/20/17 04:00 98.4 108 18 122/79 (93) 98 98.4 12/20/17 00:00 98.2 99 18 122/75 (91) 99 98.2 12/19/17 22:00 Room Air 12/19/17 20:00 99.3 107 18 108/60 (76) 97 99.3 12/19/17 17:00 102.2 12/19/17 16:31 102.2 12/19/17 16:00 101.4 100 18 110/60 (77) 100 101.4 12/19/17 12:00 101 20 110/70 (83) 99 Intake and Output 12/19/17 12/20/17 19:00 07:00 Intake Total 720 ml 650 ml Balance 720 ml 650 ml Intake Oral 720 ml 650 ml # Voids 4 4 # Bowel Movements 1 Height (Feet): 5 Height (Inches): 0.00 Weight (Pounds): 109 General Appearance: no apparent distress, alert Neurologic: oriented x 3, responsive, depressed affect Wesley Pérez MD Dec 20, 2017 10:47
--- NOTE | 2017-12-20 10:56 | Nephrology Progress Note ---
Assessment/Plan Assessment/Plan 1. Hypokalemia, E- ABN - awaiting patient to allow labs draws so she can be treated 2. UTI- Abx per ID 3. Dehydration- patient driking good amount of fluids 4. HIV Subjective Date patient seen: Dec 20, 2017 Time patient seen: 10:55 ROS Limited/Unobtainable: No Constitutional: Reports: weakness Allergies: Coded Allergies: SULFAMETHOXAZOLE (Verified Allergy, Unknown, 12/17/17) TRIMETHOPRIM (Verified Allergy, Unknown, 12/17/17) Subjective Patient feels better. Has been declining therapy and lab draws Objective Last 24 Hour Vital Signs Date Time Temp Pulse Resp B/P (MAP) Pulse Ox O2 Delivery O2 Flow Rate FiO2 12/20/17 10:00 102.7 12/20/17 08:50 101.0 121 23 131/82 (98) 99 101.0 12/20/17 08:00 Room Air 12/20/17 04:00 98.4 108 18 122/79 (93) 98 98.4 12/20/17 00:00 98.2 99 18 122/75 (91) 99 98.2 12/19/17 22:00 Room Air 12/19/17 20:00 99.3 107 18 108/60 (76) 97 99.3 12/19/17 17:00 102.2 12/19/17 16:31 102.2 12/19/17 16:00 101.4 100 18 110/60 (77) 100 101.4 12/19/17 12:00 101 20 110/70 (83) 99 Intake and Output 12/19/17 12/20/17 19:00 07:00 Intake Total 720 ml 650 ml Balance 720 ml 650 ml Intake Oral 720 ml 650 ml # Voids 4 4 # Bowel Movements 1 Height (Feet): 5 Height (Inches): 0.00 Weight (Pounds): 109 General Appearance: no apparent distress EENT: normal ENT inspection Neck: normal alignment, supple Cardiovascular: normal rate, regular rhythm Respiratory/Chest: lungs clear, normal breath sounds Abdomen: normal bowel sounds, non tender, soft Edema: no edema noted Arm (L), no edema noted Arm (R), no edema noted Leg (L), no edema noted Leg (R), no edema noted Pedal (L), no edema noted Pedal (R), no edema noted Generalized De Bethel,Sohail M.D. Dec 20, 2017 10:56
[2017-12-20 11:25] LABS: BASOPHILS % (AUTO) 0.2 % (0.0-2.0); EOSINOPHILS % (AUTO) 0.3 % (0.0-3.0); HEMATOCRIT 29.6 % (37.0-47.0); HEMOGLOBIN 9.3 G/DL (12.0-16.0); MEAN CORPUSCULAR VOLUME 90 FL (80-99); MONOCYTES % (AUTO) 4.9 % (1.0-10.0); NEUTROPHILS % (AUTO) 81.7 % (45.0-75.0); PLATELET COUNT 182 K/UL (150-450); RED CELL DISTRIBUTION WIDTH 17.8 % (11.6-14.8); WHITE BLOOD COUNT 3.6 K/UL (4.8-10.8)
--- NOTE | 2017-12-20 11:39 | General Progress Note ---
Assessment/Plan Assessment/Plan S: I want to go home O: appears comfortable, Denies any sob or chest pain . PHYSICAL EXAMINATION: HEAD AND NECK: Atraumatic and normocephalic. CHEST: Clear to auscultation. No wheezes, no crackles. HEART: S1 and S2. Tachycardic. Negative for S3. Negative for S4. ABDOMEN: Soft. No organomegaly. MUSCULOSKELETAL: No gross lateralized motor deficit. NEUROLOGIC: The patient is awake, alert, and oriented x3. LABORATORY DATA: reviewed in the chart meds: reviewed and reconciled ASSESSMENT: 1. Dehydration 2. UTI. 3. HIV - CD 4 less than 100 4. Hypokalemia. 5. Severe anemia. 6. GI and DVT prophylaxis. 7. Non compliance and refusal of medication 8. Fever Plan: Persistent fever Blood culture, ESR, CRP and echo are ordered Subjective Allergies: Coded Allergies: SULFAMETHOXAZOLE (Verified Allergy, Unknown, 12/17/17) TRIMETHOPRIM (Verified Allergy, Unknown, 12/17/17) Objective Last 24 Hour Vital Signs Date Time Temp Pulse Resp B/P (MAP) Pulse Ox O2 Delivery O2 Flow Rate FiO2 12/20/17 10:00 102.7 12/20/17 08:50 101.0 121 23 131/82 (98) 99 101.0 12/20/17 08:00 Room Air 12/20/17 04:00 98.4 108 18 122/79 (93) 98 98.4 12/20/17 00:00 98.2 99 18 122/75 (91) 99 98.2 12/19/17 22:00 Room Air 12/19/17 20:00 99.3 107 18 108/60 (76) 97 99.3 12/19/17 17:00 102.2 12/19/17 16:31 102.2 12/19/17 16:00 101.4 100 18 110/60 (77) 100 101.4 12/19/17 12:00 101 20 110/70 (83) 99 Intake and Output 12/19/17 12/20/17 19:00 07:00 Intake Total 720 ml 650 ml Balance 720 ml 650 ml Intake Oral 720 ml 650 ml # Voids 4 4 # Bowel Movements 1 Laboratory Tests 12/20/17 10:55: White Blood Count 3.6L, Red Blood Count 3.30L, Hemoglobin 9.3L, Hematocrit 29.6L , Mean Corpuscular Volume 90, Mean Corpuscular Hemoglobin 28.3, Mean Corpuscular Hemoglobin Concent 31.6L, Red Cell Distribution Width 17.8H, Platelet Count 182, Mean Platelet Volume 6.0L, Neutrophils (%) (Auto) 81.7H, Lymphocytes (%) (Auto) 13.0L, Monocytes (%) (Auto) 4.9, Eosinophils (%) (Auto) 0.3, Basophils (%) (Auto) 0.2, Sodium Level [Pending], Potassium Level [Pending] , Chloride Level [Pending], Carbon Dioxide Level [Pending], Blood Urea Nitrogen [Pending], Creatinine [Pending], Estimat Glomerular Filtration Rate [Pending], Glucose Level [Pending], Calcium Level [Pending] Height (Feet): 5 Height (Inches): 0.00 Weight (Pounds): 109 Padmini Jeffery MD Dec 20, 2017 11:38
[2017-12-20 11:43] LABS: ANION GAP 7 mmol/L (5-15); BLOOD UREA NITROGEN 9 mg/dL (7-18); CALCIUM 8.7 MG/DL (8.5-10.1); CARBON DIOXIDE 28 MMOL/L (21-32); CHLORIDE 96 MMOL/L (98-107); CREATININE 0.9 MG/DL (0.55-1.30); POTASSIUM 4.6 MMOL/L (3.5-5.1); SODIUM 130 MMOL/L (136-145)
[2017-12-20 12:00] VITALS: BP 102/63
--- NOTE | 2017-12-20 13:40 | Diagnostic Imaging Report ---
Indication: Pain, question infection. Technique: XRAY Chest 1v Comparison: 12/12/2017 Findings: Heart size and mediastinal contours within normal limits and stable compared to the prior exam. There is no definite focal airspace consolidation, pleural effusion or pneumothorax. Osseous structures are stable. Impression: No definite focal airspace consolidation, pleural effusion or pneumothorax.
--- NOTE | 2017-12-20 13:48 | Diagnostic Imaging Report ---
Indication: Pain status post fall Technique: XRAY Pelvis 1v Comparison: None Findings: No definite/displaced acute fracture identified. Symphysis pubis, hip joints and sacroiliac joints obtained. Bowel gas pattern unremarkable. No radiopaque foreign body. Impression: No definite/displaced acute fracture.
[2017-12-20] MEDS: Lidocaine 1% MPF 10mg/ml 5ml INJ SCH (15:51)
[2017-12-20 16:00] VITALS: BP 102/66
[2017-12-20] MEDS: D5NS 1,000 ML IV SCH (16:10)
--- NOTE | 2017-12-20 16:27 | Infectious Diseases Prog Note ---
Assessment/Plan Problems: (1) Bacteremia due to Gram-negative bacteria Assessment & Plan: she grew E coli on her last blood culture, now on ceftriaxon IM to finish her course of treatment for two weeks , pending repeated blood culture (2) Fever Assessment & Plan: could be due to atovaquon , will stop and monitor clinically pending G6PD level , continue tylenol empiric coverage , and antibiotics (3) UTI (urinary tract infection) Assessment & Plan: due to E coli, continue ceftriaxon IM pending repeated urine culture (4) Altered level of consciousness Assessment & Plan: suspect metabolic, or AIDS related encephalopathy , MRI of the brain ruled out any pathology (5) AIDS Assessment & Plan: patient is poorly complaint with MEDS in general and has no insight, she stopped taking HIV meds since 2016 . and now has AIDS , she was started on atovaquon for now for PJP prophylaxis pending G6PD level , but spiked fever which might be due to atovaquon , will stop it for now and monitor clinically pending G6PD level. await blood culture for MAC to rule out active disease before we start her on any prophylaxis , she will need referral to HIV specialist to start ART as soon as possible , social work job titles to assess and to help for referral and other sources . D/W mother in details the need to reestablish her HIV care with [facility] since she has been followed by them in the past . Subjective Constitutional: Reports: fever HEENT: Reports: no symptoms Respiratory: Reports: no symptoms Breasts: Reports: no symptoms Cardiovascular: Reports: no symptoms Gastrointestinal/Abdominal: Reports: no symptoms Genitourinary: Reports: no symptoms Neurologic: Reports: weakness, confusion Psychiatric: Reports: no symptoms Skin: Reports: no symptoms Endocrine: Reports: no symptoms Hematologic: Reports: no symptoms Musculoskeletal: Reports: no symptoms Allergies: Coded Allergies: SULFAMETHOXAZOLE (Verified Allergy, Unknown, 12/17/17) TRIMETHOPRIM (Verified Allergy, Unknown, 12/17/17) Objective Vital Signs Last 24 Hour Vital Signs Date Time Temp Pulse Resp B/P (MAP) Pulse Ox O2 Delivery O2 Flow Rate FiO2 12/20/17 12:00 101.7 111 24 102/63 (76) 97 101.7 12/20/17 10:59 98.3 12/20/17 10:00 102.7 12/20/17 08:50 101.0 121 23 131/82 (98) 99 101.0 12/20/17 08:00 Room Air 12/20/17 04:00 98.4 108 18 122/79 (93) 98 98.4 12/20/17 00:00 98.2 99 18 122/75 (91) 99 98.2 12/19/17 22:00 Room Air 12/19/17 20:00 99.3 107 18 108/60 (76) 97 99.3 12/19/17 16:31 102.2 Height (Feet): 5 Height (Inches): 0.00 Weight (Pounds): 109 General Appearance: WD/WN, no acute distress, cachetic HEENT: normocephalic, atraumatic, anicteric, mucous membranes moist, PERRL Respiratory/Chest: chest wall non-tender, lungs clear, normal breath sounds, no respiratory distress, no accessory muscle use, decreased breath sounds Cardiovascular: normal peripheral pulses, normal rate, regular rhythm, no gallop/murmur, no JVD Abdomen: normal bowel sounds, soft, non tender, no organomegaly, non distended , no mass, no scars Extremities: no cyanosis, no clubbing Skin: no rash, no lesions, no ulcers Neurologic/Psychiatric: alert, responsive, disoriented Lymphatic: no neck adenopathy, no groin adenopathy Microbiology Date/Time Source Procedure Growth Status 12/18/17 07:50 Nasal Nares MRSA Culture - Final NO METHICILLIN RESISTANT STAPH AUREUS... Complete 12/18/17 07:50 Rectum VRE Culture - Final Enterococcus Faecium - Vre Complete Laboratory Tests Test 12/20/17 10:55 White Blood Count 3.6 K/UL (4.8-10.8) L Red Blood Count 3.30 M/UL (4.20-5.40) L Hemoglobin 9.3 G/DL (12.0-16.0) L Hematocrit 29.6 % (37.0-47.0) L Mean Corpuscular Volume 90 FL (80-99) Mean Corpuscular Hemoglobin 28.3 PG (27.0-31.0) Mean Corpuscular Hemoglobin Concent 31.6 G/DL (32.0-36.0) L Red Cell Distribution Width 17.8 % (11.6-14.8) H Platelet Count 182 K/UL (150-450) Mean Platelet Volume 6.0 FL (6.5-10.1) L Neutrophils (%) (Auto) 81.7 % (45.0-75.0) H Lymphocytes (%) (Auto) 13.0 % (20.0-45.0) L Monocytes (%) (Auto) 4.9 % (1.0-10.0) Eosinophils (%) (Auto) 0.3 % (0.0-3.0) Basophils (%) (Auto) 0.2 % (0.0-2.0) Erythrocyte Sedimentation Rate 113 MM/HR (0-20) H Sodium Level 130 MMOL/L (136-145) L Potassium Level 4.6 MMOL/L (3.5-5.1) Chloride Level 96 MMOL/L (98-107) L Carbon Dioxide Level 28 MMOL/L (21-32) Anion Gap 7 mmol/L (5-15) Blood Urea Nitrogen 9 mg/dL (7-18) Creatinine 0.9 MG/DL (0.55-1.30) Estimat Glomerular Filtration Rate > 60 mL/min (>60) Glucose Level 120 MG/DL (74-106) H Calcium Level 8.7 MG/DL (8.5-10.1) C-Reactive Protein, Quantitative 5.5 mg/dL (0.00-0.90) H Current Medications Medications (Trade) Dose Ordered Sig/Thierno Route PRN Reason Start Time Stop Time Status Last Admin Dose Admin Acetaminophen (Tylenol) 650 mg Q6H PRN ORAL Mild Pain/Temp > 100.5 12/17/17 22:00 01/16/18 21:59 12/20/17 10:00 Atovaquone (Mepron Susp) 750 mg TWICE A DAY ORAL 12/18/17 18:00 01/17/18 17:59 12/20/17 08:11 Ceftriaxone Sodium (Rocephin) 2 gm DAILY@1500 IM 12/19/17 15:00 12/26/17 14:59 12/20/17 15:25 Dextrose/Sodium Chloride 1,000 ml @ 60 mls/hr [id number] IV 12/17/17 21:30 01/16/18 21:29 12/17/17 23:29 Lidocaine (Xylocaine 1% MPF 5ml) 4.2 ml Q24H INJ 12/19/17 16:30 01/17/18 12:59 12/20/17 15:51 Lorazepam (Ativan) 2 mg Q6H PRN ORAL For Anxiety 12/18/17 13:00 12/25/17 12:59 12/19/17 09:36 Pantoprazole (Protonix) 40 mg DAILY ORAL 12/19/17 09:00 01/18/18 08:59 12/20/17 08:10 Potassium Chloride (K-Dur) 20 meq DAILY ORAL 12/19/17 10:30 01/18/18 10:29 12/20/17 08:11 Risperidone (RisperDAL) 1 mg BID ORAL 12/18/17 14:00 01/17/18 13:59 12/20/17 08:11 Vesta Dunn M.D. Dec 20, 2017 16:27
[2017-12-20 20:00] VITALS: BP 100/63
[2017-12-21] VITALS: BP 97/62
[2017-12-21 04:00] VITALS: BP 117/75
[2017-12-21 08:00] VITALS: BP 105/67
--- NOTE | 2017-12-21 09:08 | Nephrology Progress Note ---
Assessment/Plan Assessment/Plan 1. Hypokalemia, E- ABN - corrected 2. UTI- Abx per ID 3. Dehydration- patient driking good amount of fluids - leading to mild hyponatremia. Recheck BMP in am and if Na worsened will need po fluid restriction 4. HIV/Fevers- per ID / PCP Subjective Date patient seen: Dec 21, 2017 Time patient seen: 09:06 ROS Limited/Unobtainable: No Allergies: Coded Allergies: SULFAMETHOXAZOLE (Verified Allergy, Unknown, 12/17/17) TRIMETHOPRIM (Verified Allergy, Unknown, 12/17/17) Subjective Patient without complaints Objective Last 24 Hour Vital Signs Date Time Temp Pulse Resp B/P (MAP) Pulse Ox O2 Delivery O2 Flow Rate FiO2 12/21/17 08:00 100.7 114 19 105/67 (80) 100 100.7 12/21/17 04:00 98.6 101 18 117/75 (89) 100 98.6 12/21/17 00:00 98.5 105 18 97/62 (74) 100 98.5 12/20/17 22:10 100.0 12/20/17 21:11 102.1 12/20/17 21:00 Room Air 12/20/17 20:00 102.1 112 18 100/63 (75) 97 102.1 12/20/17 16:00 99.3 96 20 102/66 (78) 97 99.3 12/20/17 12:00 101.7 111 24 102/63 (76) 97 101.7 12/20/17 10:00 102.7 Intake and Output 12/20/17 12/21/17 19:00 07:00 Intake Total 720 ml 350 ml Balance 720 ml 350 ml Intake Oral 720 ml 350 ml # Voids 5 2 Laboratory Tests 12/20/17 10:55: White Blood Count 3.6L, Red Blood Count 3.30L, Hemoglobin 9.3L, Hematocrit 29.6L , Mean Corpuscular Volume 90, Mean Corpuscular Hemoglobin 28.3, Mean Corpuscular Hemoglobin Concent 31.6L, Red Cell Distribution Width 17.8H, Platelet Count 182, Mean Platelet Volume 6.0L, Neutrophils (%) (Auto) 81.7H, Lymphocytes (%) (Auto) 13.0L, Monocytes (%) (Auto) 4.9, Eosinophils (%) (Auto) 0.3, Basophils (%) (Auto) 0.2, Erythrocyte Sedimentation Rate 113H, Sodium Level 130L, Potassium Level 4.6, Chloride Level 96L, Carbon Dioxide Level 28, Anion Gap 7, Blood Urea Nitrogen 9, Creatinine 0.9, Estimat Glomerular Filtration Rate > 60, Glucose Level 120H, Calcium Level 8.7, C-Reactive Protein , Quantitative 5.5H Height (Feet): 5 Height (Inches): 0.00 Weight (Pounds): 109 General Appearance: no apparent distress EENT: normal ENT inspection Neck: normal alignment, supple Cardiovascular: normal rate, regular rhythm Respiratory/Chest: lungs clear, normal breath sounds Abdomen: non tender, soft Edema: no edema noted Arm (L), no edema noted Arm (R), no edema noted Leg (L), no edema noted Leg (R), no edema noted Pedal (L), no edema noted Pedal (R), no edema noted Generalized Sohail Jett M.D. Dec 21, 2017 09:08
[2017-12-21 12:00] VITALS: BP 95/64
[2017-12-21 12:17] LABS: ANION GAP 10 mmol/L (5-15); BLOOD UREA NITROGEN 12 mg/dL (7-18); CALCIUM 8.9 MG/DL (8.5-10.1); CARBON DIOXIDE 28 MMOL/L (21-32); CHLORIDE 93 MMOL/L (98-107); CREATININE 0.9 MG/DL (0.55-1.30); POTASSIUM 3.9 MMOL/L (3.5-5.1); SODIUM 131 MMOL/L (136-145)
--- NOTE | 2017-12-21 15:09 | Infectious Diseases Prog Note ---
Assessment/Plan Problems: (1) Bacteremia due to Gram-negative bacteria Assessment & Plan: due to E coli from her last blood culture, now on ceftriaxon IM to finish her course of treatment for two weeks total , pending repeated blood culture, but she refused to have labs done and she refused iv line access (2) Fever Assessment & Plan: could be due to atovaquone , will monitor clinically off atovaquone pending G6PD level , continue tylenol empiric coverage , and antibiotics (3) UTI (urinary tract infection) Assessment & Plan: due to E coli, continue ceftriaxon IM pending repeated urine culture (4) Altered level of consciousness Assessment & Plan: suspect due to respiredal , and AIDS related encephalopathy , MRI of the brain ruled out any acute pathology (5) AIDS Assessment & Plan: patient is poorly complaint with MEDS in general and has no insight, she stopped taking HIV meds since 2016 . and now has AIDS , she was started on atovaquone for now for PJP prophylaxis pending G6PD level , but spiked fever which might be due to atovaquone , now off atovaquone pending G6PD level. await blood culture for MAC to rule out active disease before we start her on any prophylaxis , she will need referral to HIV specialist to start ART as soon as possible , sexual assault social worker to assess and to help for referral and other sources . D/W mother in details the need to reestablish her HIV care with [facility] since she has been followed by them in the past . Subjective ROS Limited/Unobtainable: Yes Allergies: Coded Allergies: SULFAMETHOXAZOLE (Verified Allergy, Unknown, 12/17/17) TRIMETHOPRIM (Verified Allergy, Unknown, 12/17/17) Subjective she was altered and unresponsive after she received respiredal , able to wake up and make eye contact , nonverbal Objective Vital Signs Last 24 Hour Vital Signs Date Time Temp Pulse Resp B/P (MAP) Pulse Ox O2 Delivery O2 Flow Rate FiO2 12/21/17 12:00 98.1 111 19 95/64 (74) 100 98.1 12/21/17 10:29 99.6 12/21/17 09:30 100.7 12/21/17 09:00 Room Air 12/21/17 08:00 100.7 114 19 105/67 (80) 100 100.7 12/21/17 04:00 98.6 101 18 117/75 (89) 100 98.6 12/21/17 00:00 98.5 105 18 97/62 (74) 100 98.5 12/20/17 21:11 102.1 12/20/17 21:00 Room Air 12/20/17 20:00 102.1 112 18 100/63 (75) 97 102.1 12/20/17 16:00 99.3 96 20 102/66 (78) 97 99.3 Height (Feet): 5 Height (Inches): 0.00 Weight (Pounds): 109 General Appearance: WD/WN, no acute distress, cachetic HEENT: normocephalic, atraumatic, anicteric, mucous membranes moist, PERRL Respiratory/Chest: chest wall non-tender, lungs clear, normal breath sounds, no respiratory distress, no accessory muscle use Cardiovascular: normal peripheral pulses, normal rate, regular rhythm, no gallop/murmur, no JVD Abdomen: normal bowel sounds, soft, non tender, no organomegaly, non distended , no mass, no scars Extremities: no cyanosis, no clubbing Skin: no rash, no lesions, no ulcers Neurologic/Psychiatric: disoriented, unresponsiveness Lymphatic: no neck adenopathy, no groin adenopathy Laboratory Tests Test 12/21/17 00:52 Sodium Level 131 MMOL/L (136-145) L Potassium Level 3.9 MMOL/L (3.5-5.1) Chloride Level 93 MMOL/L (98-107) L Carbon Dioxide Level 28 MMOL/L (21-32) Anion Gap 10 mmol/L (5-15) Blood Urea Nitrogen 12 mg/dL (7-18) Creatinine 0.9 MG/DL (0.55-1.30) Estimat Glomerular Filtration Rate > 60 mL/min (>60) Glucose Level 136 MG/DL (74-106) H Calcium Level 8.9 MG/DL (8.5-10.1) Current Medications Medications (Trade) Dose Ordered Sig/Thierno Route PRN Reason Start Time Stop Time Status Last Admin Dose Admin Acetaminophen (Tylenol) 650 mg Q6H PRN ORAL Mild Pain/Temp > 100.5 12/17/17 22:00 01/16/18 21:59 12/21/17 09:30 Ceftriaxone Sodium (Rocephin) 2 gm DAILY@1500 IM 7/12/18 15:00 12/26/17 14:59 12/20/17 15:25 Lidocaine (Xylocaine 1% MPF 5ml) 4.2 ml Q24H INJ 12/19/17 16:30 01/17/18 12:59 12/20/17 15:51 Lorazepam (Ativan) 2 mg Q6H PRN ORAL For Anxiety 12/18/17 13:00 12/25/17 12:59 12/19/17 09:36 Pantoprazole (Protonix) 40 mg DAILY ORAL 12/19/17 09:00 01/18/18 08:59 12/21/17 09:29 Potassium Chloride (K-Dur) 20 meq DAILY ORAL 12/19/17 10:30 01/18/18 10:29 12/21/17 09:29 Risperidone (RisperDAL) 2 mg BID ORAL 12/21/17 09:00 01/20/18 08:59 12/21/17 09:29 Vesta Dunn M.D. Dec 21, 2017 15:09
[2017-12-21 16:00] VITALS: BP 105/73
[2017-12-21] MEDS: Lidocaine 1% MPF 10mg/ml 5ml INJ SCH (16:38)
[2017-12-21 20:00] VITALS: BP 119/74
[2017-12-22] VITALS: BP 98/64
[2017-12-22 04:36] VITALS: BP 121/74
[2017-12-22 08:00] VITALS: BP 93/61
[2017-12-22 09:00] LABS: ANION GAP 13 mmol/L (5-15); BLOOD UREA NITROGEN 9 mg/dL (7-18); CALCIUM 8.7 MG/DL (8.5-10.1); CARBON DIOXIDE 25 MMOL/L (21-32); CHLORIDE 95 MMOL/L (98-107); SODIUM 133 MMOL/L (136-145)
--- NOTE | 2017-12-22 10:14 | Nephrology Progress Note ---
Assessment/Plan Assessment/Plan 1. Hypokalemia - corrected 2. UTI- Abx per ID 3. Hyponatremia- mild at 133. Monitor for now. May need to restrict water intake 4. HIV/Fevers- per ID / PCP Subjective Date patient seen: Dec 22, 2017 Time patient seen: 10:13 ROS Limited/Unobtainable: No Allergies: Coded Allergies: SULFAMETHOXAZOLE (Verified Allergy, Unknown, 12/17/17) TRIMETHOPRIM (Verified Allergy, Unknown, 12/17/17) Subjective Patient without complaints resting well Objective Last 24 Hour Vital Signs Date Time Temp Pulse Resp B/P (MAP) Pulse Ox O2 Delivery O2 Flow Rate FiO2 12/22/17 09:00 Room Air 12/22/17 08:00 97.9 115 19 93/61 (72) 100 97.9 12/22/17 06:57 98.7 12/22/17 06:54 98.7 98.7 12/22/17 05:58 100.5 12/22/17 04:36 100.5 102 20 121/74 (90) 100 100.5 12/22/17 00:00 98.8 87 18 98/64 (75) 100 98.8 12/21/17 21:17 Room Air 12/21/17 21:05 100.7 12/21/17 20:00 100.7 112 19 119/74 (89) 98 100.7 12/21/17 16:00 98.3 102 19 105/73 (84) 100 98.3 12/21/17 12:00 98.1 111 19 95/64 (74) 100 98.1 Intake and Output 12/21/17 12/22/17 19:00 07:00 Intake Total 800 ml 900 ml Balance 800 ml 900 ml Intake Oral 800 ml 900 ml # Voids 3 4 # Bowel Movements 1 Laboratory Tests 12/22/17 06:40: Sodium Level 133L, Potassium Level 4.0, Chloride Level 95L, Carbon Dioxide Level 25, Anion Gap 13, Blood Urea Nitrogen 9, Creatinine 1.0, Estimat Glomerular Filtration Rate > 60, Glucose Level 160H, Calcium Level 8.7 Height (Feet): 5 Height (Inches): 0.00 Weight (Pounds): 109 General Appearance: WD/WN, no apparent distress EENT: normal ENT inspection Neck: normal alignment, supple Cardiovascular: normal rate, regular rhythm Respiratory/Chest: chest wall non-tender, lungs clear, normal breath sounds Edema: no edema noted Arm (L), no edema noted Arm (R), no edema noted Leg (L), no edema noted Leg (R), no edema noted Pedal (L), no edema noted Pedal (R), no edema noted Generalized Sohail Jett M.D. Dec 22, 2017 10:14
[2017-12-22 12:00] VITALS: BP 107/73
--- NOTE | 2017-12-22 12:49 | General Progress Note ---
Assessment/Plan Assessment/Plan S: I want to go home O: appears comfortable, Denies any sob or chest pain . PHYSICAL EXAMINATION: HEAD AND NECK: Atraumatic and normocephalic. CHEST: Clear to auscultation. No wheezes, no crackles. HEART: S1 and S2. Tachycardic. Negative for S3. Negative for S4. ABDOMEN: Soft. No organomegaly. MUSCULOSKELETAL: No gross lateralized motor deficit. NEUROLOGIC: The patient is awake, alert, and oriented x3. LABORATORY DATA: reviewed in the chart meds: reviewed and reconciled ASSESSMENT: 1. Dehydration 2. UTI. 3. HIV - CD 4 less than 100 4. Hypokalemia. 5. Severe anemia. 6. GI and DVT prophylaxis. 7. Non compliance and refusal of medication 8. Fever Plan: Persistent low grade fever Blood culture, ESR, CRP and echo are ordered Refusal of Blood draw. Negative Blood cultures so far Subjective Allergies: Coded Allergies: SULFAMETHOXAZOLE (Verified Allergy, Unknown, 12/17/17) TRIMETHOPRIM (Verified Allergy, Unknown, 12/17/17) Objective Last 24 Hour Vital Signs Date Time Temp Pulse Resp B/P (MAP) Pulse Ox O2 Delivery O2 Flow Rate FiO2 12/22/17 09:00 Room Air 12/22/17 08:00 97.9 115 19 93/61 (72) 100 97.9 12/22/17 06:57 98.7 12/22/17 06:54 98.7 98.7 12/22/17 05:58 100.5 12/22/17 04:36 100.5 102 20 121/74 (90) 100 100.5 12/22/17 00:00 98.8 87 18 98/64 (75) 100 98.8 12/21/17 21:17 Room Air 12/21/17 21:05 100.7 12/21/17 20:00 100.7 112 19 119/74 (89) 98 100.7 12/21/17 16:00 98.3 102 19 105/73 (84) 100 98.3 Intake and Output 12/21/17 12/22/17 19:00 07:00 Intake Total 800 ml 900 ml Balance 800 ml 900 ml Intake Oral 800 ml 900 ml # Voids 3 4 # Bowel Movements 1 Laboratory Tests 12/22/17 06:40: Sodium Level 133L, Potassium Level 4.0, Chloride Level 95L, Carbon Dioxide Level 25, Anion Gap 13, Blood Urea Nitrogen 9, Creatinine 1.0, Estimat Glomerular Filtration Rate > 60, Glucose Level 160H, Calcium Level 8.7 Height (Feet): 5 Height (Inches): 0.00 Weight (Pounds): 109 Padmini Jeffery MD Dec 22, 2017 12:48
--- NOTE | 2017-12-22 13:14 | Cardiology Report ---
APPROVED REPORT EXAM: Two-dimensional and M-mode echocardiogram with Doppler and color Doppler. INDICATION Palpitations M-Mode DIMENSIONS IVSd1.6 (0.7-1.1cm)Left Atrium (MM)2.6 (1.6-4.0cm) LVDd4.4 (3.5-5.6cm)Aortic Root2.6 (2.0-3.7cm) PWd1.0 (0.7-1.1cm)Aortic Cusp Exc.2.0 (1.5-2.0cm) LVDs2.6 (2.5-4.0cm) PWs1.8 cm Technically difficult and limited study due to breast augmentation. Study quality precludes accurate assessment of regional wall motion. Normal left ventricular chamber size, systolic function and wall motion to extent visualized. Left ventricular ejection fraction estimated to be 55 %. Mild left ventricular hypertrophy. No evidence of pericardial effusion. All other cardiac chamber sizes are within normal limits. Focal aortic valve sclerosis with adequate cusp excursion. Mildly thickened mitral valve leaflets with normal excursion. Mild mitral annulus and aortic root calcification. Pulmonic valve not visualized. Normal tricuspid valve structure. IVC is normal in size with physiological collapse. A color flow and spectral Doppler study was performed and revealed: No aortic insufficiency. No mitral regurgitation. reduced left ventricular relaxation c/w impaired relaxation diastolic dysfunction. No tricuspid regurgitation. Tricuspid systolic velocities suggests peak right ventricular systolic pressure of 8 mmHg.
--- NOTE | 2017-12-22 13:54 | Cardiology Progress Note ---
Assessment/Plan Assessment/Plan The patient is seen and examined, full consult note will be dictated. Objective Last 24 Hour Vital Signs Date Time Temp Pulse Resp B/P (MAP) Pulse Ox O2 Delivery O2 Flow Rate FiO2 12/22/17 12:00 98.4 94 18 107/73 (84) 100 98.4 12/22/17 09:00 Room Air 12/22/17 08:00 97.9 115 19 93/61 (72) 100 97.9 12/22/17 06:57 98.7 12/22/17 06:54 98.7 98.7 12/22/17 05:58 100.5 12/22/17 04:36 100.5 102 20 121/74 (90) 100 100.5 12/22/17 00:00 98.8 87 18 98/64 (75) 100 98.8 12/21/17 21:17 Room Air 12/21/17 21:05 100.7 12/21/17 20:00 100.7 112 19 119/74 (89) 98 100.7 12/21/17 16:00 98.3 102 19 105/73 (84) 100 98.3 Intake and Output 12/21/17 12/22/17 19:00 07:00 Intake Total 800 ml 900 ml Balance 800 ml 900 ml Intake Oral 800 ml 900 ml # Voids 3 4 # Bowel Movements 1 Laboratory Tests Test 12/22/17 06:40 Sodium Level 133 MMOL/L (136-145) L Potassium Level 4.0 MMOL/L (3.5-5.1) Chloride Level 95 MMOL/L (98-107) L Carbon Dioxide Level 25 MMOL/L (21-32) Anion Gap 13 mmol/L (5-15) Blood Urea Nitrogen 9 mg/dL (7-18) Creatinine 1.0 MG/DL (0.55-1.30) Estimat Glomerular Filtration Rate > 60 mL/min (>60) Glucose Level 160 MG/DL (74-106) H Calcium Level 8.7 MG/DL (8.5-10.1) Microbiology Date/Time Source Procedure Growth Status 12/20/17 10:55 Blood Blood Culture - Preliminary NO GROWTH AFTER 24 HOURS Resulted 12/20/17 10:30 Blood Blood Culture - Preliminary NO GROWTH AFTER 24 HOURS Resulted Ander Gallardo MD Dec 22, 2017 13:54
[2017-12-22 16:00] VITALS: BP 118/73
[2017-12-22] MEDS: Lidocaine 1% MPF 10mg/ml 5ml INJ SCH (16:57)
[2017-12-22 20:00] VITALS: BP 108/75
--- NOTE | 2017-12-22 23:59 | General Progress Note ---
Assessment/Plan Assessment/Plan Schizophrenia Agitation risperdal 2mg po bid haldol dec 50mg x 1 time. Subjective Allergies: Coded Allergies: SULFAMETHOXAZOLE (Verified Allergy, Unknown, 12/17/17) TRIMETHOPRIM (Verified Allergy, Unknown, 12/17/17) Subjective the pt is hallucinating . agreed to labs/xray Objective Last 24 Hour Vital Signs Date Time Temp Pulse Resp B/P (MAP) Pulse Ox O2 Delivery O2 Flow Rate FiO2 12/22/17 21:00 Room Air 12/22/17 20:00 99.3 114 18 108/75 (86) 100 99.3 12/22/17 18:35 101.7 12/22/17 17:36 101.8 12/22/17 16:00 101.8 118 20 118/73 (88) 100 101.8 12/22/17 12:00 98.4 94 18 107/73 (84) 100 98.4 12/22/17 09:00 Room Air 12/22/17 08:00 97.9 115 19 93/61 (72) 100 97.9 12/22/17 06:54 98.7 98.7 12/22/17 05:58 100.5 12/22/17 04:36 100.5 102 20 121/74 (90) 100 100.5 12/22/17 00:00 98.8 87 18 98/64 (75) 100 98.8 Intake and Output 12/21/17 12/22/17 19:00 07:00 Intake Total 800 ml 900 ml Balance 800 ml 900 ml Intake Oral 800 ml 900 ml # Voids 3 4 # Bowel Movements 1 Laboratory Tests 12/22/17 06:40: Sodium Level 133L, Potassium Level 4.0, Chloride Level 95L, Carbon Dioxide Level 25, Anion Gap 13, Blood Urea Nitrogen 9, Creatinine 1.0, Estimat Glomerular Filtration Rate > 60, Glucose Level 160H, Calcium Level 8.7, Blastomyces Ab Immunodiffusion [Pending], Coccidioides Antibody (Comp Fix) [ Pending] Height (Feet): 5 Height (Inches): 0.00 Weight (Pounds): 109 Wesley Pérez MD Dec 22, 2017 23:59
[2017-12-23] VITALS: BP 96/58
[2017-12-23 04:00] VITALS: BP 122/79
[2017-12-23 08:00] VITALS: BP 106/70
[2017-12-23] MEDS ORDERED: Fluconazole 100mg tab ORAL SCH (09:00)
[2017-12-23 09:10] LABS: ANION GAP 13 mmol/L (5-15); BLOOD UREA NITROGEN 8 mg/dL (7-18); CALCIUM 8.7 MG/DL (8.5-10.1); CARBON DIOXIDE 24 MMOL/L (21-32); CHLORIDE 95 MMOL/L (98-107); CREATININE 0.8 MG/DL (0.55-1.30); POTASSIUM 3.9 MMOL/L (3.5-5.1); SODIUM 132 MMOL/L (136-145)
[2017-12-23 12:00] VITALS: BP 114/62
--- NOTE | 2017-12-23 12:40 | General Progress Note ---
Assessment/Plan Assessment/Plan S: I want to go home O: appears comfortable, Denies any sob or chest pain . PHYSICAL EXAMINATION: HEAD AND NECK: Atraumatic and normocephalic. CHEST: Clear to auscultation. No wheezes, no crackles. HEART: S1 and S2. Tachycardic. Negative for S3. Negative for S4. ABDOMEN: Soft. No organomegaly. MUSCULOSKELETAL: No gross lateralized motor deficit. NEUROLOGIC: The patient is awake, alert, and oriented x3. LABORATORY DATA: reviewed in the chart meds: reviewed and reconciled, including Diflucan ASSESSMENT: 1. Dehydration 2. UTI. 3. HIV - CD 4 less than 100 4. Hypokalemia. 5. Severe anemia. 6. GI and DVT prophylaxis. 7. Non compliance and refusal of medication 8. Fever Plan: Persistent low grade fever Refusal of Blood draw. Negative Blood cultures so far ok to followup as an outpatient with out patient follows, as she has still Spikes of fever with unremarkable workup Subjective Allergies: Coded Allergies: SULFAMETHOXAZOLE (Verified Allergy, Unknown, 12/17/17) TRIMETHOPRIM (Verified Allergy, Unknown, 12/17/17) Objective Last 24 Hour Vital Signs Date Time Temp Pulse Resp B/P (MAP) Pulse Ox O2 Delivery O2 Flow Rate FiO2 12/23/17 09:00 Room Air 12/23/17 08:00 98.2 119 20 106/70 (82) 100 98.2 12/23/17 04:00 99.8 100 18 122/79 (93) 100 99.8 12/23/17 00:00 98.2 92 18 96/58 (71) 100 98.2 12/22/17 21:00 Room Air 12/22/17 20:00 99.3 114 18 108/75 (86) 100 99.3 12/22/17 18:35 101.7 12/22/17 17:36 101.8 12/22/17 16:00 101.8 118 20 118/73 (88) 100 101.8 Intake and Output 12/22/17 12/23/17 19:00 07:00 Intake Total 1000 ml 800 ml Balance 1000 ml 800 ml Intake Oral 1000 ml 800 ml # Voids 4 3 Laboratory Tests 12/23/17 06:00: Histoplasma Antigen [Pending] 12/23/17 08:00: Sodium Level 132L, Potassium Level 3.9, Chloride Level 95L, Carbon Dioxide Level 24, Anion Gap 13, Blood Urea Nitrogen 8, Creatinine 0.8, Estimat Glomerular Filtration Rate > 60, Glucose Level 151H, Calcium Level 8.7 Height (Feet): 5 Height (Inches): 0.00 Weight (Pounds): 109 Padmini Jeffery MD Dec 23, 2017 12:40
[2017-12-23] MEDS: Lidocaine 1% MPF 10mg/ml 5ml INJ SCH (15:53)
[2017-12-23 16:00] VITALS: BP 110/74
--- NOTE | 2017-12-23 16:19 | General Progress Note ---
Assessment/Plan Assessment/Plan Schizophrenia Agitation risperdal 2mg po bid haldol dec 50mg x 1 time. cleared from psych given the script Subjective Date patient seen: Dec 23, 2017 Neurologic/Psychiatric: Reports: anxiety, depressed, emotional problems Allergies: Coded Allergies: SULFAMETHOXAZOLE (Verified Allergy, Unknown, 12/17/17) TRIMETHOPRIM (Verified Allergy, Unknown, 12/17/17) Subjective the pt is hallucinating . not si/hi Objective Last 24 Hour Vital Signs Date Time Temp Pulse Resp B/P (MAP) Pulse Ox O2 Delivery O2 Flow Rate FiO2 12/23/17 09:00 Room Air 12/23/17 08:00 98.2 119 20 106/70 (82) 100 98.2 12/23/17 04:00 99.8 100 18 122/79 (93) 100 99.8 12/23/17 00:00 98.2 92 18 96/58 (71) 100 98.2 12/22/17 21:00 Room Air 12/22/17 20:00 99.3 114 18 108/75 (86) 100 99.3 12/22/17 18:35 101.7 12/22/17 17:36 101.8 Intake and Output 12/22/17 12/23/17 19:00 07:00 Intake Total 1000 ml 800 ml Balance 1000 ml 800 ml Intake Oral 1000 ml 800 ml # Voids 4 3 Laboratory Tests 12/23/17 06:00: Histoplasma Antigen [Pending] 12/23/17 08:00: Sodium Level 132L, Potassium Level 3.9, Chloride Level 95L, Carbon Dioxide Level 24, Anion Gap 13, Blood Urea Nitrogen 8, Creatinine 0.8, Estimat Glomerular Filtration Rate > 60, Glucose Level 151H, Calcium Level 8.7 Height (Feet): 5 Height (Inches): 0.00 Weight (Pounds): 109 Wesley Pérez MD Dec 23, 2017 16:19
[2017-12-23] MEDS ORDERED: CEPHALEXIN500 MG ORAL (18:37)
[2017-12-23] MEDS ORDERED: FLUCONAZOLE100 MG ORAL (18:38)
[2017-12-23] MEDS ORDERED: RISPERDAL2 MG ORAL (18:46)
[2017-12-23] MEDS ORDERED: RISPERDAL1 MG PO (18:50)
[2017-12-23 19:00] VITALS: BP 115/78
--- NOTE | 2017-12-25 11:53 | Discharge Summary ---
Discharge Summary Discharge Summary _ DATE OF ADMISSION: 12/17/2017 DATE OF DISCHARGE: 12/23/2017 REASON FOR ADMISSION: 47 years old -[place] female with past medical history significant for HIV/AIDS, cytomegalovirus, schizophrenia, recent E coli bacteremia due to UTI , left hospital AGAINST MEDICAL ADVICE day prior to arrival to emergency room. She presented to emergency department with c/o imbalance. She denied nausea and vomiting. She denied diarrhea or constipation. She reported fever, chills,she denied any abnormal bleeding. MRI of the brain revealed no acute intracranial pathology. WBC 4.0 ,hemoglobin 9.6 hematocrit 31.4 .ESR 113. Last CD4 count placed her at AIDS category. Patient admitted with diagnosis of dehydration, urinary tract infection, HIV/ AIDS, hypokalemia, severe anemia CONSULTANTS: arc welder Sami Patterson ID specialist diamond die maker Dr.De Hugo psychiatrist after [facility] COURSE: Patient admitted. Patient started on IV hydration.\ Colorer Machine closely followed. Renal parameters and electrolytes were closely monitored, hypokalemia corrected. Nephrotoxins were avoided . Renal parameters remained stable. Infectious disease specialist closely followed. Patient had prior positive blood culture with Escherichia coli secondary to urinary tract infection with Escherichia coli. Patient was on antibiotic . Repeated blood culture were preliminarily negative, however patient refused the IV access and was given antibiotic intramuscularly . According to infectious disease specialist, patient needed to complete the course for bacteremia. Patient was poorly complaint with medications in general and had no insight. She stopped taking HIV medications since 2016 . T cell subset on previous admission with extremely low CD4 count, placing her in AIDS category and high viral load. She was started on atovaquone for PJP prophylaxis by ID specialist ( since allergic to Bactrim) , pending G6PD level , but spiked fever which might have been due to atovaquone . She was taken off atovaquone Pending G6PD level and blood culture for MAC to rule out active disease , before start on any prophylaxis . Patient will need to follow up with HIV specialist to start ART as soon as possible, which was discussed with her family in detail. She needs to reestablish her HIV care with [facility] since she had been followed by them in the past . Hemoglobin and hematocrit were closely monitored with goal to keep hemoglobin above 7, no need for transfusion. Nutritional supplements provided. Altered mental status was likely secondary to AIDS-related encephalopathy , since MRI of the brain revealed no acute intracranial pathology. Psychiatrist seen and evaluated the patient , diagnosed patient i with schizophrenia and agitation , and optimized psychiatric medication regimen. Reality orientation and supportive therapy provided. Patient [facility] . However later it was decided that the patient will be going to [facility] for further management of psychiatric disorder. 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 DISCHARGE INSTRUCTIONS: Patient was discharged home accompanied by family. Patient will be going to [facility] for further management I have been assigned to dictate discharge summary for this account. I was not involved in the patient's management. Iraida Arteaga NP Dec 25, 2017 11:53
--- NOTE | 2018-01-21 10:55 | Consultation ---
DATE OF CONSULTATION: 12/22/2017 CARDIOLOGY CONSULTATION CONSULTING PHYSICIAN: Ander Gallardo M.D. REFERRING PHYSICIAN: Padmini Jeffery M.D. REASON FOR CONSULTATION: Management of tachycardia. HISTORY OF PRESENT ILLNESS: The patient is a very unfortunate 47-year-old female, who presents to the emergency department and complains of gait imbalance as well as severe sore throat. She is HIV positive. She had just left this hospital today against medical advice after she had a CAT scan. At the time of arrival to emergency department, she denied any chest pain or shortness of breath. Her initial vital signs showed blood pressure of 144/92 mmHg and heart rate of 100. A 12-lead electrocardiogram done in the emergency department was significant for sinus tachycardia. The patient was admitted to the telemetry. Her sinus tachycardia was believed to be due to intravascular volume depletion. The patient's blood pressure was stable prior to her leaving against medical advice. PAST MEDICAL HISTORY: 1. HIV disease and AIDS. 2. CMV. 3. Noncompliance with medication. 4. Schizophrenia. PAST SURGICAL HISTORY: None. MEDICATIONS: Including Tivicay, Truvada, Zithromax, cephalexin, Truform compressive stockings, fluconazole, Levaquin, and Risperdal. ALLERGIES: To sulfamethoxazole and trimethoprim. SOCIAL HISTORY: Homeless. Lives with her who is depressed. Reports alcohol use, but there is no history of tobacco or illicit drug use. FAMILY HISTORY: No premature coronary artery disease or arrhythmogenic in the first-degree relatives. REVIEW OF SYSTEMS: A 12-system review done essentially negative except what was mentioned in history of present illness. PHYSICAL EXAMINATION: GENERAL: The patient is a very unfortunate 47-year-old female, in no apparent respiratory distress. Alert and oriented x4. VITAL SIGNS: Blood pressure is 144/92, pulse of 100, respirations 18, O2 saturation 100% on room air, and temperature 98.1 degrees Fahrenheit. HEENT: Atraumatic and normocephalic. Anicteric. Pupils are equal, round, and reactive to light and accommodation. Extraocular muscles intact. NECK: JVP less than 5 cm. No carotid bruits. Carotid upstrokes 2+ bilaterally. CARDIOVASCULAR SYSTEM: Normal S1 and S2. Tachycardic. Regular rhythm. No murmurs, gallops, or rubs. LUNGS: Clear to auscultation bilaterally. ABDOMEN: Soft, nontender, nondistended. No hepatosplenomegaly. Positive bowel sounds. EXTREMITIES: No evidence of edema, clubbing, or cyanosis. LABORATORY AND DIAGNOSTIC FINDINGS: WBC was 4.0, hemoglobin 9.6, hematocrit 31.4, and platelet count is 269,000. Sodium 137, potassium 3.3, chloride 99, bicarbonate 29, BUN 7, creatinine 0.7, and glucose 85. Calcium 9.0. Chest x-ray shows no acute cardiopulmonary disease. ASSESSMENT AND PLAN: 1. Sinus tachycardia, most likely secondary to volume depletion. Continue with hydration. Pain control. 2. History of HIV/AIDS. 3. History of protein-calorie malnutrition. 4. History of CMV. 5. History of psychiatric disorder. 6. History of dysphagia. I would like to thank, Dr. Jeffery, for allowing me to participate in the care of this patient. Ander Gallardo M.D. DR: KRISTYN JOB#: [id number] CC:
== END 2017-12-23 21:10 | disposition home or self-care (01) | DRG 892 ==
LOC: EMR 14:10 → 4E 18:20 → EDBEDREQ 20:03 → 4E 12-18 18:42
DX: E86.0 Dehydration (principal); B20 Human immunodeficiency virus [HIV] disease; G93.49 Other encephalopathy; E87.6 Hypokalemia; F20.9 Schizophrenia, unspecified; D64.9 Anemia, unspecified; N39.0 Urinary tract infection, site not specified; Z91.14 Patient's other noncompliance with medication regimen; Z91.19 Patient's noncompliance with other medical treatment and regimen; Z88.2 Allergy status to sulfonamides; Z88.1 Allergy status to other antibiotic agents; Z59.0 Homelessness; R45.1 Restlessness and agitation; B96.20 Unspecified Escherichia coli [E. coli] as the cause of diseases classified elsewhere
CPT/HCPCS: 36415; 70551; 71045; 72170; 80048; 80053; 81001; 84484; 85025; 85651; 86140; 86612; 86635; 87040; 87081; 87116; 87385; 93306; 99285; J8499

== ENCOUNTER 2017-12-31 16:17 | Inpatient (IN) | payer MEDICAID ==
[~2017-12-31] VITALS: Ht 157.5 cm; Wt 47.6 kg
[2017-12-31 16:17] VITALS: BP 112/71
[~2017-12-31 16:17] MED LIST changes: +RISPERDAL1 MG PO; +RISPERDAL2 MG ORAL; +UNOBMED
[2017-12-31] MEDS ORDERED: Acetaminophen 500mg (ES) tab ORAL ONE (17:15)
[2017-12-31 17:27] LABS: BASOPHILS % (AUTO) 0.4 % (0.0-2.0); EOSINOPHILS % (AUTO) 4.8 % (0.0-3.0); HEMOGLOBIN 9.2 G/DL (12.0-16.0); LYMPHOCYTES % (AUTO) 7.5 % (20.0-45.0); MEAN CORPUSCULAR VOLUME 91 FL (80-99); MONOCYTES % (AUTO) 5.1 % (1.0-10.0); NEUTROPHILS % (AUTO) 82.2 % (45.0-75.0); PLATELET COUNT 252 K/UL (150-450); RED BLOOD COUNT 3.19 M/UL (4.20-5.40); WHITE BLOOD COUNT 7.2 K/UL (4.8-10.8)
[2017-12-31 17:29] LABS: APPEARANCE,URINE CLEAR; BILIRUBIN, URINE NEGATIVE (NEGATIVE); GLUCOSE, URINE (UA) NEGATIVE (NEGATIVE); KETONES,URINE NEGATIVE (NEGATIVE); LEUKOCYTE ESTERASE ,URINE NEGATIVE (NEGATIVE); NITRITE,URINE NEGATIVE (NEGATIVE); PH,URINE 6 (4.5-8.0); PROTEIN,URINE 2+ (NEGATIVE); UROBILINOGEN,URINE NORMAL MG/DL (0.0-1.0)
[2017-12-31 17:31] LABS: COLOR,URINE YELLOW
[2017-12-31 17:32] LABS: ANION GAP 11 mmol/L (5-15); BLOOD UREA NITROGEN 7 mg/dL (7-18); CALCIUM 9.1 MG/DL (8.5-10.1); CARBON DIOXIDE 24 MMOL/L (21-32); CHLORIDE 98 MMOL/L (98-107); CREATININE 0.8 MG/DL (0.55-1.30); POTASSIUM 3.9 MMOL/L (3.5-5.1); SODIUM 133 MMOL/L (136-145)
[2017-12-31 17:45] LABS: ALANINE AMINOTRANSFERASE 47 U/L (12-78); ALBUMIN 2.9 G/DL (3.4-5.0); ALBUMIN/GLOBULIN RATIO 0.5 (1.0-2.7); ALKALINE PHOSPHATASE 94 U/L (46-116); ASPARTATE AMINO TRANSFERASE 51 U/L (15-37); BILIRUBIN,TOTAL 0.3 MG/DL (0.2-1.0); CKMB < 0.5 NG/ML (0.0-3.6); CREATINE KINASE 69 U/L (26-308); PHOSPHORUS 2.7 MG/DL (2.5-4.9)
[2017-12-31 18:14] VITALS: BP 116/67
--- NOTE | 2017-12-31 21:04 | Emergency Room Report ---
History of Present Illness General Chief Complaint: Fever Source: Patient, Medical Record, EMS Present Illness HPI This patient has a known history of HIV and HIV encephalopathy. She is recently admitted here to [facility] for encephalopathy. She is HIV and meets AIDS criteria. Her workup was unremarkable at that time to include MRI of her brain. She is brought in by EMS for heat injury. Apparently she was laying out in the sun. She reports that she enjoys the heat and the sun and she laid down on the sidewalk to get some heat and sun. She states that some people maybe thought she was crazy and that's why they called the ambulance. EMS report that her temp was 102. The patient herself has no complaints. Allergies: Coded Allergies: SULFAMETHOXAZOLE (Verified Allergy, Unknown, 12/17/17) TRIMETHOPRIM (Verified Allergy, Unknown, 12/17/17) Patient History Past Medical History: see triage record, HIV, other Social History: Denies: smoking, alcohol use, drug use Last Menstrual Period: unknown Now: No Reviewed Nursing Documentation: PMH: Agreed; PSxH: Agreed Nursing Documentation-PMH Hx Cardiac Problems: No Hx Cancer: No Hx Gastrointestinal Problems: No Hx Neurological Problems: Yes Hx Head Trauma: Yes Review of Systems All Other Systems: negative except mentioned in HPI Physical Exam Vital Signs Date Time Temp Pulse Resp B/P (MAP) Pulse Ox O2 Delivery O2 Flow Rate FiO2 12/31/17 16:03 103.0 130 18 113/74 99 Room Air 102.9 Sp02 EP Interpretation: reviewed, normal General Appearance: no apparent distress, alert, GCS 15, non-toxic Head: normocephalic, atraumatic Eyes: bilateral eye normal inspection, bilateral eye PERRL ENT: hearing grossly normal, normal pharynx, no angioedema, normal voice Neck: full range of motion, supple/symm/no masses Respiratory: chest non-tender, lungs clear, normal breath sounds, no respiratory distress, no retraction, no accessory muscle use, speaking full sentences Cardiovascular #1: regular rate, rhythm, no edema Gastrointestinal: normal bowel sounds, non tender, soft, non-distended, no guarding, no rebound Rectal: deferred Musculoskeletal: back normal, normal range of motion, non-tender, other - short , shuffling gait Neurologic: alert, responsive, motor strength/tone normal, sensory intact, speech normal, grossly normal Psychiatric: memory normal, mood/affect normal, no suicidal/homicidal ideation , other - no hallucinations Skin: normal color, no rash, warm/dry, well hydrated Medical Decision Making Diagnostic Impression: Primary Impression: Heat collapse Additional Impression: Encephalopathy ER Course This patient has heat injury. The patient has a baseline encephalopathy. She is not hallucinating and is speaking appropriately. The patient's heat workup today is unremarkable. There does not appear to be any significant injury. On arrival she did have a temp of 102.9. She was given cool IV fluids and ice was placed on her body. She had resolution of her elevated temp. She was appropriate and able to give me her sister's cell phone number. She was eating and walking around and nontoxic. Her sister was contacted because I do not feel that this patient is functional enough to care for herself for her activities of daily living. Unfortunately, the sister did not answer the phone or return any voice mail messages. The patient did not have her cell phone to obtain her other family members contact numbers. This patient is gravely disabled and cannot be discharged on her own. She needs close monitoring by either a healthcare worker or a family member. I cannot just discharged this patient under the street as she is not mentally capable to care for herself at baseline. Although she does not have any acute medical condition at this time, she will be admitted for being gravely disabled. Laboratory Tests Test 12/31/17 16:28 12/31/17 16:50 White Blood Count 7.2 K/UL (4.8-10.8) Red Blood Count 3.19 M/UL (4.20-5.40) L Hemoglobin 9.2 G/DL (12.0-16.0) L Hematocrit 29.0 % (37.0-47.0) L Mean Corpuscular Volume 91 FL (80-99) Mean Corpuscular Hemoglobin 28.7 PG (27.0-31.0) Mean Corpuscular Hemoglobin Concent 31.6 G/DL (32.0-36.0) L Red Cell Distribution Width 19.0 % (11.6-14.8) H Platelet Count 252 K/UL (150-450) Mean Platelet Volume 5.8 FL (6.5-10.1) L Neutrophils (%) (Auto) 82.2 % (45.0-75.0) H Lymphocytes (%) (Auto) 7.5 % (20.0-45.0) L Monocytes (%) (Auto) 5.1 % (1.0-10.0) Eosinophils (%) (Auto) 4.8 % (0.0-3.0) H Basophils (%) (Auto) 0.4 % (0.0-2.0) Sodium Level 133 MMOL/L (136-145) L Potassium Level 3.9 MMOL/L (3.5-5.1) Chloride Level 98 MMOL/L (98-107) Carbon Dioxide Level 24 MMOL/L (21-32) Anion Gap 11 mmol/L (5-15) Blood Urea Nitrogen 7 mg/dL (7-18) Creatinine 0.8 MG/DL (0.55-1.30) Estimate Glomerular Filtration Rate > 60 mL/min (>60) Glucose Level 97 MG/DL (74-106) Lactic Acid Level 1.00 mmol/L (0.4-2.0) Calcium Level 9.1 MG/DL (8.5-10.1) Phosphorus Level 2.7 MG/DL (2.5-4.9) Magnesium Level 1.6 MG/DL (1.8-2.4) L Total Bilirubin 0.3 MG/DL (0.2-1.0) Aspartate Amino Transferase (AST) 51 U/L (15-37) H Alanine Aminotransferase (ALT) 47 U/L (12-78) Alkaline Phosphatase 94 U/L (46-116) Total Creatine Kinase 69 U/L (26-308) Creatine Kinase MB < 0.5 NG/ML (0.0-3.6) Creatine Kinase MB Relative Index 0.7 Troponin I 0.000 ng/mL (0.000-0.056) Total Protein 8.2 G/DL (6.4-8.2) Albumin 2.9 G/DL (3.4-5.0) L Globulin 5.3 g/dL Albumin/Globulin Ratio 0.5 (1.0-2.7) L Urine Color Yellow Urine Appearance Clear Urine pH 6 (4.5-8.0) Urine Specific [place] 1.010 (1.005-1.035) Urine Protein 2+ (NEGATIVE) H Urine Glucose (UA) Negative (NEGATIVE) Urine Ketones Negative (NEGATIVE) Urine Occult Blood Negative (NEGATIVE) Urine Nitrite Negative (NEGATIVE) Urine Bilirubin Negative (NEGATIVE) Urine Urobilinogen Normal MG/DL (0.0-1.0) Urine Leukocyte Esterase Negative (NEGATIVE) Urine RBC 0-2 /HPF (0 - 2) Urine WBC 0-2 /HPF (0 - 2) Urine Squamous Epithelial Cells Few /LPF (NONE/OCC) Urine Bacteria Few /HPF (NONE) EKG Diagnostic Results Rate: tachycardiac Rhythm: other - S.tachycardia ST Segments: no acute changes Rhythm Strip Diag. Results EP Interpretation: yes Rate: 100's Rhythm: no PVC's, no ectopy, other - S.tachycardia Chest X-Ray Diagnostic Results Chest X-Ray Diagnostic Results : Chest X-Ray Ordered: Yes # of Views/Limited/Complete: 1 View Indication: Other EP Interpretation: Yes Interpretation: no consolidation, no effusion, no pneumothorax, no acute cardiopulmonary disease Impression: No acute disease Electronically Signed by: Joce Last Vital Signs Date Time Temp Pulse Resp B/P (MAP) Pulse Ox O2 Delivery O2 Flow Rate FiO2 12/31/17 18:14 100.0 109 17 116/67 100 Room Air 100.0 Status: improved Disposition: ADMITTED INPATIENT Condition: Stable Referrals: NON PHYSICIAN (PCP) Kirti Guadalupe DO Dec 31, 2017 21:04
[2017-12-31 22:53] VITALS: BP 120/82
[2017-12-31] MEDS ORDERED: Acetaminophen 500mg (ES) tab ORAL PRN (23:45)
[2018-01-01] VITALS: BP 116/82
[2018-01-01] MEDS: D5NS 1,000 ML IV SCH ×2 (00:45→13:45)
[2018-01-01 04:00] VITALS: BP 120/60
[2018-01-01 06:47] LABS: HEMATOCRIT 26.6 % (37.0-47.0); HEMOGLOBIN 8.4 G/DL (12.0-16.0); MEAN CORPUSCULAR VOLUME 91 FL (80-99); PLATELET COUNT 258 K/UL (150-450); RED BLOOD COUNT 2.92 M/UL (4.20-5.40); RED CELL DISTRIBUTION WIDTH 18.9 % (11.6-14.8); WHITE BLOOD COUNT 2.6 K/UL (4.8-10.8)
[2018-01-01 07:19] LABS: ALANINE AMINOTRANSFERASE 44 U/L (12-78); ALBUMIN 2.5 G/DL (3.4-5.0); ALBUMIN/GLOBULIN RATIO 0.6 (1.0-2.7); ALKALINE PHOSPHATASE 94 U/L (46-116); ANION GAP 7 mmol/L (5-15); ASPARTATE AMINO TRANSFERASE 41 U/L (15-37); BILIRUBIN,TOTAL 0.2 MG/DL (0.2-1.0); BLOOD UREA NITROGEN 8 mg/dL (7-18); CALCIUM 8.8 MG/DL (8.5-10.1); CARBON DIOXIDE 27 MMOL/L (21-32); CHLORIDE 111 MMOL/L (98-107); CHOLESTEROL 172 MG/DL (< 200); CREATININE 0.8 MG/DL (0.55-1.30); FERRITIN 1211 NG/ML (8-388); HDL CHOLESTEROL 32 MG/DL (40-60); PHOSPHORUS 3.5 MG/DL (2.5-4.9); POTASSIUM 4.4 MMOL/L (3.5-5.1); SODIUM 145 MMOL/L (136-145); TRIGLYCERIDES 139 MG/DL (30-150)
[2018-01-01 07:35] LABS: % IRON SATURATION 20 % (15-50); IRON 48 ug/dL (50-175); TOTAL IRON BINDING CAPACITY 239 ug/dL (250-450)
[2018-01-01 08:00] VITALS: BP 124/69
--- NOTE | 2018-01-01 10:15 | Consultation ---
Consult Note Consult Note DATE OF CONSULTATION: 01/01/2018 HEMATOLOGY/ONCOLOGY CONSULTATION CONSULTING PHYSICIAN: Selvin Mahmood M.D. REQUESTING PHYSICIAN: Jennifer Moe M.D. REASON FOR CONSULTATION: Management of anemia. Leukopenia IDENTIFYING DATA: Dear Dr. Rodriguez, The patient is a pleasant 47-year-old female with history of HIV since 2013, stopped treatment of anti-retroviral therapy for two years, who at this time presents to [facility] with fevers, malaise, weakness, failure to thrive. She is noted to have a fever. Chest x-ray showed no acute infiltrate. Normal white count. Temperature elevated at this time to 102.8. Started her on antibiotics. Hematology Service was consulted for further evaluation and treatment. She now presents after passerbyers ont he street called EMS as she was laying out getting some sun, they were concerned and called ambulance. PAST MEDICAL HISTORY: HIV/AIDS, stopped treatment in 2015. SURGICAL HISTORY: None noted. MEDICATIONS: Reviewed. SOCIAL HISTORY: Lives at home. No alcohol, tobacco, or illicit drug use. REVIEW OF SYSTEMS: CONSTITUTIONAL: No fevers, chills, or night sweats. SKIN: No rashes, bumps, or itching. HEENT: No headache, hearing or vision changes. BREASTS: No lumps, pain, or discharge. PULMONARY: No cough, sputum, or shortness of breath. GASTROINTESTINAL: No nausea, vomiting, or diarrhea. GENITOURINARY: No dysuria, frequency, or urgency. MUSCULOSKELETAL: No muscle pain, joint swelling, or trauma. PHYSICAL EXAMINATION: VITAL SIGNS: Reviewed. GENERAL: No acute distress. PULMONARY: Decreased breath sounds. CARDIOVASCULAR: Regular rate. No S3 or S4. ABDOMEN: Soft, nontender, and nondistended. EXTREMITIES: A 1+ edema. LABORATORY DATA: wbc 2.6 hemoglobin 8.9, hematocrit 25, and platelet count 225 Assessment and Recs: #. 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 Poor control of HIV/AIDS, CD4 count of 1 --> Anemia workup has been reviewed, will rend daily --> hgb goal >7 --> closely monitor for improvement --> evaluate for opportunistic infections given low cd4 count #. Leukopenia likely related to underlying hiv/aids, history of UTI --> Pt on antibiotics --> ID consulted, has seen patient before #. Coagulopathy, elevated ptt, now better --> evaluate with a new ptt/inr #. HIV/AIDS. She has been off of treatment. --> Further monitor with ID Service. #. Heat stroke The time the note was entered does not necessarily correspond to the time the patient was seen. Selvin Mahmood MD Jan 01, 2018 10:15
--- NOTE | 2018-01-01 11:23 | Diagnostic Imaging Report ---
Indication: Shortness of breath Technique: One view of the chest Comparison: 12/20/2017 Findings: Lungs and pleural spaces are clear. Heart size is normal. No significant change Impression: No acute process
[2018-01-01 12:07] VITALS: BP 117/80
[2018-01-01] MEDS ORDERED: Azithromycin 600mg Tab ORAL SCH (13:00)
[2018-01-01] MEDS: Cefepime HCl 1 GM in D5W 55 ML IVPB SCH ×2 (13:56→21:30)
--- NOTE | 2018-01-01 15:18 | Consultation ---
Consult Note Consult Note fever and malaise, proteinuria, encephalopathy This patient has a known history of HIV and HIV encephalopathy. She is recently admitted here to [facility] for encephalopathy. She is HIV and meets AIDS criteria. Her workup was unremarkable at that time to include MRI of her brain. She is brought in by EMS for heat injury. Apparently she was laying out in the sun. She reports that she enjoys the heat and the sun and she laid down on the sidewalk to get some heat and sun. She states that some people maybe thought she was crazy and that's why they called the ambulance. EMS report that her temp was 102. The patient herself has no complaints. Allergies: Coded Allergies: SULFAMETHOXAZOLE (Verified Allergy, Unknown, 12/17/17) TRIMETHOPRIM (Verified Allergy, Unknown, 12/17/17) examined- data reviewed- Assessment/Plan -. Dehydration -. ? UTI. -. HIV - CD 4 less than 100 -. Psych condition -. Severe anemia. -. Non compliance and refusal of medication -. Fever -. HypoAlbuminemia Hydrate- ID eval Psych eval monitor renal parameters watch H&H Charli Sesay MD Jan 01, 2018 15:18
--- NOTE | 2018-01-01 15:36 | Cardiology Report ---
APPROVED REPORT EKG Measurement Heart [id number] NM [id number] Sinus tachycardia Otherwise normal ECG
--- NOTE | 2018-01-01 15:41 | Consultation ---
History of Present Illness General Date patient seen: Jan 01, 2018 Chief Complaint: Fever Present Illness HPI 47 yo with history of schizophrenia and HIV. The pt was seen here several time. She is recently admitted here to [facility] for encephalopathy. this time the pt is lucid and not disorganized she was able to provide reliable hx. the pt didn't endorse any psychotic/manic/depressive sxs. the pt memory and concentration have improved. No si/hi. i have spoken to sister during the last admission who is unreasonable and keep asking for psych unit. Allergies: Coded Allergies: SULFAMETHOXAZOLE (Verified Allergy, Unknown, 12/17/17) TRIMETHOPRIM (Verified Allergy, Unknown, 12/17/17) Medication History Scheduled Cephalexin* (Keflex*), 500 MG ORAL EVERY 6 HOURS, (Reported) Cephalexin* (Keflex*), 500 MG ORAL EVERY 6 HOURS, (Reported) Dolutegravir Sodium (Tivicay), 50 MG PO DAILY, (Reported) Emtricitabine/Tenofovir 200-300MG* (Truvada 200-300MG*), 1 TAB ORAL DAILY, ( Reported) Fluconazole (Fluconazole), 400 MG ORAL DAILY, (Reported) Risperidone* (Risperdal*), 6 MG ORAL BEDTIME, (Reported) Risperidone* (Risperdal*), 6 MG PO DAILY, (Reported) Miscellaneous Medications Unable to Obtain Medications (Unable To Obtain Meds), (Reported) Durable Medical Equipment Comp.stocking,Knee,Regular,Med (Truform Compression Stocking), EACH [facility], (DME) Patient History Limited by: medical condition History Provided By: Patient, Medical Record, PMD Healthcare decision maker Resuscitation status Full Code Advanced Directive on File No Past Medical/Surgical History Past Medical/Surgical History: (1) [id number] (2) Thrush (3) Adverse drug reaction (4) Fever (5) Headache (6) Headache (7) Leucopenia (8) Leukopenia (9) Sepsis (10) 73775 (11) UTI (urinary tract infection) (12) Altered mental status (13) Head trauma (14) Altered level of consciousness (15) [id number] (16) Pedal edema (17) Acute HIV infection syndrome (18) Acute confusion due to infection (19) Bacteremia due to Gram-negative bacteria (20) AIDS (21) Encephalopathy (22) Heat collapse Review of Systems Psychiatric: Reports: prior hx, anxiety, depressed feelings, emotional problems Physical Exam General Appearance: no apparent distress, alert Neurologic: oriented x 3, responsive, depressed affect Last 24 Hour Vital Signs Date Time Temp Pulse Resp B/P (MAP) Pulse Ox O2 Delivery O2 Flow Rate FiO2 01/01/18 12:07 97.9 81 18 117/80 (92) 100 97.9 01/01/18 08:55 Room Air 01/01/18 08:00 97.6 77 18 124/69 (87) 100 97.6 01/01/18 04:00 96.9 85 18 120/60 (80) 100 96.9 01/01/18 03:24 Room Air 01/01/18 00:00 98.2 86 20 116/82 (93) 95 98.2 12/31/17 23:30 98.0 109 17 120/82 100 Room Air 98.0 90 12/31/17 22:53 98.0 90 17 120/82 100 Room Air 98.0 12/31/17 18:14 100.0 109 17 116/67 100 Room Air 100.0 12/31/17 18:08 100.0 12/31/17 17:09 101.9 12/31/17 16:17 101.9 110 25 112/71 100 Room Air 101.9 12/31/17 16:03 103.0 130 18 113/74 99 Room Air 102.9 Intake and Output 12/31/17 01/01/18 19:00 07:00 Intake Total 300 ml 828 ml Balance 300 ml 828 ml Intake Oral 300 ml 360 ml IV Total 468 ml # Voids 2 Laboratory Tests Test 12/31/17 16:28 12/31/17 16:50 01/01/18 05:30 01/01/18 05:50 White Blood Count 7.2 K/UL (4.8-10.8) 2.6 K/UL (4.8-10.8) #L Red Blood Count 3.19 M/UL (4.20-5.40) L 2.92 M/UL (4.20-5.40) L Hemoglobin 9.2 G/DL (12.0-16.0) L 8.4 G/DL (12.0-16.0) L Hematocrit 29.0 % (37.0-47.0) L 26.6 % (37.0-47.0) L Mean Corpuscular Volume 91 FL (80-99) 91 FL (80-99) Mean Corpuscular Hemoglobin 28.7 PG (27.0-31.0) 28.9 PG (27.0-31.0) Mean Corpuscular Hemoglobin Concent 31.6 G/DL (32.0-36.0) L 31.8 G/DL (32.0-36.0) L Red Cell Distribution Width 19.0 % (11.6-14.8) H 18.9 % (11.6-14.8) H Platelet Count 252 K/UL (150-450) 258 K/UL (150-450) Mean Platelet Volume 5.8 FL (6.5-10.1) L 6.1 FL (6.5-10.1) L Neutrophils (%) (Auto) 82.2 % (45.0-75.0) H % (45.0-75.0) Lymphocytes (%) (Auto) 7.5 % (20.0-45.0) L % (20.0-45.0) Monocytes (%) (Auto) 5.1 % (1.0-10.0) % (1.0-10.0) Eosinophils (%) (Auto) 4.8 % (0.0-3.0) H % (0.0-3.0) Basophils (%) (Auto) 0.4 % (0.0-2.0) % (0.0-2.0) Sodium Level 133 MMOL/L (136-145) L 145 MMOL/L (136-145) # Potassium Level 3.9 MMOL/L (3.5-5.1) 4.4 MMOL/L (3.5-5.1) Chloride Level 98 MMOL/L (98-107) 111 MMOL/L (98-107) H Carbon Dioxide Level 24 MMOL/L (21-32) 27 MMOL/L (21-32) Anion Gap 11 mmol/L (5-15) 7 mmol/L (5-15) Blood Urea Nitrogen 7 mg/dL (7-18) 8 mg/dL (7-18) Creatinine 0.8 MG/DL (0.55-1.30) 0.8 MG/DL (0.55-1.30) Estimat Glomerular Filtration Rate > 60 mL/min (>60) > 60 mL/min (>60) Glucose Level 97 MG/DL (74-106) 78 MG/DL (74-106) Lactic Acid Level 1.00 mmol/L (0.4-2.0) Calcium Level 9.1 MG/DL (8.5-10.1) 8.8 MG/DL (8.5-10.1) Phosphorus Level 2.7 MG/DL (2.5-4.9) 3.5 MG/DL (2.5-4.9) Magnesium Level 1.6 MG/DL (1.8-2.4) L 1.9 MG/DL (1.8-2.4) Total Bilirubin 0.3 MG/DL (0.2-1.0) 0.2 MG/DL (0.2-1.0) Aspartate Amino Transf (AST/SGOT) 51 U/L (15-37) H 41 U/L (15-37) H Alanine Aminotransferase (ALT/SGPT) 47 U/L (12-78) 44 U/L (12-78) Alkaline Phosphatase 94 U/L (46-116) 94 U/L (46-116) Total Creatine Kinase 69 U/L (26-308) Creatine Kinase MB < 0.5 NG/ML (0.0-3.6) Creatine Kinase MB Relative Index 0.7 Troponin I 0.000 ng/mL (0.000-0.056) Total Protein 8.2 G/DL (6.4-8.2) 6.9 G/DL (6.4-8.2) Albumin 2.9 G/DL (3.4-5.0) L 2.5 G/DL (3.4-5.0) L Globulin 5.3 g/dL 4.4 g/dL Albumin/Globulin Ratio 0.5 (1.0-2.7) L 0.6 (1.0-2.7) L Urine Color Yellow Urine Appearance Clear Urine pH 6 (4.5-8.0) Urine Specific [place] 1.010 (1.005-1.035) Urine Protein 2+ (NEGATIVE) H Urine Glucose (UA) Negative (NEGATIVE) Urine Ketones Negative (NEGATIVE) Urine Occult Blood Negative (NEGATIVE) Urine Nitrite Negative (NEGATIVE) Urine Bilirubin Negative (NEGATIVE) Urine Urobilinogen Normal MG/DL (0.0-1.0) Urine Leukocyte Esterase Negative (NEGATIVE) Urine RBC 0-2 /HPF (0 - 2) Urine WBC 0-2 /HPF (0 - 2) Urine Squamous Epithelial Cells Few /LPF (NONE/OCC) Urine Bacteria Few /HPF (NONE) Urine Opiates Screen Negative (NEGATIVE) Urine Barbiturates Screen Negative (NEGATIVE) Phencyclidine (PCP) Screen Negative (NEGATIVE) Urine Amphetamines Screen Negative (NEGATIVE) Urine Benzodiazepines Screen Negative (NEGATIVE) Urine Cocaine Screen Negative (NEGATIVE) Urine Marijuana (THC) Screen Negative (NEGATIVE) Differential Total Cells Counted 100 Neutrophils % (Manual) 59 % (45-75) Lymphocytes % (Manual) 21 % (20-45) Monocytes % (Manual) 11 % (1-10) H Eosinophils % (Manual) 9 % (0-3) H Basophils % (Manual) 0 % (0-2) Band Neutrophils 0 % (0-8) Platelet Estimate Adequate Platelet Morphology Normal Hypochromasia 1+ Anisocytosis 1+ Target Cells Tear Drop Cells 1+ Hemoglobin A1c 5.5 % (4.3-6.0) Uric Acid 3.8 MG/DL (2.6-7.2) Iron Level 48 ug/dL (50-175) L Total Iron Binding Capacity 239 ug/dL (250-450) L Percent Iron Saturation 20 % (15-50) Unsaturated Iron Binding 191 ug/dL (112-346) Ferritin 1211 NG/ML (8-388) H C-Reactive Protein, Quantitative 2.2 mg/dL (0.00-0.90) H Pro-B-Type Natriuretic Peptide 341 pg/mL (0-125) H Triglycerides Level 139 MG/DL (30-150) Cholesterol Level 172 MG/DL (< 200) LDL Cholesterol 117 mg/dL (<100) H HDL Cholesterol 32 MG/DL (40-60) L Cholesterol/HDL Ratio 5.4 (3.3-4.4) H Vitamin B12 Level 334 PG/ML (193-986) Folate 13.4 NG/ML (8.6-58.9) Thyroid Stimulating Hormone (TSH) 1.854 uiU/mL (0.358-3.740) Height (Feet): 5 Height (Inches): 2.00 Weight (Pounds): 105 Medications Current Medications Medications (Trade) Dose Ordered Sig/Thierno Route PRN Reason Start Time Stop Time Status Last Admin Dose Admin Acetaminophen (Tylenol) 500 mg Q4H PRN ORAL Mild Pain/Temp > 100.5 12/31/17 23:45 01/30/18 23:44 Azithromycin (Zithromax) 1,200 mg ONCE A WEEK ORAL 01/01/18 13:00 01/08/18 12:59 01/01/18 13:45 Cefepime HCl 1 gm/ Dextrose 55 ml @ 110 mls/hr EVERY 12 HOURS IVPB 01/01/18 13:30 01/08/18 13:29 01/01/18 13:56 Dextrose/Sodium Chloride 1,000 ml @ 75 mls/hr [id number] IV 12/31/17 23:45 01/30/18 23:44 01/01/18 13:45 Dolutegravir Sodium (Tivicay) 50 mg EVERY 12 HOURS ORAL 01/01/18 21:00 01/31/18 20:59 Emtricitabine/ Tenofovir (Truvada 200/ 300mg) 1 tab DAILY ORAL 01/01/18 13:00 01/31/18 12:59 01/01/18 13:45 Pantoprazole (Protonix) 40 mg EVERY 12 HOURS ORAL 01/01/18 21:00 01/31/18 20:59 Assessment/Plan Status: stable Assessment/Plan Schizophrenia HIV the pt is not meeting the criteria for hold the pt will be restarted on her psych meds dc when medically cleared. Wesley Pérez MD Jan 01, 2018 15:41
[2018-01-01 16:00] VITALS: BP 121/80
--- NOTE | 2018-01-01 17:45 | History and Physical Report ---
DATE OF ADMISSION: 12/31/2017 HISTORY OF PRESENT ILLNESS: The patient comes in gravely disabled. Very poor historian. The patient has apparently AIDS since 2013. The patient says that she was in the [place] by the sidewalk lying down getting sun [place] and was weak. The patient was brought here to the ER and had a fever of 103. At times, the patient hallucinates. The patient also might have a HIV encephalopathy as well. The patient is a poor historian at times and is forgetful. The patient, however, denies chills. Denies cough. Denies nausea, vomiting, or diarrhea. Denies shortness of breath. The patient has lost approximately 30 pounds. Denies any rash. Denies chest pain. Denies any rectal bleeding. PAST MEDICAL HISTORY: Significant for AIDS, encephalopathy, and weight loss. PAST SURGICAL HISTORY: D and C. MEDICATIONS: Tivicay, Truvada, and Risperdal. ALLERGIES: Sulfa. FAMILY HISTORY: Noncontributory. SOCIAL HISTORY: Denies history of alcohol or drug abuse. Does have history of smoking. Lives with her mother currently. REVIEW OF SYSTEMS: HEENT: Denies headaches. RESPIRATORY: Denies shortness of breath. Denies cough. CARDIOVASCULAR: Denies chest pain. Denies nausea, vomiting, or diarrhea. EXTREMITY: Denies pain. V BEL[place]: No change in vision or speech pattern. Feels weak. PHYSICAL EXAMINATION: VITAL SIGNS: Temperature 98, pulse is 90, and blood pressure 120/82. HEENT: PERRLA. NECK: Supple. No lymphadenopathy. CHEST: Clear to auscultation. CARDIOVASCULAR: Regular rate and rhythm. GASTROINTESTINAL: Soft, nontender, and nondistended. No organomegaly. EXTREMITIES: No edema. Reflexes are equal on both sides. NEUROLOGIC: Moves all four extremities. Oriented x3. LABORATORY DATA: WBC of 7.2, hemoglobin 9.2, and platelets of 252,000. Sodium 133, potassium 3.9, chloride 98, BUN of 7, creatinine 0.8, and glucose of 97. ASSESSMENT: 1. Fever, rule out sepsis. 2. Encephalopathy. 3. Hyponatremia and low magnesium. PLAN: I have asked Dr. Pérez, Dr. Savita Lopes, ID team, as well as Dr. Sesay, and Dr. Mahmood to see the patient to help with the diagnosis of fever to find out where the fever is coming from as well as with the hallucinations as well as with weight loss to see if there is any cancer that is causing her to have weight loss as well as for further treatment of hyponatremia, dehydration, and the possible effects of as well. Payal Rodriguez M.D. DR: KEVIN JOB#: [id number] CC:
[2018-01-01 19:45] VITALS: BP 109/60
[2018-01-01] MEDS ORDERED: OLANZapine 10mg tab ORAL SCH (21:00)
[2018-01-01] MEDS: Dolutegravir Sodium 50mg tab ORAL SCH (21:31)
--- NOTE | 2018-01-01 23:45 | Consultation ---
DATE OF CONSULTATION: 01/01/2018 INFECTIOUS DISEASE CONSULTATION CONSULTING PHYSICIAN: Keith Blas M.D. PRIMARY ATTENDING PHYSICIAN: Payal Rodriguez M.D. REASON FOR CONSULT: Sepsis, HIV AIDS. HISTORY OF PRESENT ILLNESS: The patient is a 47-year-old female, admitted with hyperthermia and fever last night. She has a history of advanced HIV and is noncompliant with medication. She reported that she enjoys the heat and the sun and she laid down on the sidewalk to get heat and sun. She said that some people make out she was crazy and that is why they called the paramedics. AMS report shows that she had a temperature of 102 degrees. PAST MEDICAL HISTORY: History of HIV/AIDS, multiple admissions to the hospital and she was admitted to [facility] between 12/12/2017 through 12/16/2017 because of E. coli sepsis, then an another admission between 12/17/2017 and 12/23/2017. ALLERGIES: Allergic to trimethoprim and sulfamethoxazole. Also, maybe allergic to [place]ova[place]one. SOCIAL HISTORY: She has history of being homeless. She states that she is now with mother. Also, she has a son. She is single. REVIEW OF SYSTEMS: Denies any fever, chills, sore throat, runny nose, difficulty of swallowing, coughing, nausea, vomiting, dysuria, and . PHYSICAL EXAMINATION: VITAL SIGNS: Temperature 97.6 degrees, pulse 77, blood pressure 124/69, T-max is 103 degrees, and pulse at the time of admission was 130. GENERAL APPEARANCE: No acute distress. Awake, alert, verbal. HEAD AND NECK: No oral lesion. [place] conjunctivae. HEART: S1 and S2. Regular. LUNGS: Clear. ABDOMEN: Soft, nontender. EXTREMITIES: She has no edema. LABORATORY AND DIAGNOSTIC DATA: WBC 2.6, hemoglobin 8.4, hematocrit 26.6, and platelets 258. Sodium 145, potassium 4.4, chloride 111, bicarbonate 27, BUN 8, and creatinine 0.8. UA was negative. Chest x-ray was negative. IMPRESSION: 1. Sepsis or systemic inflammatory response syndrome with fever, leukopenia, and tachycardia. The patient also may have heat stroke. 2. Human immunodeficiency virus/acquired immunodeficiency syndrome. The last CD4 count was 1 with history of noncompliance. 3. The patient has anemia and leukopenia. 4. Seems to have psychiatric issue, may have schizophrenia. RECOMMENDATIONS: We will start MAC prophylaxis with Zithromax 1200 mg p.o. weekly. We will restart HIV medications. The patient states that she got Tivicay and Descovy in the past. Descovy is not available in the hospital. We will start her on Truvada. We will follow up the culture, empirically start on cefepime. At the end of my exam, I thank, Dr. Rodriguez for involving me in the care of this patient. Keith Blas M.D. DR: JULY JOB#: [id number] CC: SUSHANT
[2018-01-02] VITALS: BP 96/57
[2018-01-02 01:15] VITALS: BP 96/57
[2018-01-02] MEDS: D5NS 1,000 ML IV SCH ×2 (02:35→15:45)
[2018-01-02 04:00] VITALS: BP 107/63
[2018-01-02 08:00] VITALS: BP 102/69
[2018-01-02] MEDS: Dolutegravir Sodium 50mg tab ORAL SCH (08:31)
[2018-01-02] MEDS: Cefepime HCl 1 GM in D5W 55 ML IVPB SCH (09:19)
--- NOTE | 2018-01-02 11:25 | Nephrology Progress Note ---
Assessment/Plan Problem List: (1) Encephalopathy (2) AIDS (3) Fever (4) Hypoalbuminemia Assessment -. Dehydration -. ? UTI. -. HIV - CD 4 less than 100 -. Psych condition -. Severe anemia. -. Non compliance and refusal of medication -. Fever -. HypoAlbuminemia Plan Hydrate- ID eval Psych eval monitor renal parameters watch H&H Subjective ROS Limited/Unobtainable: No Constitutional: Reports: malaise Objective Objective Last 24 Hour Vital Signs Date Time Temp Pulse Resp B/P (MAP) Pulse Ox O2 Delivery O2 Flow Rate FiO2 01/02/18 08:55 Room Air 01/02/18 08:00 98.2 102 19 102/69 (80) 96 98.2 102 01/02/18 04:00 97.5 63 20 107/63 (78) 100 97.5 63 01/02/18 01:15 98.4 94 20 96/57 (70) 100 98.4 94 01/02/18 00:00 98.4 94 20 96/57 (70) 100 98.4 94 01/01/18 21:00 Room Air 01/01/18 19:45 97.9 85 20 109/60 (76) 99 97.9 85 01/01/18 16:00 98.1 94 18 121/80 (94) 100 98.1 01/01/18 12:07 97.9 81 18 117/80 (92) 100 97.9 Intake and Output 01/01/18 01/02/18 19:00 07:00 Intake Total 2360 ml Balance 2360 ml IV Total 860 ml Other 1500 ml # Voids 4 3 Height (Feet): 5 Height (Inches): 2.00 Weight (Pounds): 105 General Appearance: no apparent distress Objective no change Charli Sesay MD Jan 02, 2018 11:25
[2018-01-02 12:00] VITALS: BP 116/79
--- NOTE | 2018-01-02 13:04 | General Progress Note ---
Assessment/Plan Status: stable Assessment/Plan Assessment and Recs: #. 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 Poor control of HIV/AIDS, CD4 count of 1 --> Anemia workup has been reviewed, will rend daily --> hgb goal >7 --> closely monitor for improvement --> evaluate for opportunistic infections given low cd4 count #. Leukopenia likely related to underlying hiv/aids, history of UTI --> Pt on antibiotics --> ID consulted, has seen patient before #. Coagulopathy, elevated ptt, now better --> evaluate with a new ptt/inr #. HIV/AIDS. She has been off of treatment. --> Further monitor with ID Service. #. Heat stroke The time the note was entered does not necessarily correspond to the time the patient was seen. Subjective Date patient seen: Jan 02, 2018 ROS Limited/Unobtainable: Yes Hematologic/Lymphatic: Reports: anemia Allergies: Coded Allergies: SULFAMETHOXAZOLE (Verified Allergy, Unknown, 12/17/17) TRIMETHOPRIM (Verified Allergy, Unknown, 12/17/17) All Systems: reviewed and negative except above Subjective Pt wake and alert. No acute events. Objective Last 24 Hour Vital Signs Date Time Temp Pulse Resp B/P (MAP) Pulse Ox O2 Delivery O2 Flow Rate FiO2 01/02/18 08:55 Room Air 01/02/18 08:00 98.2 102 19 102/69 (80) 96 98.2 102 01/02/18 04:00 97.5 63 20 107/63 (78) 100 97.5 63 01/02/18 01:15 98.4 94 20 96/57 (70) 100 98.4 94 01/02/18 00:00 98.4 94 20 96/57 (70) 100 98.4 94 01/01/18 21:00 Room Air 01/01/18 19:45 97.9 85 20 109/60 (76) 99 97.9 85 01/01/18 16:00 98.1 94 18 121/80 (94) 100 98.1 Intake and Output 01/01/18 01/02/18 19:00 07:00 Intake Total 2360 ml Balance 2360 ml IV Total 860 ml Other 1500 ml # Voids 4 3 Height (Feet): 5 Height (Inches): 2.00 Weight (Pounds): 105 General Appearance: no apparent distress, alert EENT: PERRL/EOMI Neck: normal alignment Cardiovascular: tachycardia Respiratory/Chest: normal breath sounds, no respiratory distress Abdomen: soft Selvin Mahmood MD Jan 02, 2018 13:04
--- NOTE | 2018-01-02 14:10 | General Progress Note ---
Assessment/Plan Status: stable Assessment/Plan bipolar d/o Anxiety d/o depakote ativan prn dc when medically cleared risperdal Subjective Date patient seen: Jan 02, 2018 Neurologic/Psychiatric: Reports: anxiety Allergies: Coded Allergies: SULFAMETHOXAZOLE (Verified Allergy, Unknown, 12/17/17) TRIMETHOPRIM (Verified Allergy, Unknown, 12/17/17) Objective Last 24 Hour Vital Signs Date Time Temp Pulse Resp B/P (MAP) Pulse Ox O2 Delivery O2 Flow Rate FiO2 01/02/18 12:00 98.8 81 19 116/79 (91) 100 98.8 81 01/02/18 08:55 Room Air 01/02/18 08:00 98.2 102 19 102/69 (80) 96 98.2 102 01/02/18 04:00 97.5 63 20 107/63 (78) 100 97.5 63 01/02/18 01:15 98.4 94 20 96/57 (70) 100 98.4 94 01/02/18 00:00 98.4 94 20 96/57 (70) 100 98.4 94 01/01/18 21:00 Room Air 01/01/18 19:45 97.9 85 20 109/60 (76) 99 97.9 85 01/01/18 16:00 98.1 94 18 121/80 (94) 100 98.1 Intake and Output 01/01/18 01/02/18 19:00 07:00 Intake Total 2360 ml Balance 2360 ml IV Total 860 ml Other 1500 ml # Voids 4 3 Height (Feet): 5 Height (Inches): 2.00 Weight (Pounds): 105 General Appearance: no apparent distress, alert Neurologic: oriented x 3, responsive, depressed affect Wesley Pérez MD Jan 02, 2018 14:10
--- NOTE | 2018-01-02 14:12 | Infectious Diseases Prog Note ---
Assessment/Plan Assessment/Plan A; Sepsis HIV/AIDS Leukopenia Anemia Schizophrenia P; Continue Truvada & Tivicay Continue Zithromax Prophylaxis for MAC Refer to F Change Cefepime to Levaquin Agree with discharge to home Subjective ROS Limited/Unobtainable: Yes Allergies: Coded Allergies: SULFAMETHOXAZOLE (Verified Allergy, Unknown, 12/17/17) TRIMETHOPRIM (Verified Allergy, Unknown, 12/17/17) Objective Vital Signs Last 24 Hour Vital Signs Date Time Temp Pulse Resp B/P (MAP) Pulse Ox O2 Delivery O2 Flow Rate FiO2 01/02/18 12:00 98.8 81 19 116/79 (91) 100 98.8 81 01/02/18 08:55 Room Air 01/02/18 08:00 98.2 102 19 102/69 (80) 96 98.2 102 01/02/18 04:00 97.5 63 20 107/63 (78) 100 97.5 63 01/02/18 01:15 98.4 94 20 96/57 (70) 100 98.4 94 01/02/18 00:00 98.4 94 20 96/57 (70) 100 98.4 94 01/01/18 21:00 Room Air 01/01/18 19:45 97.9 85 20 109/60 (76) 99 97.9 85 01/01/18 16:00 98.1 94 18 121/80 (94) 100 98.1 Height (Feet): 5 Height (Inches): 2.00 Weight (Pounds): 105 General Appearance: no acute distress HEENT: atraumatic Respiratory/Chest: lungs clear Cardiovascular: normal rate Abdomen: soft, non tender Extremities: no edema Neurologic/Psychiatric: other - sleeping Microbiology Date/Time Source Procedure Growth Status 12/31/17 16:28 Blood Blood Culture - Preliminary NO GROWTH AFTER 24 HOURS Resulted 12/31/17 16:20 Blood Blood Culture - Preliminary NO GROWTH AFTER 24 HOURS Resulted 01/01/18 05:00 Sacral Wound Gram Stain - Final Resulted 01/01/18 05:00 Wound Culture - Preliminary Staphylococcus Sp Coag Neg Resulted Current Medications Medications (Trade) Dose Ordered Sig/Thierno Route PRN Reason Start Time Stop Time Status Last Admin Dose Admin Acetaminophen (Tylenol) 500 mg Q4H PRN ORAL Mild Pain/Temp > 100.5 7/24/18 23:45 01/30/18 23:44 Azithromycin (Zithromax) 1,200 mg ONCE A WEEK ORAL 01/01/18 13:00 01/08/18 12:59 01/01/18 13:45 Cefepime HCl 1 gm/ Dextrose 55 ml @ 110 mls/hr EVERY 12 HOURS IVPB 01/01/18 13:30 01/08/18 13:29 01/02/18 09:19 Dextrose/Sodium Chloride 1,000 ml @ 75 mls/hr [id number] IV 12/31/17 23:45 01/30/18 23:44 01/02/18 02:35 Dolutegravir Sodium (Tivicay) 50 mg EVERY 12 HOURS ORAL 01/01/18 21:00 01/31/18 20:59 01/02/18 08:31 Emtricitabine/ Tenofovir (Truvada 200/ 300mg) 1 tab DAILY ORAL 01/01/18 13:00 01/31/18 12:59 01/02/18 08:30 Olanzapine (ZyPREXA) 10 mg BEDTIME ORAL 01/01/18 21:00 01/31/18 20:59 01/01/18 21:34 Pantoprazole (Protonix) 40 mg EVERY 12 HOURS ORAL 01/01/18 21:00 01/31/18 20:59 01/02/18 08:30 Keith Blas MD Jan 02, 2018 14:12
[2018-01-02] MEDS ORDERED: LEVAQUIN750 MG ORAL (14:31)
[2018-01-02] MEDS ORDERED: TIVICAY50 MG ORAL (14:31)
[2018-01-02] MEDS ORDERED: ZITHROMAX250 MG ORAL (14:32)
[2018-01-02] MEDS ORDERED: D5NS 1000ml IV ONE (14:40)
[2018-01-02] MEDS ORDERED: Tubing IV Secondary IV ONE (14:40)
[2018-01-02] MEDS ORDERED: Depakote ER 500mg tab ORAL SCH (21:00)
--- NOTE | 2018-01-03 09:34 | Discharge Summary ---
Discharge Summary Discharge Summary _ DATE OF ADMISSION: 12/31/2017 DATE OF DISCHARGE: 01/02/2018 CONSULTANTS: Dr. Keith Sesay BRIEF HOSPITAL COURSE: Patient is a 47-year-old female, with known history of HIV and HIV encephalopathy, was brought in by EMS for heat injury. Apparently she was laying out in the sun, and people saw her called ambulance. Per EMS report temperature was 102. Patient herself had no complaints. On arrival to ED, temperature was 103. She has baseline encephalopathy. She was given cooling measures. She was started on IV fluids. Her temperature improved. Blood work was unremarkable. Urinalysis was negative. Chest x-ray showed no acute cardiopulmonary disease. At ED, attempts were made to reach patient's sister, as patient is not functional enough to care for herself and activities of daily living. She is gravely disabled and unable to be discharged on her own. She was then admitted for further evaluation. She underwent psychiatric evaluation. Patient has history of schizophrenia. She was restarted on her psychiatric meds. She did not meet criteria for a psychiatric hold. She was given IV hydration. She was restarted on HIV medications. Patient was on Tivicay and Descovy in the past. Descovy is not available at hospital formulary. She was then started on Truvada. She was started on MAC prophylaxis with Zithromax 1200 mg weekly. She was given cefepime for possible urinary tract infection. She had anemia and leukopenia due to myelosuppression and HIV. CD4 count was 1. She has noncompliance with medication. She came in with sacral wound. She was provided with wound care. Patient continued to be afebrile. Blood culture did not isolate any growth. Wound culture showed coagulase-negative staph. Cefepime was discontinued, switch to po Keflex upon discharge. Social service was called in to aid with placement. Sister was located. Patient was eventually discharged home. FINAL DIAGNOSES: Heatstroke, fever rule out sepsis HIV/AIDS HIV encephalopathy Bipolar disorder Anxiety disorder Anemia and leukopenia due to myelosuppression and HIV Coagulopathy Noncompliance with medication Hyponatremia Hypomagnesemia DISPOSITION: Patient was discharged home. DISCHARGE MEDICATIONS: Refer to Discharge Medication List. DISCHARGE INSTRUCTIONS: Follow up with PCP in a week. I have been assigned to dictate discharge summary on this account, and I was not involved in the patient's management. Vita Arellano NP Jan 03, 2018 09:34
== END 2018-01-02 17:30 | disposition home or self-care (01) | DRG 890 ==
LOC: EDBD 16:17 → EMR 16:33 → EDBEDREQ 21:39 → 4W 22:02 → EDBEDREQ 23:04
DX: A41.9 Sepsis, unspecified organism (principal); B20 Human immunodeficiency virus [HIV] disease; G93.40 Encephalopathy, unspecified; D68.9 Coagulation defect, unspecified; E83.42 Hypomagnesemia; E87.1 Hypo-osmolality and hyponatremia; E88.09 Other disorders of plasma-protein metabolism, not elsewhere classified; T67.0XXA Heatstroke and sunstroke, initial encounter; X32.XXXA Exposure to sunlight, initial encounter; Y92.480 Sidewalk as the place of occurrence of the external cause; Z88.2 Allergy status to sulfonamides; F20.9 Schizophrenia, unspecified; Z91.14 Patient's other noncompliance with medication regimen; D64.9 Anemia, unspecified; E86.0 Dehydration; F31.9 Bipolar disorder, unspecified; F41.9 Anxiety disorder, unspecified
CPT/HCPCS: 36415; 71045; 80053; 80061; 80307; 81003; 82550; 82553; 82607; 82728; 82746; 83036; 83540; 83550; 83605; 83735; 83880; 84100; 84443; 84484; 84550; 85007; 85025; 86140; 87040; 87070; 87081; 87205; 93005